=== PATIENT | female | born 1965 | race Caucasian/White ===

== ENCOUNTER 2021-03-09 13:52 | Emergency (ER) | payer OTHER, SELFPAY ==
[2021-03-09 14:05] VITALS: BP 122/69; PULSE 100; RESP 16; TEMP 38.9; O2SAT 99
--- NOTE | 2021-03-09 14:47 | ED.URI ---
HPI - URI/Sore Throat General Chief Complaint: Upper Respiratory Infection Stated Complaint: sore throat Time Seen by Provider: 03/09/21 14:50 Source: patient Mode of arrival: ambulatory Limitations: no limitations History of Present Illness HPI Narrative: 55-year-old female presented for complaint of body aches, nausea, sore throat onset today. States has been feeling bad for about 2 hours. Temperature 102.1. Has not taken anything for symptoms. She endorses her is under surveillance for COVID, awaiting his result. pt is not vaccinated for covid Related Data Allergies Allergy/AdvReac Type Severity Reaction Status Date / Time aspirin AdvReac Nausea Verified 03/09/21 15:01 Review of Systems Review of Systems: CONSTITUTIONAL: endorses body aches, fever, chills EYES: Denies visual changes, redness, or discharge. ENT: Endorses sore throat denies rhinorrhea, congestion, or otalgia. CARDIOVASCULAR: Denies chest pain, palpitations, or edema. RESPIRATORY: Denies cough or dyspnea. GASTROINTESTINAL: Denies abdominal pain, nausea, vomiting, or diarrhea. GENITOURINARY: Denies dysuria or hematuria. SKIN: Denies rash, itching, or wounds. MUSCULOSKELETAL: Denies back pain, joint pain, or myalgia. NEUROLOGIC: Denies headache, numbness, tingling, or weakness. PSYCH: Denies depression or anxiety. PMFSH Comments at time of signature, I have reviewed and agree with nursing past medical, surgical, social and family history unless otherwise noted. Please see nursing chart for further information. There is no relevant family history pertinent to the presenting complaint Exam Narrative: GENERAL: Ill-appearing, no acute distress. HEAD: Normocephalic EYES: PERRLA, conjunctivae clear ENT: Mucous membranes moist. TM pearly cho with dull light reflex bilaterally; no tragal tenderness. Oropharynx erythematous without lesions. Tonsils enlarged and without exudate, no drooling, no hoarseness, no trismus, uvula midline. NECK: Supple. No lymphadenopathy CHEST: Clear to auscultation, breath sounds equal. No wheezing, rhonchi, rales, or stridor. No respiratory distress, speaks in full sentences. HEART: Regular rate and rhythm. No murmur heard. SKIN: Warm, dry, no rash. NEURO: Alert and oriented x3. PSYCH: Normal mood and affect Course Course Emergency Course: strep neg flu neg PCR ordered Patient is aware of diagnosis, understands and agrees to treatment plan. Anticipatory guidance given. Patient agrees to follow-up as directed and is aware of reasons to seek care at the emergency department. Portions of this record may have been created with voice recognition software Level of Care: Express Care Visit Vital Signs Vital signs: Vital Signs Temperature 102.1 F H 03/09/21 14:05 Pulse Rate 100 03/09/21 14:05 Respiratory Rate 16 03/09/21 14:05 Blood Pressure 122/69 03/09/21 14:05 Pulse Oximetry 99 03/09/21 14:05 Temperature 102.8 F H 03/09/21 16:01 Pulse Rate 100 03/09/21 14:05 Respiratory Rate 16 03/09/21 14:05 Blood Pressure 122/69 03/09/21 14:05 Pulse Oximetry 99 03/09/21 14:05 reviewed MDM - URI/Sore Throat Differential Diagnosis Differential diagnosis: Likely upper respiratory infection, otitis media, viral infection and influenza Lab Data Labs: Influenza A Screen Negative Reference Range: Negative Influenza B Screen Negative Reference Range: Negative Strep Screen Presumptive Negative *(Reference Range: Negative)* Discharge Plan Discharge Clinical Impression: Viral infection Patient Disposition: Home, Self-Care Condition: Stable Instructions: Antibiotic Form, Viral Syndrome (ED), COVID-19 (Coronavirus Disease 2019) (ED) Additional Instructions: You must remain quarantined until the results of your
[2021-03-09 15:12] VITALS: TEMP 38.9
[2021-03-09] MEDS: ACETAMINOPHEN 500 MG TABLET 1000 MG PO (15:12)
[2021-03-09 16:01] VITALS: TEMP 39.3
[2021-03-09 16:45] VITALS: TEMP 39.4
[2021-03-10 21:02] LABS: SARS-CoV-2 RNA PCR Positive
== END 2021-03-09 16:48 | disposition home or self-care (01) ==
PROVIDERS: Emergency Provider Nurse Practitioner Family
DX: U07.1 COVID-19 (principal); E78.00 Pure hypercholesterolemia, unspecified; M79.7 Fibromyalgia
CPT/HCPCS: 87081; 87804; 87880; 99203; A9270; C9803; G0463; U0003; U0005

== ENCOUNTER 2021-03-15 15:07 | Emergency (ER) | payer OTHER, SELFPAY ==
[2021-03-15 15:25] VITALS: BP 126/78; PULSE 115; RESP 18; TEMP 36.4; O2SAT 99
--- NOTE | 2021-03-15 15:43 | ED.NAVMDI ---
HPI - Nausea/Vomiting/Diarrhea General Chief complaint: Nausea/Vomiting/Diarrhea Stated complaint: Nausea,headache,body aches Time Seen by Provider: 03/15/21 15:36 Source: patient and family Mode of arrival: ambulatory Limitations: no limitations History of Present Illness HPI Narrative: Jennifer is a 55-year-old female patient [facility] . Patient was diagnosed with COVID on 03/09/2021. Patient has had minor congestion and cough. Patient has had severe nausea the last few days. No vomiting. Patient complains of achiness and dizziness. States she has decreased appetite. MD elicited complaint: nausea Related Data Home Medications Medication Instructions Recorded Confirmed bupropion HCl 300 mg PO DAILY 03/15/21 03/15/21 metoprolol tartrate 50 mg PO DAILY 03/15/21 03/15/21 milnacipran [Savella] 50 mg PO DAILY 03/15/21 03/15/21 pantoprazole 40 mg PO DAILY 03/15/21 03/15/21 Allergies Allergy/AdvReac Type Severity Reaction Status Date / Time aspirin AdvReac Nausea Verified 03/15/21 15:43 Review of Systems Review of Systems: CONSTITUTIONAL: + body aches,+ fever, denies chills, or sweats. EYES: Denies visual changes, redness, or discharge. ENT: Denies rhinorrhea,+ congestion, sore throat, or otalgia. CARDIOVASCULAR: Denies chest pain, palpitations, or edema. RESPIRATORY: + cough denies dyspnea. GASTROINTESTINAL: Denies abdominal pain, +nausea, denies vomiting, or diarrhea. GENITOURINARY: Denies dysuria or hematuria. SKIN: Denies rash, itching, or wounds. MUSCULOSKELETAL: Denies back pain, joint pain, or myalgia. NEUROLOGIC: Denies headache, numbness, tingling, or weakness. PSYCH: Denies depression or anxiety. All systems reviewed & are unremarkable except as noted in HPI and below PMFSH Comments At time of signature, I have reviewed and agree with nursing past medical, surgical, social and family history unless otherwise noted. Please see nursing chart for further information. There is no relevant family history pertinent to the presenting complaint Exam Narrative: GENERAL: Well-appearing, well-nourished, appears ill. HEAD: Normocephalic, atraumatic. EYES: EOMI. No redness or drainage. Conjunctivae normal. ENT: Mucous membranes pink and minimally dry ; moist. Nares clear. No rhinorrhea. NECK: Normal AROM. Supple. No lymphadenopathy. CHEST: No respiratory distress. Clear to auscultation. HEART: Regular rate and rhythm. No murmur appreciated. Normal peripheral pulses. ABDOMEN: Soft, nontender, nondistended, normal active bowel sounds. MUSCULOSKELETAL: No bony tenderness. EXTREMITIES: Normal range of motion. No edema. SKIN: Warm, dry, no rash. Capillary refill normal. Normal skin turgor. NEURO: No focal deficits. Alert and oriented x3. Gait steady. PSYCH: Normal affect. No signs of depression or anxiety. Course Course Emergency Course: Patient was examined. Zofran 8 mg ODT was given. Patient will be given Zofran prescription. Patient is to gradually increase her fluids and food intake. Patient to follow-up as needed with her primary care. Patient to go to the ER for severe nausea and vomiting with decreased urine intake or inability to keep food or fluids down Level of Care: Express Care Visit Vital Signs Vital signs: Vital Signs Temperature 36.4 C L 03/15/21 15:25 Pulse Rate 115 H 03/15/21 15:25 Respiratory Rate 18 03/15/21 15:25 Blood Pressure 126/78 03/15/21 15:25 Pulse Oximetry 99 03/15/21 15:25 Temperature 36.4 C L 03/15/21 15:25 Pulse Rate 115 H 03/15/21 15:25 Respiratory Rate 18 03/15/21 15:25 Blood Pressure 126/78 03/15/21 15:25 Pulse Oximetry 99 03/15/21 15:25 MDM - Nausea/Vomiting/Diarrhea MDM Narrative Medical decision making narrative: Patient has COVID-19 was diagnosed on 03/09/2021. Patient is having severe nausea. Zofran 8 mg ODT was given to the patient. Patient will be given a prescription f
[2021-03-15] MEDS: ONDANSETRON HCL ODT 4 MG TABLET 8 MG SUBLINGUAL (15:47)
--- NOTE | 2021-03-15 16:21 | PC.NURSE ---
1618 pt states was only able to take 1/2 tablet becuase it was not dissolving fast enough. Pt sitting up in chair her spouse continues to do most of talking for her.
== END 2021-03-15 16:18 | disposition home or self-care (01) ==
PROVIDERS: Emergency Provider Nurse Practitioner Family
DX: U07.1 COVID-19 (principal); R11.0 Nausea; E78.00 Pure hypercholesterolemia, unspecified; M79.7 Fibromyalgia; F32.A Depression, unspecified
CPT/HCPCS: 99213; A9270; G0463

== ENCOUNTER 2022-04-01 11:48 | Emergency (ER) | payer OTHER, SELFPAY ==
[2022-04-01 11:53] VITALS: BP 116/70; PULSE 66; RESP 18; TEMP 36.7; O2SAT 99
--- NOTE | 2022-04-01 12:10 | ECG_ITS ---
Measurements Intervals [place] Rate: 75 P: 59 ND: 151 QRS: 26 QRSD: 88 T: 11 QT: 394 QTc: 440 Interpretive Statements SINUS RHYTHM NONSPECIFIC T-WAVE ABNORMALITY ABNORMAL ECG NO PREVIOUS ECG AVAILABLE FOR COMPARISON Electronically Signed On 04-01-2022 14:01:01 BOAT OPERATOR by Tk Betts M.D.
--- NOTE | 2022-04-01 12:12 | ED.CHESTPAIN ---
HPI - Chest Pain General Chief Complaint: Chest Pain Stated Complaint: cp Time Seen by Provider: 04/01/22 11:50 Source: patient, RN notes reviewed and old records reviewed Mode of arrival: ambulatory Limitations: no limitations History of Present Illness HPI narrative: 56-year-old FEMALE WHO PRESENTS TO [facility] with complaints of developing episode today at 1130 while at work of left upper chest pain radiating to her left shoulder with shoulder feeling tight;patient denies any nausea or vomiting,no diaphoresis noted or dyspnea, no radiation of pain to her back or to jaw. Pain has history of SVT and takes metoprolol daily with present heart rate 66 beats per minute MD complaint: chest pain and other (radiation to left shoulder) Pertinent past history: other (SVT) Onset (ago): hour(s) (today at 1130) Pain scale (0-10): 5 Treatment prior to arrival: none Related Data Home Medications Medication Instructions Recorded Confirmed bupropion HCl 300 mg 24 hr tablet, 300 mg PO DAILY 03/15/21 04/01/22 extended release metoprolol tartrate 50 mg tablet 50 mg PO DAILY 03/15/21 04/01/22 milnacipran 50 mg tablet (Savella) 50 mg PO DAILY 03/15/21 04/01/22 pantoprazole 40 mg tablet,delayed 40 mg PO DAILY 03/15/21 04/01/22 release pregabalin 150 mg capsule 150 mg DAILY 04/01/22 04/01/22 Allergies Allergy/AdvReac Type Severity Reaction Status Date / Time codeine Allergy Difficulty Verified 04/01/22 17:13 Breathing aspirin AdvReac Nausea Verified 04/01/22 17:13 Review of Systems Review of Systems: CONSTITUTIONAL: Denies fever, chills, or sweats. EYES: Denies visual changes, redness, or discharge. ENT: Denies rhinorrhea, congestion, sore throat, or otalgia. CARDIOVASCULAR: report left upper chest pain radiating to left shoulder with tightness feeling,no palpitations, or edema. RESPIRATORY: Denies cough or dyspnea. GASTROINTESTINAL: Denies abdominal pain, nausea, vomiting, or diarrhea. GENITOURINARY: Denies dysuria or hematuria. SKIN: Denies rash or itching. MUSCULOSKELETAL: Denies back pain, joint pain, or myalgia. NEUROLOGIC: Denies headache, numbness, or weakness. PSYCHIATRIC: Denies anxiety or depression. All systems reviewed & are unremarkable except as noted in HPI and below PMFSH Past Medical History Medical History (Updated 04/02/22 @ 12:08 by Celsa Akers NP) Atypical chest pain Hyperlipidemia SVT (supraventricular tachycardia) Surgical History Surgical History (Updated 04/02/22 @ 11:50 by Celsa Akers NP) H/O tubal ligation H/O: hysterectomy Family History Family History (Updated 04/02/22 @ 11:49 by Celsa Akers NP) Father Heart disease Acute myocardial infarction Hypertension Grandparent Heart disease Mother Stomach cancer Social History Social History (Updated 04/02/22 @ 11:56 by Celsa Akers NP) Smoking status: Former smoker Additional smoking assessment comments: quit 2006 Alcohol intake: never Substance use: never Living arrangements: with family Gender identity (if verbalized by the patient): Female Comments At time of signature, agree with nursing past medical, surgical, social and family history. There is no relevant family history pertinent to the presenting complaint Exam Narrative: GENERAL: Well-appearing, well-nourished, and in no acute distress. HEAD: Normocephalic, atraumatic. EYES: PERRLA and EOMI. ENT: Nares clear, no rhinorrhea or epistaxis. Mucous membranes moist.TM's normal with good light reflex, throat pink with no swelling NECK: Supple.no lymphadenopathy CHEST: Clear to auscultation. No respiratory distress.SAO2 99% on room air HEART: Regular rate and rhythm. No murmur heard. Normal peripheral pulses.no edema, left sided chest pain with radiation to left shoulder described as tightness, no dyspnea, no diahoresis noted ABDOMEN: Soft, nontender, nondistended, normal active bowel sounds. EXTREMITIES: Normal range of motion. No
== END 2022-04-01 12:10 | disposition short-term general hospital (02) ==
LOC: EXPCOLL 11:51
PROVIDERS: Emergency Provider Registered Nurse
DX: R07.9 Chest pain, unspecified (principal); R94.31 Abnormal electrocardiogram [ECG] [EKG]; Z87.891 Personal history of nicotine dependence; E78.5 Hyperlipidemia, unspecified
CPT/HCPCS: 93005; 99215; G0463

== ENCOUNTER 2022-04-01 12:30 | Emergency (ER) | payer OTHER, SELFPAY ==
[2022-04-01] VITALS (20 sets, daily range): BP systolic 111–131; BP diastolic 62–83; PULSE 72–85; RESP 11–22; TEMP 36.4; O2SAT 96–100
--- NOTE | ~2022-04-01 | XR_ITS ---
EXAMINATION: XR chest 2V DATE: 04/01/2022 13:16 INDICATION: Chest pain TECHNIQUE: PA and lateral views of the chest were obtained. COMPARISON: None FINDINGS: The lungs are clear with no focal airspace opacities, pulmonary edema, pleural effusion or pneumothor ax. The cardiomediastinal silhouette is normal. Visualized bones and soft tissues are unremarkable. IMPRESSION: 1. No acute cardiopulmonary disease. Reviewed, dictated and finalized at location A. PATTERN ASSEMBLER
--- NOTE | 2022-04-01 12:35 | ECG_ITS ---
Measurements Intervals [place] Rate: 72 P: 49 VA: 158 QRS: 23 QRSD: 85 T: -8 QT: 391 QTc: 429 Interpretive Statements SINUS RHYTHM LOW QRS VOLTAGE IN PRECORDIAL LEADS [QRS DEFLECTION < 1.0 mV IN CHEST LEADS] NONSPECIFIC ST & T-WAVE ABNORMALITY COMPARED TO ECG 04/01/2022 11:57:27 NO SIGNIFICANT CHANGES Electronically Signed On 04-02-2022 14:28:11 NURSE SUBSTANCE ABUSE by Mat Pickering M.D.
[2022-04-01 12:54] LABS: Basophils Absolute Auto 0.1 K/mm3 (0.0-0.1); Basophils Percent Auto 0.8 % (0.2-1.2); Eosinophils Absolute Auto 0.1 K/mm3 (0-0.3); Eosinophils Percent Auto 1.3 % (0-4.4); Hematocrit 43.3 % (37.0-47.0); Hemoglobin 14.5 g/dL (12.0-15.0); Immature Granulocyte Absolute 0.02 K/mm3 (0.00-0.031); Immature Granulocyte Percent A 0.2 % (0-0.5); Lymphocytes Absolute Auto 3.28 K/mm3 (0.9-3.2); Mean Corpuscular HGB Conc 33.5 g/dl (32-36); Mean Corpuscular Hemoglobin 30.3 pg (26-34); Mean Corpuscular Volume 90.4 fl (80-100); Mean Platelet Volume 10.3 fl (7.4-10.4); Monocytes Absolute Auto 0.6 K/mm3 (0.1-0.6); Monocytes Percent Auto 6.5 % (2.6-8.5); Neutrophils Percent Auto 55.2 % (45.5-73.1); Platelet Count Result 327 k/mm3 (150-375); Red Blood Count 4.79 M/mm3 (4.2-5.4); Red Cell Distribution Width 12.9 % (11.5-14.5); White Blood Count 9.1 K/mm3 (4.5-10.0)
[2022-04-01 13:02] LABS: Partial Thromboplastin Time 25.7 SECONDS (22.3-36.8); Prothrombin Time 13.2 Seconds (11.1-14.7)
[2022-04-01 13:04] LABS: Alanine Aminotransferase 47 U/L (6-35); Albumin Level 4.1 g/dL (3.5-5.1); Alkaline Phosphatase 79 U/L (38-126); Anion Gap 7 mmol/L (8-16); Aspartate Amino Transferase 50 U/L (14-36); Bilirubin,Total 0.7 mg/dL (0.2-1.3); Blood Urea Nitrogen 15 mg/dL (7-17); Carbon Dioxide 29 mmol/L (22-30); Chloride 103 mmol/L (98-107); Estimated Glomerular Filt Rate > 60; Glucose 135 mg/dL (65-110); Lipase 83 U/L (23-300); Potassium 4.1 mmol/L (3.4-5.0); Sodium 139 mmol/L (137-145)
[2022-04-01 13:15] LABS: Troponin I < 0.012 ng/mL (0.000-0.034)
[2022-04-01 17:41] LABS: Troponin I < 0.012 ng/mL (0.000-0.034)
--- NOTE | 2022-04-01 18:34 | ED.CHESTPAIN ---
HPI - Chest Pain General Chief Complaint: Chest Pain Stated Complaint: feels funny Time Seen by Provider: 04/01/22 18:34 Source: patient and family Mode of arrival: ambulatory Limitations: no limitations History of Present Illness HPI narrative: Patient is a 56-year-old female with a history of SVT and hyperlipidemia presenting to the emergency department for evaluation of chest pain that began around 11 AM today. Patient states that there was a weird episode where she felt very strange but then denied to be having any acute chest pain. She denied any focal lightheadedness or dizziness, states that it felt like a warmth came over her body. She denied any nausea, vomiting, shortness of breath. She denied any pleuritic chest pain. She did not pass out. Patient states that she thought she may be having a recurrent episode of SVT but then she denied any palpitation type sensation. Patient was referred here after being initially seen in urgent care. Patient without fever, chills, nausea or vomiting. Denies any infectious type symptoms. Denies any recent medication changes. Denies any recurrent symptoms and now feels well. Patient denies history of coagulopathy. No history of recent COVID infection. She denies leg swelling or calf pain. She denies recent surgery or immobility. Related Data Home Medications Medication Instructions Recorded Confirmed bupropion HCl 300 mg 24 hr tablet, 300 mg PO DAILY 03/15/21 04/01/22 extended release metoprolol tartrate 50 mg tablet 50 mg PO DAILY 03/15/21 04/01/22 milnacipran 50 mg tablet (Savella) 50 mg PO DAILY 03/15/21 04/01/22 pantoprazole 40 mg tablet,delayed 40 mg PO DAILY 03/15/21 04/01/22 release pregabalin 150 mg capsule 150 mg DAILY 04/01/22 04/01/22 Allergies Allergy/AdvReac Type Severity Reaction Status Date / Time codeine Allergy Difficulty Verified 04/01/22 17:13 Breathing aspirin AdvReac Nausea Verified 04/01/22 17:13 Review of Systems Review of Systems: CONSTITUTIONAL: Denies fever, chills, or sweats. EYES: Denies visual changes, redness, or discharge. ENT: Denies rhinorrhea, congestion, sore throat, or otalgia. CARDIOVASCULAR: Denies chest pain, palpitations, or edema. RESPIRATORY: Denies cough or dyspnea. GASTROINTESTINAL: Denies abdominal pain, nausea, vomiting, or diarrhea. GENITOURINARY: Denies dysuria or hematuria. SKIN: Denies rash or itching. MUSCULOSKELETAL: Denies back pain, joint pain, or myalgia. NEUROLOGIC: Denies headache, numbness, or weakness. [facility] Past Medical History Medical History (Updated 04/01/22 @ 19:37 by Celsa Brice MD) Atypical chest pain Hyperlipidemia SVT (supraventricular tachycardia) Social History Social History (Updated 04/01/22 @ 19:37 by Celsa Brice MD) Smoking status: Never smoker Alcohol intake: never Substance use: never Living arrangements: with family Gender identity (if verbalized by the patient): Female Exam Narrative: GENERAL: Awake, alert, conversant HEAD: Normocephalic, atraumatic. EYES: PERRLA and EOMI. ENT: Nares clear, no rhinorrhea or epistaxis. Mucous membranes moist. NECK: Supple. CHEST: No respiratory distress, breathing even and non labored HEART: Regular rate, sinus rhythm ABDOMEN:Non distended, non tender EXTREMITIES: Normal range of motion. No edema.No calf tenderness bilaterally. No erythema. SKIN: Warm, dry, no rash. NEURO:No focal deficits. Alert and oriented x3 Course Vital Signs Vital signs: Vital Signs Temperature 36.4 C 04/01/22 12:41 Pulse Rate 72 04/01/22 12:41 Respiratory Rate 19 04/01/22 12:41 Blood Pressure 130/83 04/01/22 12:41 Pulse Oximetry 100 04/01/22 12:41 Temperature 36.4 C 04/01/22 12:41 Pulse Rate 78 04/01/22 19:01 Respiratory Rate 11 L 04/01/22 19:01 Blood Pressure 123/66 04/01/22 19:00 Pulse Oximetry 98 04/01/22 19:01 MDM - Chest Pain MDM Narrative Medical decision making narrative
[2022-04-01 18:56] LABS: Troponin I < 0.012 ng/mL (0.000-0.034)
== END 2022-04-01 19:43 | disposition home or self-care (01) ==
PROVIDERS: Emergency Provider Emergency Medicine; PCP Internal Medicine Interventional Cardiology
DX: R07.89 Other chest pain (principal); E78.5 Hyperlipidemia, unspecified; R94.31 Abnormal electrocardiogram [ECG] [EKG]
CPT/HCPCS: 36415; 71046; 80053; 83690; 84484; 85025; 85610; 85730; 93005; 99284

== ENCOUNTER 2023-11-23 11:18 | Emergency (ER) | payer OTHER, SELFPAY ==
[2023-11-23 11:27] VITALS: BP 118/72; PULSE 73; RESP 16; TEMP 36.2; O2SAT 97
--- NOTE | 2023-11-23 11:36 | ED.EAR ---
HPI - Ear Problem General Chief complaint: Ear Stated complaint: ear infection Time Seen by Provider: 11/23/23 11:36 Source: patient Mode of arrival: ambulatory Limitations: no limitations History of Present Illness HPI Narrative: 58-year-old female presents with complaint of right ear pain for 2 days. Afebrile. Denies hearing changes but states she has been told recently from her coworkers that it seems like she is having difficulty hearing. Plans to discuss this with her primary care physician. Patient reports 2 weeks ago was having some sinus congestion, postnasal drainage but seem like it had resolved. No other complaints today. All systems reviewed and negative except as noted above. Related Data Home Medications Medication Instructions Recorded Confirmed bupropion HCl 300 mg 24 hr tablet, 300 mg PO DAILY 03/15/21 11/23/23 extended release metoprolol tartrate 50 mg tablet 50 mg PO DAILY 03/15/21 11/23/23 milnacipran 50 mg tablet (Savella) 50 mg PO BID 03/15/21 11/23/23 pantoprazole 40 mg tablet,delayed 40 mg PO DAILY 03/15/21 11/23/23 release pregabalin 150 mg capsule 150 mg PO BID 04/01/22 11/23/23 blood sugar diagnostic ([facility] 11/23/23 11/23/23 Verio test strips) cholecalciferol (vitamin D3) 125 125 mcg PO DAILY 11/23/23 11/23/23 mcg (5,000 unit) tablet (Vitamin D3) lancets 30 gauge (OneTouch Delica 11/23/23 11/23/23 Plus Lancet) semaglutide 3 mg tablet (Rybelsus) 3 mg PO DAILY 11/23/23 11/23/23 Allergies Allergy/AdvReac Type Severity Reaction Status Date / Time codeine Allergy Severe Difficulty Verified 11/23/23 11:25 Breathing aspirin AdvReac Intermediate Nausea Verified 11/23/23 11:25 Review of Systems Review of Systems: CONSTITUTIONAL: Denies fever, chills, or sweats. EYES: Denies visual changes, redness, or discharge. ENT: Denies rhinorrhea, congestion, sore throat . Reports right ear pain. CARDIOVASCULAR: Denies chest pain, palpitations, or edema. RESPIRATORY: Denies cough or dyspnea. GASTROINTESTINAL: Denies abdominal pain, nausea, vomiting, or diarrhea. GENITOURINARY: Denies dysuria or hematuria. SKIN: Denies rash or itching. MUSCULOSKELETAL: Denies back pain, joint pain, or myalgia. NEUROLOGIC: Denies headache, numbness, or weakness. PSYCHIATRIC: Denies anxiety or depression. All other systems reviewed are negative, except as documented in HPI. [facility] Past Medical History Medical History (Updated 11/23/23 @ 11:45 by Vaishali Romero NP) Atypical chest pain Hyperlipidemia SVT (supraventricular tachycardia) Surgical History Surgical History (Updated 04/02/22 @ 11:50 by Celsa Akers NP) H/O tubal ligation H/O: hysterectomy Family History Family History (Updated 04/02/22 @ 11:49 by Celsa Akers NP) Father Heart disease Acute myocardial infarction Hypertension Grandparent Heart disease Mother Stomach cancer Social History Social History (Updated 04/02/22 @ 11:56 by Celsa Akers NP) Smoking status: Former smoker Additional smoking assessment comments: quit 2006 Alcohol intake: never Substance use: never Living arrangements: with family Gender identity (if verbalized by the patient): Female Comments At time of signature, agree with nursing past medical, surgical, social and family history. There is no relevant family history pertinent to the presenting complaint. Exam Narrative: GENERAL: This is a well-nourished, well-developed patient, in no apparent distress. HEAD: normocephalic, atraumatic. EYES: PERRL. Sclera clear/white. Vision is grossly intact. EARS: External ears normal, auditory canals clear and without drainage, Left TM normal without perforation. Right TM is mildly erythematous with fluid. No perforation. Hearing grossly intact. NOSE: External nose normal with no obvious nasal discharge, nares without redness, no rhinorrhea. THROAT: Mucous membranes moist, posterior pharynx clear.
== END 2023-11-23 11:47 | disposition home or self-care (01) ==
PROVIDERS: Emergency Provider Nurse Practitioner Family; PCP Family Medicine Sports Medicine
DX: H65.01 Acute serous otitis media, right ear (principal); Z87.891 Personal history of nicotine dependence; E78.5 Hyperlipidemia, unspecified
CPT/HCPCS: 99213; G0463

== ENCOUNTER 2024-05-29 02:06 | Emergency (ER) | payer OTHER, SELFPAY ==
--- NOTE | ~2024-05-29 | XR_ITS ---
Portable chest x-ray Comparison: 04/01/2022 Clinical History: Heartburn Findings: Lungs are clear, without focal consolidation or pleural effusion. Cardiomediastinal silho uette is stable. Bones and soft tissues are unremarkable. Impression: Clear lungs. Reviewed, dictated and finalized at location . Impression: Clear lungs.
--- OUTSIDE RECORDS SUMMARY | 2024-05-29 02:08 | XMS_ITS | Referral Summary ---
Author Organization [facility] Address [address] [place] [address] Care Team Providers Care Chief Supply Chain Officer Name Role Phone Bhavana Castorena NP Primary Care Provider [phone] Encounters Date Type Department Care Team Description 05/02/2024 2:15 PM REMANUFACTURING TECHNICIAN Office Visit [facility] Care at [address] [phone] Kita Logan PA Diarrhea, unspecified type (Primary Dx) 03/21/2024 Telephone [facility] at [address] [phone] Bhavana Castorena NP PA for Ozempic 03/21/2024 10:30 AM REMANUFACTURING TECHNICIAN Office Visit [facility] at [address] [phone] Bhavana Castorena NP Type 2 diabetes mellitus without complication, without long-term current use of insulin (HCC) (Primary Dx); Recurrent major depressive disorder, in partial remission; Fibromyalgia; History of supraventricular tachycardia; Gastroesophageal reflux disease without esophagitis; Vitamin B12 deficiency; Vitamin D deficiency; Mixed hyperlipidemia; Visit for screening mammogram; Type 2 diabetes mellitus with hyperglycemia, without long-term current use of insulin (HCC) 03/15/[address] [address] Ira Yo MD 03/14/2024 Orders Only [facility] [address] [place] [phone] Tierra Orlando NP Fibromyalgia from Last 3 Months Allergies Active Allergy Reactions Criticality Noted Date Comments Aspirin Nausea only Low 06/02/2018 Glipizide Rash Medium 05/31/2023 Hydrocodone Shortness of breath High 09/08/2017 Itching Metformin Diarrhea Low 10/21/2022 Did not tolerate metformin ER 500 mg. Oxycodone-Acetaminophe n Anaphylaxis High 01/09/2018 Prednisone Shortness of breath High 06/02/2018 [place] Other (See comments) Low 09/08/2017 RESPIRATORY DISTRESS, SHORTNESS OF BREATH Acetaminophen-Codeine Other (See comments) Low 07/30 Makes her jittery Ondansetron Shortness of breath High 03/25/2021 Medications multivit-min/iron/ folic acid/K (ADULTS MULTIVITAMIN ORAL) Take 1 tablet by mouth daily Active cyanocobalamin, vitamin B-12, 1,000 mcg tablet extended release Take 1 tablet by mouth daily Active cholecalciferol (Vitamin D3) 5,000 unit tablet Take 1 tablet (5,000 Units total) by mouth daily Active alcohol swabs pads, medicatedIndicatio ns:Type 2 diabetes mellitus with hyperglycemia, without long-term current use of insulin (HCC) Test daily before breakfast 100 each 1 3 Active blood-glucose meter (OneTouch Verio Flex meter) miscIndications:Ty pe 2 diabetes mellitus with hyperglycemia, without long-term current use of insulin (HCC) Use 1 strip daily to test blood sugar prior to breakfast 1 each 3 Active rosuvastatin (CRESTOR) 20 mg tabletIndications: Mixed hyperlipidemia Take 1 tablet (20 mg total) by mouth daily 90 tablet 3 4 Active metoprolol tartrate (LOPRESSOR) 50 mg immediate release tabletIndications: Inappropriate sinus tachycardia Take 1 tablet (50 mg total) by mouth 2 (two) times a day 180 tablet 1 4 Active blood glucose diagnostic (glucose blood) stripIndications:T ype 2 diabetes mellitus with hyperglycemia, without long-term current use of insulin (HCC) Use 1 strip 3x to check blood sugar before meals 200 each 2 4 01/11/20 25 Active lancets (OneTouch Delica Plus Lancet) 30 gauge miscIndications:Ty pe 2 diabetes mellitus with hyperglycemia, without long-term current use of insulin ([facility]) Test blood glucose level three times daily before meals 200 each 2 4 Active milnacipran (Savella) 50 mg tabletIndications: Fibromyalgia Take 1 tablet (50 mg total) by mouth 2 (two) times a day 180 tablet 5 Active semaglutide (OZEMPIC) 0.25 mg or 0.5 mg (2 mg/3 mL) pen injector injection Inject 0.38 mL (0.2533 mg total) under the skin every 7 days 3 mL 1 5 Active pregabalin (LYRICA) 150 mg capsuleIndications :Fibromyalgia Take 1 capsule (150 mg total) by mouth 2 (two) times a day 180 capsule [address] (PROTONIX) 40 mg EC tabletIndications: Gastroesophageal reflux disease without esophagitis Take 1 tablet (40 mg total) by mouth daily 90 tablet 1 5 Active buPROPion XL (WELLBUTRIN XL) 300 mg 24 hr tabletIndications: Fibromyalgia Take 1 tablet (300 mg total) by mouth every morning 90 tablet 3 5 Active Active Problems Problem Noted Date Diagnosed Date 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 Continue pain medications. Patient does have some chronic pelvic pain issues at times but this is been stable recently Nonrheumatic mitral (valve) insufficiency 2016 Overview (04/28/2022): Trace to mild on echo cardiac and done on 04/12/2016 Type 2 diabetes mellitus wit hout complication, without long-term current use of insulin 06/17/2016 Assessment & Plan (03/21/2024 11:47 AM REMANUFACTURING TECHNICIAN): She has difficulty taking rybelsus due to schedule and she hasn't been able to increase dose due to stomach upset. I would like to try ozempic with her. Discussed starting dose of .25mg weekly. start pt on ozempic 0.25mg weekly x 2-4 wks, then increase to 0.5mg x 2-4 wks, then return to office. Demo pen used to show pt how to use the medication. Discussed that fluid in window needs to be clear, prime with the 2 dots on first use of pen only. Discussed the importance of site rotation, stay 2 fingerbreadths away from belly button. Inject until you hear the full click, then count to 5 before removing pen. Discussed the importance of cutting meals in half starting after first dose. Discussed that this will slow gastric emptying which will make pt feel full longer and fill up faster. Discussed the one bite or one gulp too much scenario that can increase nausea/vomiting. Listen to your body. Reiterated that pt does not have family or personal history of medullary thyroid cancer or pancreatitis. Assessment & Plan (09/13/2023 6:31 PM CDT): Chronic. Controlled. Tolerating the Rybelsus 3 mg daily. Given diabetes well-controlled we will see if the insurance will allow her to stay on 3 mg dose. If not covered long-term then we may have to try going up to the 7 mg dose but I do worry she could have some mild intolerance of the dose as it took her awhile to tolerate the 3. Continue working on diabetic diet, exercise and weight loss. We still need a copy of her last report Assessment & Plan (05/26/2023 7:54 PM CDT): Chronic. Poorly controlled. Control has been worsening over the last several months. Patient previously had been intolerant to metformin. She refused to try an alternative medication at last visit with a request to do 3 months of additional diet and lifestyle changes. Given control is not improving today and has actually gotten worse patient is advised that we do need to really start her on a medication. We discussed various medication options including SGLT2 medications, Rybelsus, GLP 1 injections as well as sulfonylureas like glipizide. After discussion of the risks and benefits of these options patient elected to start with glipizide. We did discuss risk for hypoglycemia, weight gain in addition to alternative side effects. She is to take daily. Encouraged patient to really work on diabetic diet, exercise and weight loss. Diabetes Education Reviewed diabetic disease process, standards of care, and possible disease complications I have discussed the following steps for improving diabetic care: diabetic diet with healthy meals that are low salt, low fat, high fiber daily 30 minutes of exercise (45-60 minutes if trying to lose weight) Encouraged to loose weight if overweight/obese, or maintain a healthy body weight if BMI normal home glucose monitoring and goals (fast 70-130 and 2 hr PP <180) HgA1C goal <7% If checking home bp, goal less than 140/90 on average, even better if <130/85 Check feet daily for sores, dryness, cracking; use daily moisturizer if needed and invest in good shoes See eye doctor at least once per year and have report sent to us KAREN (obstructive sleep apnea) 01/14/2016 Overview (08/23/2022): Not currently on CPAP due to remote intolerance. Has not had evaluation or care in many years Recurrent major depressive disorder, in partial remission 01/13/2016 Assessment & Plan (09/13/2023 6:31 PM CDT): Chronic. Mood is controlled. Continue current medication Assessment & Plan (05/26/2023 7:53 PM CDT): Chronic. Stable on bupropion. Continue. She has not currently ready to get off medication Osteopenia 01/13/2016 History of supraventricular tachycardia 10/22/19 16 Overview (01/08/2019): History of it being aborted with adenosine on 01/18/2014 with recurrent palpitations consistent with SVT status post electrophysiology study and radiofrequency ablation by Dr. Verduzco in December 2014 without recurrence. Assessment & Plan (03/21/2024 10:50 AM REMANUFACTURING TECHNICIAN): Hx SVT, has had an ablation. Currently on metoprolol 50mg bid. Still sees cardiology. - Dr Guevara Assessment & Plan (09/13/2023 6:30 PM CDT): Denies recent episodes. Continue beta-samantha. Monitor Assessment & Plan (05/26/2023 7:56 PM CDT): Chronic. No recent episodes. Remains on beta-samantha for heart rate control. Patient worries about any diabetic medications that could increase risk for heart rate elevation Sinus tachycardia 10/22/2015 Overview (04/28/2022): Nearly 70% of the time as noted on 24 hour Holter monitor, resolved on Toprol-XL 50 mg daily asymptomatic. Assessment & Plan (09/13/2023 6:31 PM CDT): Remains controlled with metoprolol. Continue. Asymptomatic Assessment & Plan (05/26/2023 7:58 PM CDT): Chronic history of intermittent sinus tachycardia. Has been controlled with beta-blockers. Continue metoprolol. Patient is afraid to consider diabetic meds if they carry any risk for elevated heart rate Solitary pulmonary nodule 10/22/2015 Overview (03/21/2024): CT scans were followed for 4 years and were stable and no further follow up recommended GERD (gastroesophageal reflux disease) 6 Assessment & Plan (03/21/2024 10:51 AM REMANUFACTURING TECHNICIAN): Stable on current medication. Continue pantoprazole as ordered. May follow up in 6 months Assessment & Plan (05/26/2023 7:59 PM CDT): Chronic. Stable. Continue Protonix. Patient likely still needs to get an EGD for screening given family history of strong symptoms and her inability to wean off PPI in the future. Encouraged her to schedule with GI Vitamin B12 deficiency 09/03/2015 Assessment & Plan (03/21/2024 10:52 AM REMANUFACTURING TECHNICIAN): Currently on oral B12 Vitamin D deficiency 09/03/2015 Assessment & Plan (03/21/2024 11:48 AM REMANUFACTURING TECHNICIAN): Continues on oral vitamin d Mixed hyperlipidemia 09/03/2015 Assessment & Plan (03/21/2024 10:52 AM REMANUFACTURING TECHNICIAN): Lipid abnormalities are stable, reviewed previous lipid levels in [facility]. Continue statin therapy. Crestor (rosuvastatin) Order for lipid panel was given today to be obtained. Pt voiced understanding of lab drawn and continuation of current medication regimen. Assessment & Plan (09/13/2023 6:31 PM CDT): Chronic. Tolerates rosuvastatin. Continue Assessment & Plan (05/26/2023 7:55 PM CDT): Chronic. Tolerates rosuvastatin. Continue/.. Plan to target LDL goal less than 70 eventually Fibromyalgia 05/12/2015 Assessment & Plan (03/21/2024 10:49 AM REMANUFACTURING TECHNICIAN): Start to wean some medication per patient request. Will decrease savella to once a day for 1-2 weeks and then discontinue. Will have her follow up in 3 months for med check. Continue lyrica. Assessment & Plan (09/13/2023 6:31 PM CDT): Chronic. Relatively stable. Continue current regimen as prescribed mentioned in HPI Assessment & Plan (05/26/2023 7:55 PM CDT): Chronic. Tolerates medications. We will go ahead and refill the Savella as well as continue the current dose of Lyrica. Encouraged to work on diet, exercise and weight loss. Advised at regular x-rays is 1 remains his maintaining control fibromyalgia which is why it is very important she tries to get a least some physical activity Resolved Problems Problem Noted Date Diagnosed Date Resolved Date Myocardial ischemia 05/04/2022 05/05/19 23 Dyspnea in pediatric patient 04/28/2022 08/23/2022 Palpitations in pediatric patient 04/28/2022 05/04/2022 Postprandial epigastric pain 04/28/2022 08/23/2022 Epigastric pain 06/25/2019 08/23/2022 Abnormal ECG 06/25/2019 08/23/2022 Nonrheumatic mitral valve regurgitation 06/25/2019 09/13/2023 Body mass index (BMI) of 31.0-31.9 in adult 12/09/2016 08/23/2022 Constipation 09/22/2016 08/23/2022 Hyperlipidemia 08/01/2016 08/23/2022 Chest pain 06/09/2016 08/23/2022 Overview (04/28/2022): /Pressure and pressure underneath her diaphragm lasting about 18 hours with normal cardiac enzymes and normal EKG is seen in the emergency department on 07/19/2017 , no symptoms with her regular exercise regimen with no scintigraphic evidence of ischemia Nausea 06/09/2016 08/23/2022 Dry mouth 06/09/2016 03/21/2024 Elevated fasting blood sugar 06/09/2016 08/23/2022 Obesity due to excess calori es with serious comorbidity 06/09/2016 03/21/2024 Assessment & Plan (09/13/2023 6:32 PM CDT): Chronic. Suboptimally controlled. Encouraged healthy diet, exercise and weight loss Assessment & Plan (05/26/2023 7:57 PM CDT): Chronic. Uncontrolled. Needs improvement. Counseled on healthy diet, exercise, weight loss. Encouraged her to work on diet and lifestyle modifications to help get BMI had in the right direction. Patient is aware the glipizide can carry some risk for slight weight gain as a side effect but declined alternative diabetic medications that can have weight loss benefits Hyperlipidemia 01/14/2016 08/23/2022 Iron deficiency 01/14/2016 08/23/2022 Pelvic adhesions 01/14/2016 03/21/2024 Well woman exam 12/10/2015 08/23/2022 Dizziness 10/22/2015 08/23/2022 Overview (04/28/2022): Associated with shortness of breath, now resolved. She had nonspecific ST abnormality during SVT had a normal Lexiscan Myoview stress test on 01/19/2014 Reactive depression (situational) 09/03/2015 08/23/2022 Snoring 09/03/2015 08/23/2022 Chronic fatigue 06/09/2015 08/23/2022 Immunizations Immunization Administration Dates Next Due Influenza, Unspecified 02/28/2023(Deferred: Nadia ent Refused) TD Preservative Free 09/03/2007 Tdap 09/03/2007 Social History Tobacco Use Types Packs/Day Years Used Date Smoking Tobacco: Former Smokeless Tobacco: Never Tobacco Cessation:Counseling Given: Not Answered Alcohol Use Standard Drinks/Week Comments Not Currently 0 (1 standard drink = 0.6 oz pur e alcohol) AUDIT-C Answer Date Recorded Q1: How often do you have a drink containing alcohol? Never 03/21/2024 Q2: How many drinks containi ng alcohol do you have on a typical day when you are drinking? Patient does not drink Q3: How often do you have si x or more drinks on one occasion? Never 03/21/2024 PHQ-2 Answer Date Recorded PHQ-2 Total Score (If total score is 3 or more points, staff should administer the PHQ-9) 0 09/13/2023 Personal Safety Answer Date Recorded Have you ever been in or are you currently in a harmful physical or emotional relationship or is someone making you feel afraid or unsafe? Denies 06/09/2022 Comments No Sex and Gender Information Value Date Recorded Sex Assigned at Not on file Legal Sex Female 8:40 AM REMANUFACTURING TECHNICIAN Gender Identity Not on file Sexual Orientation Not on file Last Filed Vital Signs Vital Sign Reading Time Taken Comments Blood Pressure 96/63 05/02/2024 2:10 PM REMANUFACTURING TECHNICIAN Pulse 89 05/02/2024 2:10 PM REMANUFACTURING TECHNICIAN Temperature 36.7 C (98 F) 05/02/2024 2:10 PM REMANUFACTURING TECHNICIAN Respiratory Rate 16 05/02/2024 2:10 PM REMANUFACTURING TECHNICIAN Oxygen Saturation 98% 05/02/2024 2:10 PM REMANUFACTURING TECHNICIAN Inhaled Oxygen Concentration - - Weight 77.6 kg (171 lb) 05/02/2024 2:10 PM REMANUFACTURING TECHNICIAN Height 149.9 cm (4' 11 ) 03/21/2024 10:32 AM REMANUFACTURING TECHNICIAN Body Mass Index 34.54 03/21/2024 10:32 AM REMANUFACTURING TECHNICIAN Plan of Treatment Not on file Procedures Procedure Name Priority Date/Time Associated Diagnosis Comments POCT HEMOGLOBIN A1C Routine 03/21/2024 10:43 AM REMANUFACTURING TECHNICIAN Type 2 diabetes mellitus with hyperglycemia, without long-term current use of insulin (HCC) THYROID FUNCTION CASCADE Routine 03/16/2024 7:45 AM REMANUFACTURING TECHNICIAN Type 2 diabetes mellitus without complication, without long-term current use of insulin (HCC) Sinus tachycardia ALBUMIN CREATININE RATIO, URINE Routine 03/16/2024 7:45 AM REMANUFACTURING TECHNICIAN Type 2 diabetes mellitus without complication, without long-term current use of insulin (HCC) CBC WITH AUTO DIFFERENTIAL Routine 03/16/2024 7:45 AM REMANUFACTURING TECHNICIAN Type 2 diabetes mellitus without complication, without long-term current use of insulin (HCC) LIPID PANEL Routine 03/16/2024 7:45 AM REMANUFACTURING TECHNICIAN Type 2 diabetes mellitus without complication, without long-term current use of insulin (HCC) Mixed hyperlipidemia COMPREHENSIVE METABOLIC PANEL Routine 03/16/2024 7:45 AM REMANUFACTURING TECHNICIAN Type 2 diabetes mellitus without complication, without long-term current use of insulin (HCC) Mixed hyperlipidemia HEPATITIS B CORE IGM Routine 03/16/2024 7:45 AM REMANUFACTURING TECHNICIAN Need for hepatitis B screening test HEPATITIS B SURFACE ANTIBODY (IMMUNE STATUS) Routine 03/16/2024 7:45 AM REMANUFACTURING TECHNICIAN Need for hepatitis B screening test HEPATITIS B SURFACE ANTIGEN Routine 03/16/2024 7:45 AM REMANUFACTURING TECHNICIAN Need for hepatitis B screening test HEPATITIS C ANTIBODY Routine 03/16/2024 7:45 AM REMANUFACTURING TECHNICIAN Encounter for hepatitis C screening test for low risk patient SCREENING MAMMOGRAM BILATERAL W SERAFIN Schedule Routine, Read Routine (OP Routine) 02/09/2023 4:24 PM REMANUFACTURING TECHNICIAN Screening mammogram, encounter for from Last 3 Months or Most Recently Relevant to Health Maintenance Results * POCT hemoglobin A1c (03/21/2024 10:43 AM REMANUFACTURING TECHNICIAN) Hemoglobin A1C, POC 7.9 4.0 - 5.6 % Blood 03/21/2024 10:4 3 AM REMANUFACTURING TECHNICIAN Bhavana Castorena NP POINT OF CARE TEST ORDERABLES Final Result * Thyroid Function [place] (03/16/2024 7:45 AM REMANUFACTURING TECHNICIAN) Pathologist [facility] TSH 1.180 0.450 - 4.500 uIU/mL [facility] - 01 Comment: No apparent thyroid disorder. Additional testing not indicated. In rare instances, Secondary Hypothyroidism as well as Subclinical Hypothyroidism have been reported in some patients with normal TSH values. Blood 03/16/2024 7:45 AM REMANUFACTURING TECHNICIAN 03/16/2024 Narrative [facility] - 03/17/2024 2:07 AM REMANUFACTURING TECHNICIAN Performed at: - [address] [id number] Lockstitch Lining Setter: Salvatore Chase PhD, Phone: [phone] Denise Regalado MD LAB BLOOD ORDERABLES F inal Result [facility] - 01 * CBC with auto differential (03/16/2024 7:45 AM REMANUFACTURING TECHNICIAN) Pathologist [facility] WBC 8.5 3.4 - 10.8 x10E3/uL [facility] - 01 RBC 4.66 3.77 - 5.28 x10E6/uL [facility] - 01 Hgb 13.7 11.1 - 15.9 g/dL [facility] - 01 Hct 42.6 34.0 - 46.6 % [facility] - 01 MCV 91 79 - 97 fL [facility] - 01 MCH 29.4 26.6 - 33.0 pg [facility] - 01 MCHC 32.2 31.5 - 35.7 g/dL [facility] - 01 Rdw 12.6 11.7 - 15.4 % [facility] - 01 Platelets 348 150 - 450 x10E3/uL [facility] - 01 Neutrophils pct 56 Not Estab. % [facility] - 01 Lymphs pct 32 Not Estab. % [facility] - 01 Monocytes pct 6 Not Estab. % [facility] - 01 Eosinophils pct 5 Not Estab. % [facility] - 01 Basophil pct 1 Not Estab. % [facility] - 01 Neutrophil abs 4.8 1.4 - 7.0 x10E3/uL [facility] - 01 Lymphs (Absolute) 2.7 0.7 - 3.1 x10E3/uL [facility] - 01 Monocyte abs 0.5 0.1 - 0.9 x10E3/uL [facility] - 01 Eosinophils, abs 0.4 0.0 - 0.4 x10E3/uL [facility] - 01 Basophils, abs 0.1 0.0 - 0.2 x10E3/uL [facility] - 01 Immature Granulocytes 0 Not Estab. % [facility] - 01 Immature Grans (Abs) 0.0 0.0 - 0.1 x10E3/uL [facility] - 01 Blood 03/16/2024 7:45 AM REMANUFACTURING TECHNICIAN 03/16/2024 Narrative [facility] - 03/17/2024 12:06 AM REMANUFACTURING TECHNICIAN Performed at: [address] [place] [id number] Lockstitch Lining Setter: Salvatore Chase PhD, Phone: [phone] Denise Regalado MD LAB BLOOD ORDERABLES F inal Result [facility] - * Hepatitis C antibody Blood (03/16/2024 7:45 AM REMANUFACTURING TECHNICIAN) [facility] [address] Hep C Ab Non Reactive Non Reactive [facility] - 01 Comment: HCV antibody alone does not differentiate between previously resolved infection and active infection. Equivocal and Reactive HCV antibody results should be followed up with an HCV RNA test to support the diagnosis of active HCV infection. Blood 03/16/2024 7:45 AM REMANUFACTURING TECHNICIAN 03/16/2024 Narrative [facility] - 03/17/2024 5:07 AM REMANUFACTURING TECHNICIAN Performed at: [address] [place] [id number] Lockstitch Lining Setter: Salvatore Chase PhD, Phone: [phone] Denise Regalado MD LAB MICROBIOLOGY - GEN ERAL ORDERABLES Final Result Performing Organization Address [facility] Co de Phone Number [facility] - * Albumin Creatinine Ratio, Urine (03/16/2024 7:45 AM REMANUFACTURING TECHNICIAN) [facility] [address] Creatinine ur 186.6 Not Estab. mg/dL [facility] - 01 Microalbumin, ur 22.6 Not Estab. ug/mL [facility] - 01 Microalbumin/cre at ratio 12 0 - 29 mg/g creat [facility] - 01 Comment: Normal: 0 - 29 Moderately increased: 30 - 300 Severely increased: >300 Urine 03/16/2024 7:45 AM REMANUFACTURING TECHNICIAN 03/16/2024 Narrative [facility] - 03/17/2024 5:07 AM REMANUFACTURING TECHNICIAN Performed at: [address] [place], [place] [id number] Lockstitch Lining Setter: Salvatore Chase PhD, Phone: [phone] Denise Regalado MD LAB URINE ORDERABLES F inal Result Performing Organization Address [facility] de Phone Number [facility] * Hepatitis B core antibody, IgM Blood (03/16/2024 7:45 AM REMANUFACTURING TECHNICIAN) [facility] [address] Hep B core IgM Negative Negative [facility] - Blood 03/16/2024 7:45 AM REMANUFACTURING TECHNICIAN 03/16/2024 Narrative [facility] - 03/17/2024 5:07 AM REMANUFACTURING TECHNICIAN Performed at: [address] [id number] Lockstitch Lining Setter: Salvatore Chase PhD, Phone: [phone] Denise Regalado MD LAB MICROBIOLOGY - GEN ERAL ORDERABLES Final Result Performing Organization Address [facility] de Phone Number [facility] * Hepatitis B surface antibody (immune status) Blood (03/16/2024 7:45 AM REMANUFACTURING TECHNICIAN) [facility] [address] HBsAb (immune status) Non Reactive [facility] - 01 Comment: Non Reactive: Not immune to HBV infection. Equivocal: Unable to determine if anti-HBs is present at levels consistent with immunity. Reactive: Anti-HBs concentration detected at greater than 10 mIU/mL. Individual is considered to be immune to infection with HBV. Blood 03/16/2024 7:45 AM REMANUFACTURING TECHNICIAN 03/16/2024 Narrative [facility] - 03/17/2024 5:07 AM REMANUFACTURING TECHNICIAN Performed at: [address] [id number] Lockstitch Lining Setter: Salvatore Chase PhD, Phone: [phone] Denise Regalado MD LAB MICROBIOLOGY - GEN ERAL ORDERABLES Final Result Performing Organization Address City/[facility] Co de Phone Number [facility] - * Hepatitis B Surface Antigen Blood (03/16/2024 7:45 AM REMANUFACTURING TECHNICIAN) HepBsAg Negative Negative [facility] - 01 Blood 03/16/2024 7:45 AM REMANUFACTURING TECHNICIAN 03/16/2024 Narrative [facility] - 03/17/2024 5:07 AM REMANUFACTURING TECHNICIAN Performed at: [address] [id number] Lockstitch Lining Setter: Salvatore Chase PhD, Phone: [phone] Denise Regalado MD LAB MICROBIOLOGY - GEN ERAL ORDERABLES Final Result Performing Organization Address City/[facility]/ZIP Co de Phone Number [facility] - * Lipid panel (03/16/2024 7:45 AM REMANUFACTURING TECHNICIAN) Cholesterol 135 100 - 199 mg/dL [facility] - 01 Triglycerides 99 0 - 149 mg/dL [facility] - 01 HDL Cholesterol 41 >39 mg/dL [facility] - 01 VLDL 19 5 - 40 mg/dL [facility] - 01 LDL, calculated 75 0 - 99 mg/dL [facility] - 01 Blood 03/16/2024 7:45 AM REMANUFACTURING TECHNICIAN 03/16/2024 Narrative [facility] - 03/17/2024 1:06 AM REMANUFACTURING TECHNICIAN Performed at: - [facility] [address] [id number] Lockstitch Lining Setter: Salvatore Chase PhD, Phone: [phone] Denise Regalado MD LAB BLOOD ORDERABLES F inal Result [facility] - 01 * (ABNORMAL) Comprehensive metabolic panel (03/16/2024 7:45 AM REMANUFACTURING TECHNICIAN) Pathologist [facility] Glucose 183(H) 70 - 99 mg/dL [facility] - 01 BUN 14 6 - 24 mg/dL [facility] - 01 Creatinine, Serum 0.98 0.57 - 1.00 mg/dL [facility] - 01 eGFR 67 >59 mL/min/1.7 3 [facility] - 01 BUN/creat ratio 14 9 - 23 [facility] - 01 Sodium 140 134 - 144 mmol/L [facility] - 01 Potassium, sr 4.9 3.5 - 5.2 mmol/L [facility] - 01 Chloride 102 96 - 106 mmol/L [facility] - 01 CO2 26 20 - 29 mmol/L [facility] - 01 Calcium 9.6 8.7 - 10.2 mg/dL [facility] - 01 Protein, sr 7.3 6.0 - 8.5 g/dL [facility] - 01 Albumin 4.3 3.8 - 4.9 g/dL [facility] - 01 Globulin, Total 3.0 1.5 - 4.5 g/dL [facility] - 01 Bilirubin, Total 0.6 0.0 - 1.2 mg/dL [facility] - 01 Alk phos 77 44 - 121 IU/L [facility] - 01 AST 31 0 - 40 IU/L [facility] - 01 ALT 26 0 - 32 IU/L [facility] - 01 Blood 03/16/2024 7:45 AM REMANUFACTURING TECHNICIAN 03/16/2024 Narrative [facility] - 03/17/2024 1:06 AM REMANUFACTURING TECHNICIAN Performed at: - [facility] [address] [id number] Lockstitch Lining Setter: Salvatore Chase PhD, Phone: [phone] Denise Regalado MD LAB BLOOD ORDERABLES F inal Result [facility] - 01 * Screening Mammogram Bilateral W Serafin (02/09/2023 4:24 PM REMANUFACTURING TECHNICIAN) Anatomical Region Laterality Modality Breast Bilateral Mammography Impressions 02/09/2023 4:33 PM REMANUFACTURING TECHNICIAN BI-RADS ATLAS category (overall): 1 - Negative There is no mammographic evidence of malignancy. A 1 year screening mammogram is recommended. The patient has been or will be contacted. We recommend annual screening mammography for women at average risk of breast cancer beginning at age 40, based on guidelines of the [employer] (ACR Practice Parameter for the Performance of Screening and Diagnostic Mammography) and [place] [employer]. For women with and elevated risk of breast cancer, please refer to the ACR Practice Parameter for specific screening recommendations. The patient will be entered into a reminder system with a target due date of 1 year for her next screening exam. Narrative 02/09/2023 4:33 PM REMANUFACTURING TECHNICIAN Screening Mammogram Bilateral W Serafin: 02/09/23 The study was acquired using full field digital technology and interpreted from soft copy. 2D digital mammographic views, as well as 3D digital tomosynthesis were performed in the CC and MLO projections. CLINICAL: Screening mammogram, encounter for. No relevant medical history has been documented for this patient. No known family history of breast cancer. COMPARISONS: 12/29/2015 Screening Mammogram Bilateral W Serafin 03/16/2013 Screening Mammogram 2D Bilateral BREAST TISSUE: The breasts have scattered areas of fibroglandular density. FINDINGS: No suspicious masses, suspicious calcifications, or other suspicious findings are seen within either breast. There has been no suspicious change. Self Screening Mammogram IMG MAMMO PROCEDURES Fi nal Result from Last 3 Months or Most Recently Relevant to Health Maintenance Insurance AETNA SIG [id number] AETNA SIG [id number] Care Teams Chief Supply Chain Officer Relationship Specialty Start Date End Date Bhavana Castorena NP [address] [address] PCP - General Family Medicine 03/21/24
--- OUTSIDE RECORDS SUMMARY | 2024-05-29 02:08 | XMS_ITS | Clinical Summary ---
Author Organization [facility] Address [address] [place] [address] Phone Care Team Providers Care Welfare Centre Manager Name Role Phone Maykel Hardwick MD Primary Care Provider Allergies Active Allergy Reactions Criticality Noted Date Comments Oxycodone-Acetaminophen Anaphylaxis 01/09/2018 Medications milnacipran (SAVELLA) 50 mg tablet Take 50 mg by mouth 2 times daily. Active pregabalin (LYRICA) 50 mg Capsule Take 50 mg by mouth every 12 hours. Active metoprolol tartrate (LOPRESSOR) 50 mg tablet Take 50 mg by mouth daily. Active BUPROPION HCL ORAL Take by mouth. Active rosuvastatin (CRESTOR) 20 mg tablet Take 20 mg by mouth daily at bedtime. Active Social History Tobacco Use Types Packs/Day Years Used Date Smoking Tobacco: Former Smokeless Tobacco: Never Alcohol Use Standard Drinks/Week Comments No 0 (1 standard drink = 0.6 oz pur e alcohol) Comments Unknown Sex and Gender Information Value Date Recorded Sex Assigned at Not on file Legal Sex Female 4:35 AM HEALTH AND FITNESS INSTRUCTOR Gender Identity Not on file Sexual Orientation Not on file Last Filed Vital Signs Vital Sign Reading Time Taken Comments Blood Pressure 99/60 01/09/2018 5:03 PM HEALTH AND FITNESS INSTRUCTOR Pulse 75 01/09/2018 5:03 PM HEALTH AND FITNESS INSTRUCTOR Temperature 36.6 C (97.9 F) 01/09/2018 3:04 PM HEALTH AND FITNESS INSTRUCTOR Respiratory Rate 21 01/09/2018 5:03 PM HEALTH AND FITNESS INSTRUCTOR Oxygen Saturation 99% 01/09/2018 5:03 PM HEALTH AND FITNESS INSTRUCTOR Inhaled Oxygen Concentration - - Weight 72.6 kg (160 lb) 01/09/2018 3:04 PM HEALTH AND FITNESS INSTRUCTOR Height 172.7 cm (5' 8 ) 01/09/2018 3:04 PM HEALTH AND FITNESS INSTRUCTOR Body Mass Index 24.33 01/09/2018 3:04 PM HEALTH AND FITNESS INSTRUCTOR Plan of Treatment Health Maintenance Due Date Last Done Comments DTAP/TDAP/TD VACCINES (1 - Tdap) 1985 HEPATITIS B VACCINES (1 of 3 - 19+ 3-dose series) 03/1985 HPV/Cotest (21-29) 06/30/1987 PAP SMEAR 06/30/1987 CERVICAL CANCER SCREENING 1996 HPV/Cotest (30-65) 1996 PAP SMEAR 1996 BREAST CANCER SCREENING 2006 COLORECTAL SCREENING 06/30/2011 Colorectal Cancer Screening 06/30/2011 FIT-DNA Q 3 years 06/30/2011 FIT/FOBT Q 1 year 06/30/2011 Flex Sig/CT Colonography Q 5 years 06/30/2011 ZOSTER VACCINE (1 of 2) 2016 INFLUENZA VACCINE (#1) 2023 Insurance [id number] ACCESS CHOICE Care Teams Welfare Centre Manager Relationship Specialty Start Date End Date Maykel Hardwick MD PCP - General Family Practice 01/09/18
--- OUTSIDE RECORDS SUMMARY | 2024-05-29 02:09 | XMS_ITS | Encounter Summary ---
Author Organization [facility] Facility Care Team Providers Care Academic Physician Name Role Phone Maykel Hardwick MD Primary Care Provi ritika Denise Regalado MD Primary Care Provider Bhavana Castorena NP Primary Care Provider [phone] Encounter Details Date Type Department Care Team (Latest Contact Info) Description 07/21/2017 Orders Only [facility] CLINCONV ProviderTom MD [address] [place] [address] Social History Tobacco Use Types Packs/Day Years Used Date Smoking Tobacco: Never Assessed Comments Unknown Sex and Gender Information Value Date Recorded Sex Assigned at Not on file Legal Sex Female 8:40 AM MARKETING CONSULTANT Gender Identity Not on file Sexual Orientation Not on file documented as of this encounter Plan of Treatment Not on file documented as of this encounter Procedures Procedure Name Priority Date/Time Associated Diagnosis Comments CARDIOLOGY REPORT 07/21/2017 12: 00 AM CDT documented in this encounter Results * CARDIOLOGY REPORT (07/21/2017 12:00 AM CDT) Anatomical Region Laterality Modality Other Narrative 07/21/2017 12:00 AM CDT Ordered by an unspecified provider. Historical Provider [facility] Final Result documented in this encounter Visit Diagnoses Not on filedocumented in this encounter Additional Health Concerns Infection Onset Date Last Indicated Resolved Time COVID: Suspected 12/22/2020 12/22/2020 12/22/2020 1:01 PM CDT Exposure, COVID-19 Comment:Added automatically based on COVID19 lab answers indicating exposure risk 07/14/2022 07/14/2022 07/24/2022 3:05 AM C DT COVID: Suspected 07/14/2022 07/14/2022 07/15/2022 2:27 AM CDT documented as of this encounter Care Teams Academic Physician Relationship Specialty Start Date End Date Maykel Hardwick MD [address] [facility] [address] [place] [address] PCP - General Family Medicine 09/13/18 09/05/22 Denise Regalado MD [address] [facility] [address] [place] [address] PCP - General Family Practice 09/06/22 03/20/24 Bhavana Castorena NP [address] [facility] [address] [place] [address] PCP - General Family Medicine 03/21/24 documented as of this encounter
--- OUTSIDE RECORDS SUMMARY | 2024-05-29 02:09 | XMS_ITS | Encounter Summary ---
Author Organization [facility] Facility Care Team Providers Care Outside Sales Name Role Phone Maykel Hardwick MD Primary Care Provi ritika Denise Regalado MD Primary Care Provider Bhavana Castorena NP Primary Care Provider [phone] Encounter Details Date Type Department Care Team (Latest Contact Info) Description 04/30/2015 Orders Only [facility] CLINCONV ProviderTom MD [address] [place] [address] Social History Tobacco Use Types Packs/Day Years Used Date Smoking Tobacco: Never Assessed Comments Unknown Sex and Gender Information Value Date Recorded Sex Assigned at Not on file Legal Sex Female 8:40 AM CLAIM SPECIALIST Gender Identity Not on file Sexual Orientation Not on file documented as of this encounter Plan of Treatment Not on file documented as of this encounter Procedures Procedure Name Priority Date/Time Associated Diagnosis Comments CARDIOLOGY REPORT 05/04/2015 12: 00 AM CLAIM SPECIALIST documented in this encounter Results * CARDIOLOGY REPORT (05/04/2015 12:00 AM CLAIM SPECIALIST) Anatomical Region Laterality Modality Other Narrative 05/04/2015 12:00 AM CLAIM SPECIALIST Ordered by an unspecified provider. Historical Provider [...] documented as of this encounter Care Teams Outside Sales Relationship Specialty Start Date End Date Maykel Hardwick MD [address] [facility] [address] [place] [address] PCP - General Family Medicine 09/13/18 09/05/22 Denise Regalado MD [address] [facility] [address] [place] [address] PCP - General Family Practice 09/06/22 03/20/24 Bhavana Castorena NP [address] [facility] [address] [place] [address] PCP - General Family Medicine 03/21/24 documented as of this encounter
--- OUTSIDE RECORDS SUMMARY | 2024-05-29 02:09 | XMS_ITS | Clinical Summary ---
Author Organization [facility] Address [address] [place] [address] Care Team Providers Care Shoe Stock Associate Name Role Phone Maykel Hardwick MD Primary Care Provi [facility] Source Comments [facility],non-owned Affiliates and Associated Physician Practices is amultiple site organization consisting of ambulatory clinics and hospital sitesin [place], [place], [place] and [place]. This disclosure is being madepursuant to the Care Everywhere program and may not contain all information available regarding this patient. Last updated 17.[facility] Allergies Active Allergy Reactions Criticality Noted Date Comments Aspirin GI Discomfort Low 08/01/2016 Prednisone 08/01/2016 Medications * Be aware that medications may not be up to date on this document. Alwaysverify current medications with the patient. Medication Sig Dispensed Refills Start Date End Date Status pantoprazole EC (PROTONIX) 20 MG tablet Take 20 mg by mouth once daily Active metoprolol tartrate (LOPRESSOR) 50 MG tablet Take 50 mg by mouth 2 times daily Active Pregabalin (LYRICA PO) Take 150 mg by mouth 2 times daily Active milnacipran (SAVELLA) 50 MG tablet Take 50 mg by mouth 2 times daily Active acetaminophen (TYLENOL) 325 MG tablet Take 325 mg by mouth every 4 hours as needed for Fever or Pain Maximum allowable Acetaminophen amount = 4 Grams (4000 mg) / 24 hours. Active rosuvastatin (CRESTOR) 10 MG tablet Take 20 mg by mouth at bedtime Active multivitamin daily (THERAGRAN) tablet Take 1 Tab by mouth 2 times daily as needed with food Active Cholecalciferol (VITAMIN D3) 5000 UNITS TBDP Take 5,000 Units by mouth Active calcium carbonate (CALCIUM 600) 600 MG tablet Take 1 Tab by mouth 2 times daily with morning and evening meal Active cyanocobalamin (VITAMIN B-12) 100 MCG tablet Take 100 mcg by mouth once daily Active nitroGLYCERIN (NITROSTAT) 0.4 MG tablet Dissolve 1 Tab under the tongue every 5 minutes as needed for Angina (Chest pain) Call for help after the second dose. 30 Tab 08/01/2016 Active buPROPion XL 24hr (WELLBUTRIN-XL) 300 MG tablet Take 300 mg by mouth every morning Active Active Problems Problem Noted Date Diagnosed Date Chest pain 08/01/2016 Diabetes mellitus type II, c ontrolled, with no complications 08/01/2016 Hyperlipidemia 08/01/2016 Fibromyalgia 08/01/2016 GERD (gastroesophageal reflux disease) 7 Family History Medical History Relation Name Comments CVA Maternal Grandfather Cancer - Stomach Mother CAD (Coronary Artery Disease) Paternal Grandmother Relation Name Status Comments Maternal Grandfather Mother Paternal Grandmother Social History Tobacco Use Types Packs/Day Years Used Date Smoking Tobacco: Never Alcohol Use Standard Drinks/Week Comments No 0 (1 standard drink = 0.6 oz pur e alcohol) Sex and Gender Information Value Date Recorded Sex Assigned at Not on file Gender Identity Not on file Sexual Orientation Not on file Last Filed Vital Signs Vital Sign Reading Time Taken Comments Blood Pressure 102/60 08/01/2016 8:35 AM CDT Pulse 69 08/01/2016 8:35 AM CDT Temperature 37.1 C (98.7 F) 08/01/2016 8:35 AM CDT Respiratory Rate 16 08/01/2016 8:35 AM CDT Oxygen Saturation 97% 08/01/2016 8:35 AM CDT Inhaled Oxygen Concentration - - Weight 75.8 kg (167 lb) 08/01/2016 3:05 AM CDT Height 152.4 cm (5') 08/01/2016 3:05 AM CDT Body Mass Index 32.61 08/01/2016 3:05 AM CDT Plan of Treatment Health Maintenance Due Date Last Done Comments COLOGUARD (AGES 45-75) - COL ON CA SCREENING 1966 COLON MONITORING 1966 COLONOSCOPY - COLON CA SCREENING 1966 CT COLONOGRAPHY - COLON CA SCREENING 1966 Colorectal Cancer Screening 1966 FIT - COLON CA SCREENING 1966 FLEX SIG - COLON CA SCREENING 1966 MAMMOGRAM 1966 PAP SMEAR 1966 HIV SCREENING 1981 HEPATITIS C SCREENING 06/24/1984 DTAP/TDAP/TD VACCINES (1 - Tdap) 1985 HEPATITIS B VACCINE (1 of 3 - 19+ 3-dose series) 1985 PNEUMOCOCCAL VACCINE (1 of 2 - PCV) 1985 PNEUMOCOCCAL VACCINE 50+ (1 of 1 - PCV) 2016 ZOSTER VACCINE (1 of 2) 2016 COVID-19 VACCINE (1 - 2023-2 5 season) 2023 INFLUENZA VACCINE (#1) 2023 DEPRESSION SCREENING 02/29/2024 HIB VACCINE Aged Out No longer eligi ble based on patient's age to complete this topic HPV VACCINE Aged Out No longer eligi ble based on patient's age to complete this topic MENINGOCOCCAL (Group B) VACC INE SHARED DECISION-MAKING Aged Out No longer eligibl e based on patient's age to complete this topic MENINGOCOCCAL GROUPS A/C/Y/W VACCINE Aged Out No longer eligible b ased on patient's age to complete this topic Advance Directives * Full Code (Latest Code Status on File) Date Activated Date Inactivated Comments 08/01/2016 2:39 AM 08/01/2016 6:49 PM Care Teams Shoe Stock Associate Relationship Specialty Start Date End Date Maykel Hardwick MD PCP - General Family Medicine 08/01/16
--- OUTSIDE RECORDS SUMMARY | 2024-05-29 02:09 | XMS_ITS | Encounter Summary ---
Author Organization [facility] Facility Care Team Providers Care Quality Auditor Name Role Phone Maykel Hardwick MD Primary Care Provi ritika Denise Regalado MD Primary Care Provider Bhavana Castorena NP Primary Care Provider [phone] Encounter Details Date Type Department Care Team (Latest Contact Info) Description 07/19/2017 Orders Only [facility] CLINCONV ProviderTom MD [address] [place] [address] Social History Tobacco Use Types Packs/Day Years Used Date Smoking Tobacco: Never Assessed Comments Unknown Sex and Gender Information Value Date Recorded Sex Assigned at Not on file Legal Sex Female 8:40 AM MANAGEMENT RECRUITER Gender Identity Not on file Sexual Orientation Not on file documented as of this encounter Plan of Treatment Not on file documented as of this encounter Procedures Procedure Name Priority Date/Time Associated Diagnosis Comments SCAN - LABS 07/19/2017 12:00 AM CDT CARDIOLOGY REPORT 07/19/2017 12: 00 AM CDT documented in this encounter Results * SCAN - LABS (07/19/2017 12:00 AM CDT) Narrative 07/19/2017 12:00 AM CDT Ordered by an unspecified provider. Historical Provider Final Res ult * CARDIOLOGY REPORT (07/19/2017 12:00 AM CDT) Anatomical Region Laterality Modality Other Narrative 07/19/2017 12:00 AM CDT Ordered by an unspecified provider. us Historical Provider [facility] WARREN [...] documented as of this encounter Care Teams Quality Auditor Relationship Specialty Start Date End Date Maykel Hardwick MD [address] [place] [address] PCP - General Family Medicine 09/13/18 09/05/22 Denise Regalado MD [address] [place] [address] PCP - General Family Practice 09/06/22 03/20/24 Bhavana Castorena NP [address] [place] [address] PCP - General Family Medicine 03/21/24 documented as of this encounter
--- OUTSIDE RECORDS SUMMARY | 2024-05-29 02:09 | XMS_ITS | Encounter Summary ---
Author Organization [facility] Facility Care Team Providers Care Roll Off Driver Name Role Phone Maykel Hardwick MD Primary Care Provi ritika Denise Regalado MD Primary Care Provider Bhavana Castorena NP Primary Care Provider [phone] Encounter Details Date Type Department Care Team (Latest Contact Info) Description 09/08/2017 Orders Only [facility]G CLINCONV ProviderTom MD [address] [place] [address] Social History Tobacco Use Types Packs/Day Years Used Date Smoking Tobacco: Never Assessed Comments Unknown Sex and Gender Information Value Date Recorded Sex Assigned at Not on file Legal Sex Female 8:40 AM SOCIAL WORK PROFESSOR Gender Identity Not on file Sexual Orientation Not on file documented as of this encounter Plan of Treatment Not on file documented as of this encounter Procedures Procedure Name Priority Date/Time Associated Diagnosis Comments PROCEDURE - RESULT 09/08/2017 12 :00 AM CDT documented in this encounter Results * PROCEDURE - RESULT (09/08/2017 12:00 AM CDT) Narrative 09/08/2017 12:00 AM CDT Ordered by an unspecified provider. us Historical Provider Final Res ult documented in this encounter Visit Diagnoses Not [...] documented as of this encounter Care Teams Roll Off Driver Relationship Specialty Start Date End Date Maykel Hardwick MD [address] [facility] [address] [place] [address] PCP - General Family Medicine 09/13/18 09/05/22 Denise Regalado MD [address] [facility] [address] [place] [address] PCP - General Family Practice 09/06/22 03/20/24 Bhavana Castorena NP [address] [facility] [address] [place] [address] PCP - General Family Medicine 03/21/24 documented as of this encounter
--- OUTSIDE RECORDS SUMMARY | 2024-05-29 02:09 | XMS_ITS | Clinical Summary ---
Author Organization [facility] Address [address] [place] [address] Care Team Providers Care Diamond Sawer Name Role Phone Bhavana Castorena NP Primary Care Provider [phone] Allergies Active Allergy Reactions Criticality Noted Date Comments Aspirin Nausea only Low 06/02/2018 Glipizide Rash Medium 05/31/2023 Hydrocodone Shortness of breath High 09/08/2017 Itching Metformin Diarrhea Low 10/21/2022 Did not tolerate metformin ER 500 mg. Oxycodone-Acetaminophe n Anaphylaxis High 01/09/2018 Prednisone Shortness of breath High 06/02/2018 [place] Other (See comments) Low 09/08/2017 RESPIRATORY DISTRESS, [...] hyperglycemia, without long-term current use of insulin ([facility]) Use 1 strip daily to test blood [...] hyperglycemia, without long-term current use of insulin ([facility]) Use 1 strip 3x to check blood sugar before meals 200 each 2 4 01/11/20 25 Active lancets (Six ApartTouch Delica Plus Lancet) 30 gauge miscIndications:Ty pe 2 diabetes mellitus with hyperglycemia, without long-term current use of insulin ([facility]) Test blood glucose level three times daily [...] 06/17/2016 Assessment & Plan (03/21/2024 11:47 AM EMERGENCY MEDICAL TECH): She has difficulty taking rybelsus due to [...] recurrence. Assessment & Plan (03/21/2024 10:50 AM EMERGENCY MEDICAL TECH): Hx SVT, has had an ablation. Currently [...] 6 Assessment & Plan (03/21/2024 10:51 AM EMERGENCY MEDICAL TECH): Stable on current medication. Continue pantoprazole as [...] 09/03/2015 Assessment & Plan (03/21/2024 10:52 AM EMERGENCY MEDICAL TECH): Currently on oral B12 Vitamin D deficiency 09/03/2015 Assessment & Plan (03/21/2024 11:48 AM EMERGENCY MEDICAL TECH): Continues on oral vitamin d Mixed hyperlipidemia 09/03/2015 Assessment & Plan (03/21/2024 10:52 AM EMERGENCY MEDICAL TECH): Lipid abnormalities are stable, reviewed previous lipid levels in [facility]. Continue statin therapy. Crestor (rosuvastatin) Order [...] 05/12/2015 Assessment & Plan (03/21/2024 10:49 AM EMERGENCY MEDICAL TECH): Start to wean some medication per patient [...] Snoring 09/03/2015 08/23/2022 Chronic fatigue 06/09/2015 08/23/2022 Encounters Date Type Department Care Team Description 05/02/2024 2:15 PM EMERGENCY MEDICAL TECH Office Visit [facility] Care at [address] [address] Kita Logan PA Diarrhea, unspecified type (Primary Dx) 03/21/2024 10:30 AM EMERGENCY MEDICAL TECH Office Visit [facility] Primary Care at [address] [address] Bhavana Castorena NP Type 2 diabetes mellitus without complication, without long-term current use of insulin (HCC) (Primary Dx); Recurrent major depressive disorder, in partial remission; Fibromyalgia; History of supraventricular tachycardia; Gastroesophageal reflux disease without esophagitis; Vitamin B12 deficiency; Vitamin D deficiency; Mixed hyperlipidemia; Visit for screening mammogram; Type 2 diabetes mellitus with hyperglycemia, without long-term current use of insulin (HCC) 03/21/2024 Telephone [facility] Primary Care at [address] [address] Bhavana Castorena NP PA for Ozempic 03/15/2024 Documentation [facility] Care [address] [place] [id number] Ira Yo MD 03/14/2024 Orders Only [address] [address] Tierra Orlando NP Fibromyalgia from Last 3 Months Immunizations Immunization Administration Dates Next Due Influenza, Unspecified 02/28/2023(Deferred: Nadia ent Refused) TD Preservative Free 09/03/2007 Tdap 09/03/2007 Surgical History Surgery Date Site/Laterality Comments HYSTERECTOMY TUBAL LIGATION ABLATION SVT Medical History Medical History Date Comments Hyperlipidemia Sleep apnea Supraventricular tachycardia Diabetes mellitus (HCC) Family History Medical History Relation Name Comments Coronary artery disease Father Diabetes Father Heart disease Maternal Grandmother gastric cancer Mother Hx of h/ pylo ri MEN1 Neg Hx Thyroid cancer Neg Hx Relation Name Status Comments Father Maternal Grandmother Mother Social History Tobacco Use Types Packs/Day Years [...] on file Legal Sex Female 8:40 AM EMERGENCY MEDICAL TECH Gender Identity Not on file Sexual Orientation Not on file Obstetrics History Para Term AB IAB SAB Ectopic Multiple Livin g Live Births 3 3 3 Date Outcome GA Total Labor Labor/2nd/3rd Weight Sex Type Anes PTL Elaine A1 A5 Name Clin Term Term Term Last Filed Vital Signs Vital Sign Reading Time Taken Comments Blood Pressure 96/63 05/02/2024 2:10 PM EMERGENCY MEDICAL TECH Pulse 89 05/02/2024 2:10 PM EMERGENCY MEDICAL TECH Temperature 36.7 C (98 F) 05/02/2024 2:10 PM EMERGENCY MEDICAL TECH Respiratory Rate 16 05/02/2024 2:10 PM EMERGENCY MEDICAL TECH Oxygen Saturation 98% 05/02/2024 2:10 PM EMERGENCY MEDICAL TECH Inhaled Oxygen Concentration - - Weight 77.6 kg (171 lb) 05/02/2024 2:10 PM EMERGENCY MEDICAL TECH Height 149.9 cm (4' 11 ) 03/21/2024 10:32 AM EMERGENCY MEDICAL TECH Body Mass Index 34.54 03/21/2024 10:32 AM EMERGENCY MEDICAL TECH Plan of Treatment Health Maintenance Due Date Last Done Comments Colon Cancer Screening-Colonoscopy 1966 Dilated Eye Exam 1966 Pneumococcal vaccine <65 (1 of 2 - PCV) 1985 Zoster Vaccine (1 of 2) 2016 DTaP/Tdap/Td Vaccine (2 - Td or Tdap) 09/02/2017 09/03/2007, 09/03/2007 Regular Well Visit/Exam 18-64 04/29/2023 04/28/2022 Breast Cancer Screening-Mammogram 02/10/2024 02/09/2023, 12/29/2015, 03/16/2013 Depression Screening 09/12/2024 09/13/2023, 08/23/2022, 10/25/2019 Foot Exam 09/12/2024 09/13/2023, 08/28, 08/23/2022 Hemoglobin A1C 09/18/2024 03/21/2024, 08/28, 05/26/2023, Additional history exists Influenza Vaccine (Season Ended) 2024 Albumin Creatinine Ratio, Urine 03/16/2025 Lipid Panel 03/16/2025 03/16/2024, 08/0 06/2022, 04/28/2022, Additional history exists eGFR 03/16/2025 03/16/2024, 08/0 06/2022, 06/09/2022, Additional history exists Hepatitis B Screening Completed 03/16/2024 Hepatitis C Screening Completed 03/16/2024 Procedures Procedure Name Priority Date/Time Associated Diagnosis Comments POCT HEMOGLOBIN A1C Routine 03/21/2024 10:43 AM EMERGENCY MEDICAL TECH Type 2 diabetes mellitus with hyperglycemia, without long-term current use of insulin (HCC) THYROID FUNCTION CASCADE Routine 03/16/2024 7:45 AM EMERGENCY MEDICAL TECH Type 2 diabetes mellitus without complication, without long-term current use of insulin (HCC) Sinus tachycardia ALBUMIN CREATININE RATIO, URINE Routine 03/16/2024 7:45 AM EMERGENCY MEDICAL TECH Type 2 diabetes mellitus without complication, without long-term current use of insulin (HCC) CBC WITH AUTO DIFFERENTIAL Routine 03/16/2024 7:45 AM EMERGENCY MEDICAL TECH Type 2 diabetes mellitus without complication, without long-term current use of insulin (HCC) LIPID PANEL Routine 03/16/2024 7:45 AM EMERGENCY MEDICAL TECH Type 2 diabetes mellitus without complication, without long-term current use of insulin (HCC) Mixed hyperlipidemia COMPREHENSIVE METABOLIC PANEL Routine 03/16/2024 7:45 AM EMERGENCY MEDICAL TECH Type 2 diabetes mellitus without complication, without long-term current use of insulin (HCC) Mixed hyperlipidemia HEPATITIS B CORE IGM Routine 03/16/2024 7:45 AM EMERGENCY MEDICAL TECH Need for hepatitis B screening test HEPATITIS B SURFACE ANTIBODY (IMMUNE STATUS) Routine 03/16/2024 7:45 AM EMERGENCY MEDICAL TECH Need for hepatitis B screening test HEPATITIS B SURFACE ANTIGEN Routine 03/16/2024 7:45 AM EMERGENCY MEDICAL TECH Need for hepatitis B screening test HEPATITIS C ANTIBODY Routine 03/16/2024 7:45 AM EMERGENCY MEDICAL TECH Encounter for hepatitis C screening test for low risk patient SCREENING MAMMOGRAM BILATERAL W SERAFIN Schedule Routine, Read Routine (OP Routine) 02/09/2023 4:24 PM EMERGENCY MEDICAL TECH Screening mammogram, encounter for from Last 3 Months or Most Recently Relevant to Health Maintenance Results * POCT hemoglobin A1c (03/21/2024 10:43 AM EMERGENCY MEDICAL TECH) Hemoglobin A1C, POC 7.9 4.0 - 5.6 % Blood 03/21/2024 10:4 3 AM EMERGENCY MEDICAL TECH Bhavana Castorena NP POINT OF CARE TEST ORDERABLES Final Result * Thyroid Function [place] (03/16/2024 7:45 AM EMERGENCY MEDICAL TECH) Pathologist [facility] TSH 1.180 0.450 - 4.500 uIU/mL [facility] - 01 Comment: No apparent thyroid disorder. Additional testing not indicated. In rare instances, Secondary Hypothyroidism as well as Subclinical Hypothyroidism have been reported in some patients with normal TSH values. Blood 03/16/2024 7:45 AM EMERGENCY MEDICAL TECH 03/16/2024 Narrative [facility] - 03/17/2024 2:07 AM EMERGENCY MEDICAL TECH Performed at: - [address] [id number] Interlocking Installer: Salvatore Chase PhD, Phone: [phone] Denise Regalado MD LAB BLOOD ORDERABLES F inal Result [facility] - 01 * CBC with auto differential (03/16/2024 7:45 AM EMERGENCY MEDICAL TECH) Pathologist [facility] WBC 8.5 3.4 - 10.8 x10E3/uL [facility] [...] [facility] - 01 Blood 03/16/2024 7:45 AM EMERGENCY MEDICAL TECH 03/16/2024 Narrative [facility] - 03/17/2024 12:06 AM EMERGENCY MEDICAL TECH Performed at: [address] [place] [id number] Interlocking Installer: Salvatore Chase PhD, Phone: [phone] Denise Regalado MD LAB BLOOD ORDERABLES F inal Result Performing Organization Address [facility] Co de Phone Number [facility] - * Hepatitis C antibody Blood (03/16/2024 7:45 AM EMERGENCY MEDICAL TECH) [facility] Hep C Ab Non Reactive Non Reactive [facility] - 01 Comment: HCV antibody alone does not differentiate between previously resolved infection and active infection. Equivocal and Reactive HCV antibody results should be followed up with an HCV RNA test to support the diagnosis of active HCV infection. Blood 03/16/2024 7:45 AM EMERGENCY MEDICAL TECH 03/16/2024 Narrative [facility] - 03/17/2024 5:07 AM EMERGENCY MEDICAL TECH Performed at: [address] [place] [id number] Interlocking Installer: Salvatore Chase PhD, Phone: [phone] Denise Regalado MD LAB MICROBIOLOGY - GEN ERAL ORDERABLES Final Result Performing Organization Address [facility] Co de Phone Number [facility] * Albumin Creatinine Ratio, Urine (03/16/2024 7:45 AM EMERGENCY MEDICAL TECH) Pathologist [facility] Creatinine ur 186.6 Not Estab. mg/dL [facility] - 01 Microalbumin, ur 22.6 Not Estab. ug/mL [facility] - 01 Microalbumin/cre at ratio 12 0 - 29 mg/g creat [facility] - 01 Comment: Normal: 0 - 29 Moderately increased: 30 - 300 Severely increased: >300 Urine 03/16/2024 7:45 AM EMERGENCY MEDICAL TECH 03/16/2024 Narrative [facility] - 03/17/2024 5:07 AM EMERGENCY MEDICAL TECH Performed at: [address] [place] [address] [id number] Interlocking Installer: Salvatore Chase PhD, Phone: [phone] Denise Regalado MD LAB URINE ORDERABLES F inal Result Performing Organization Address [facility] Co de Phone Number [facility] - * Hepatitis B core antibody, IgM Blood (03/16/2024 7:45 AM EMERGENCY MEDICAL TECH) [facility] Hep B core IgM Negative Negative [facility] - Blood 03/16/2024 7:45 AM EMERGENCY MEDICAL TECH 03/16/2024 Narrative [facility] - 03/17/2024 5:07 AM EMERGENCY MEDICAL TECH Performed at: [address] [place] [address] [id number] Interlocking Installer: Salvatore Chase PhD, Phone: [phone] Denise Regalado MD LAB MICROBIOLOGY - GEN ERAL ORDERABLES Final Result Performing Organization Address City/[facility]/ZIP Co de Phone Number [facility] - * Hepatitis B surface antibody (immune status) Blood (03/16/2024 7:45 AM EMERGENCY MEDICAL TECH) [facility] HBsAb (immune status) Non Reactive [facility] - 01 Comment: Non Reactive: Not immune to HBV infection. Equivocal: Unable to determine if anti-HBs is present at levels consistent with immunity. Reactive: Anti-HBs concentration detected at greater than 10 mIU/mL. Individual is considered to be immune to infection with HBV. Blood 03/16/2024 7:45 AM EMERGENCY MEDICAL TECH 03/16/2024 Narrative [facility] - 03/17/2024 5:07 AM EMERGENCY MEDICAL TECH Performed at: [address] [id number] Interlocking Installer: Salvatore Chase PhD, Phone: [phone] Denise Regalado MD LAB MICROBIOLOGY - GEN ERAL ORDERABLES Final Result Performing Organization Address City/[facility]/ZIP Co de Phone Number [facility] - * Hepatitis B Surface Antigen Blood (03/16/2024 7:45 AM EMERGENCY MEDICAL TECH) HepBsAg Negative Negative [facility] - Blood 03/16/2024 7:45 AM EMERGENCY MEDICAL TECH 03/16/2024 Narrative [facility] - 03/17/2024 5:07 AM EMERGENCY MEDICAL TECH Performed at: [address] [id number] Interlocking Installer: Salvatore Chase PhD, Phone: [phone] us Denise Regalado MD LAB MICROBIOLOGY - GEN ERAL ORDERABLES Final Result Performing Organization Address [facility] Co de Phone Number [facility] - * Lipid panel (03/16/2024 7:45 AM EMERGENCY MEDICAL TECH) Cholesterol 135 100 - 199 mg/dL [facility] - 01 Triglycerides 99 0 - 149 mg/dL [facility] - 01 HDL Cholesterol 41 >39 mg/dL [facility] - 01 VLDL 19 5 - 40 mg/dL [facility] - 01 LDL, calculated 75 0 - 99 mg/dL [facility] - 01 Blood 03/16/2024 7:45 AM EMERGENCY MEDICAL TECH 03/16/2024 Narrative [facility] - 03/17/2024 1:06 AM EMERGENCY MEDICAL TECH Performed at: [address] [id number] Interlocking Installer: Salvatore Chase PhD, Phone: [phone] us Denise Regalado MD LAB BLOOD ORDERABLES F inal Result Performing Organization Address City/[facility]/ZIP Co de Phone Number [facility] - 01 * (ABNORMAL) Comprehensive metabolic panel (03/16/2024 7:45 AM EMERGENCY MEDICAL TECH) Pathologist [facility] Glucose 183(H) 70 - 99 mg/dL [facility] [...] [facility] - 01 Blood 03/16/2024 7:45 AM EMERGENCY MEDICAL TECH 03/16/2024 Narrative [facility] - 03/17/2024 1:06 AM EMERGENCY MEDICAL TECH Performed at: - [address] [id number] Interlocking Installer: Salvatore Chase PhD, Phone: [phone] us Denise Regalado MD LAB BLOOD ORDERABLES F inal Result Performing Organization Address City/[facility]/ZIP Co de Phone Number [facility] - 01 * Screening Mammogram Bilateral W Serafin (02/09/2023 4:24 PM EMERGENCY MEDICAL TECH) Anatomical Region Laterality Modality Breast Bilateral Mammography Impressions 02/09/2023 4:33 PM EMERGENCY MEDICAL TECH BI-RADS ATLAS category (overall): 1 - Negative There is no mammographic evidence of malignancy. A 1 year screening mammogram is recommended. The patient has been or will be contacted. We recommend annual screening mammography for women at average risk of breast cancer beginning at age 40, based on guidelines of the [employer] (ACR Practice Parameter for the Performance of Screening and Diagnostic Mammography) and [employer]. For women with and elevated risk of breast cancer, please refer to the ACR Practice Parameter for specific screening recommendations. The patient will be entered into a reminder system with a target due date of 1 year for her next screening exam. Narrative 02/09/2023 4:33 PM EMERGENCY MEDICAL TECH Screening Mammogram Bilateral W Serafin: 02/09/23 The [...] breast. There has been no suspicious change. us Self Screening Mammogram IMG MAMMO PROCEDURES Fi nal Result from Last 3 Months or Most Recently Relevant to Health Maintenance Insurance AETNA SIG [id number] AETNA SIG [id number] Care Teams Diamond Sawer Relationship Specialty Start Date End Date Bhavana Castorena NP [address] [address] PCP - General Family Medicine 03/21/24
--- OUTSIDE RECORDS SUMMARY | 2024-05-29 02:09 | XMS_ITS | Encounter Summary ---
Author Organization [facility] Facility Care Team Providers Care Hide Cleaner Name Role Phone Maykel Hardwick MD Primary Care Provi ritika Denise Regalado MD Primary Care Provider Bhavana Castorena NP Primary Care Provider [phone] Encounter Details Date Type Department Care Team (Latest Contact Info) Description 05/27/2016 Orders Only [facility] CLIN[facility] ProviderTom MD [address] [place] [id number] Social History Tobacco Use Types Packs/Day Years Used Date Smoking Tobacco: Never Assessed Comments Unknown Sex and Gender Information Value Date Recorded Sex Assigned at Not on file Legal Sex Female 8:40 AM TUBULAR RIVETER Gender Identity Not on file Sexual Orientation Not on file documented as of this encounter Plan of Treatment Not on file documented as of this encounter Procedures Procedure Name Priority Date/Time Associated Diagnosis Comments SCAN - LABS 06/09/2016 12:00 AM CDT CARDIOLOGY REPORT 06/09/2016 12: 00 AM CDT documented in this encounter Results * SCAN - LABS (06/09/2016 12:00 AM CDT) Narrative 06/09/2016 12:00 AM CDT Ordered by an unspecified provider. Historical Provider Final Res ult * CARDIOLOGY REPORT (06/09/2016 12:00 AM CDT) Anatomical Region Laterality Modality Other Narrative 06/09/2016 12:00 AM CDT Ordered by an unspecified [...] documented as of this encounter Care Teams Hide Cleaner Relationship Specialty Start Date End Date Maykel Hardwick MD [address] [place] [address] PCP - General Family Medicine 09/13/18 09/05/22 Denise Regalado MD [address] [place] [address] PCP - General Family Practice 09/06/22 03/20/24 Bhavana Castorena NP [address] [place] [address] PCP - General Family Medicine 03/21/24 documented as of this encounter
--- OUTSIDE RECORDS SUMMARY | 2024-05-29 02:09 | XMS_ITS | Encounter Summary ---
Author Organization [facility] Facility Care Team Providers Care Log Sorter Name Role Phone Maykel Hardwick MD Primary Care Provi ritika Denise Regalado MD Primary Care Provider Bhavana Castorena NP Primary Care Provider [phone] Encounter Details Date Type Department Care Team (Latest Contact Info) Description 07/20/2017 Orders Only [facility] CLINCONV ProviderTom MD [address] [place] [address] Social History Tobacco Use Types Packs/Day Years Used Date Smoking Tobacco: Never Assessed Comments Unknown Sex and Gender Information Value Date Recorded Sex Assigned at Not on file Legal Sex Female 8:40 AM FIELD TRAINING MANAGER Gender Identity Not on file Sexual Orientation Not on file documented as of this encounter Plan of Treatment Not on file documented as of this encounter Procedures Procedure Name Priority Date/Time Associated Diagnosis Comments SCAN - LABS 07/20/2017 12:00 AM CDT documented in this encounter Results * SCAN - LABS (07/20/2017 12:00 AM CDT) Narrative 07/20/2017 12:00 AM CDT Ordered by an unspecified provider. Historical Provider Final Res ult documented in [...] documented as of this encounter Care Teams Log Sorter Relationship Specialty Start Date End Date Maykel Hardwick MD [address] [facility] [address] [place] [address] PCP - General Family Medicine 09/13/18 09/05/22 Denise Regalado MD [address] [facility] [address] [place] [address] PCP - General Family Practice 09/06/22 03/20/24 Bhavana Castorena NP [address] [facility] [address] [place] [address] PCP - General Family Medicine 03/21/24 documented as of this encounter
--- OUTSIDE RECORDS SUMMARY | 2024-05-29 02:09 | XMS_ITS | Encounter Summary ---
Author Organization [facility] Facility Care Team Providers Care Filer And Sander Name Role Phone Maykel Hardwick MD Primary Care Provi ritika Denise Regalado MD Primary Care Provider Bhavana Castorena NP Primary Care Provider Encounter Details Date Type Department Care Team (Latest Contact Info) Description 09/04/2016 Orders Only [facility] CLINCONV ProviderTom MD [address] [place] [address] Social History Tobacco Use Types Packs/Day Years Used Date Smoking Tobacco: Never Assessed Comments Unknown Sex and Gender Information Value Date Recorded Sex Assigned at Not on file Legal Sex Female 8:40 AM SUPPORT TEACHER Gender Identity Not on file Sexual Orientation Not on file documented as of this encounter Plan of Treatment Not on file documented as of this encounter Procedures Procedure Name Priority Date/Time Associated Diagnosis Comments SCAN - LABS 09/09/2016 12:00 AM CDT documented in this encounter Results * SCAN - LABS (09/09/2016 12:00 AM CDT) Narrative 09/09/2016 12:00 AM CDT Ordered by an unspecified [...] documented as of this encounter Care Teams Filer And Sander Relationship Specialty Start Date End Date Maykel Hardwick MD [address] [facility] [address] [place] [address] PCP - General Family Medicine 09/13/18 09/05/22 Denise Regalado MD [address] [facility] [address] [place] [address] PCP - General Family Practice 09/06/22 03/20/24 Bhavana Castorena NP [address] [facility] [address] [place] [address] PCP - General Family Medicine 03/21/24 documented as of this encounter
--- OUTSIDE RECORDS SUMMARY | 2024-05-29 02:09 | XMS_ITS | Encounter Summary ---
Author Organization [facility] Facility Care Team Providers Care Line Up Machine Operator Name Role Phone Maykel Hardwick MD Primary Care Provi ritika Denise Regalado MD Primary Care Provider Bhavana Castorena NP Primary Care Provider [phone] Encounter Details Date Type Department Care Team (Latest Contact Info) Description 04/12/2016 Orders Only [facility] CLINCONV ProviderTom MD [address] [place] [address] Social History Tobacco Use Types Packs/Day Years Used Date Smoking Tobacco: Never Assessed Comments Unknown Sex and Gender Information Value Date Recorded Sex Assigned at Not on file Legal Sex Female 8:40 AM GROCERY DEPARTMENT MANAGER Gender Identity Not on file Sexual Orientation Not on file documented as of this encounter Plan of Treatment Not on file documented as of this encounter Procedures Procedure Name Priority Date/Time Associated Diagnosis Comments CARDIOLOGY REPORT 04/14/2016 12: 00 AM GROCERY DEPARTMENT MANAGER documented in this encounter Results * CARDIOLOGY REPORT (04/14/2016 12:00 AM GROCERY DEPARTMENT MANAGER) Anatomical Region Laterality Modality Other Narrative 04/14/2016 12:00 AM GROCERY DEPARTMENT MANAGER Ordered by an unspecified provider. Historical Provider [...] documented as of this encounter Care Teams Line Up Machine Operator Relationship Specialty Start Date End Date Maykel Hardwick MD [address] [facility] [address] [place] [address] PCP - General Family Medicine 09/13/18 09/05/22 Denise Regalado MD [address] [facility] [address] [place] [address] PCP - General Family Practice 09/06/22 03/20/24 Bhavana Castorena NP [address] [facility] [address] [place] [address] PCP - General Family Medicine 03/21/24 documented as of this encounter
--- OUTSIDE RECORDS SUMMARY | 2024-05-29 02:09 | XMS_ITS | Clinical Summary ---
Author Organization [facility] Address [address] [place] [address] Care Team Providers Care Senior Audit Manager Name Role Phone None, Provider Primary Care Provider Unavaila ble Social History Tobacco Use Types Packs/Day Years Used Date Smoking Tobacco: Never Assessed Comments Unknown Sex and Gender Information Value Date Recorded Sex Assigned at Not on file Legal Sex Female 7:15 PM CDT Gender Identity Not on file Sexual Orientation Not on file Plan of Treatment Health Maintenance Due Date Last Done Comments Cervical Cancer Screening Pa p Smear (Age 30 to 64) Every 3 Years 1966 Colorectal Cancer Screening Colonoscopy (10 Years) 1966 Annual Physical 1969 Hepatitis C 1984 Hepatitis B Vaccines (1 of 3 - 19+ 3-dose series) 1985 Cervical Cancer Screening Pa p with HPV Testing (Age 30 to 64) Every 5 Years 1996 Cervical Cancer Screening wi th HPV 1996 Mammogram Screening 2006 Zoster Vaccines (1 of 2) 2016 DTaP, Tdap and Td Vaccines ( 3 - Td or Tdap) 09/02/2017 09/03/2007, 09/03/2007 COVID-19 Vaccine (2023-2 5 season) 2023 Influenza Adult (#1) 2023 Meningococcal B Vaccine Aged Out No l onger eligible based on patient's age to complete this topic Meningococcal Vaccine Aged Out No tomas jesi eligible based on patient's age to complete this topic Pneumococcal Vaccine: Pediatrics (0 to 5 Years) and At-Risk Patients (6 to 64 Years) Aged Out No longer eligible b ased on patient's age to complete this topic RSV Immunizations Under 20 Months Aged Out No longer eligible b ased on patient's age to complete this topic Care Teams Senior Audit Manager Relationship Specialty Start Date End Date None, Provider, PCP - General UNKNOWN PHYSICIAN SPECIALTY 03/17/22
--- NOTE | 2024-05-29 02:14 | ECG_ITS ---
Test Date: 2024-05-29 02:28:31 Measurements Intervals [place] Rate: 80 P: 78 CO: 147 QRS: 22 QRSD: 89 T: 26 QT: 355 QTc: 411 Interpretive Statements SINUS RHYTHM NONSPECIFIC T-WAVE ABNORMALITY- INFERIOR LEADS BASELINE ARTIFACT- I, II, III, AVR, AVL, AVF BORDERLINE ECG No previous ECG available for comparison Electronically Signed On 05-29-2024 06:16:58 CDT by Josias Vigil D.O.
[2024-05-29 02:26] VITALS: BP 135/82; PULSE 83; RESP 15; TEMP 36.6; O2SAT 96
[2024-05-29 02:39] LABS: Basophils Absolute Auto 0.1 K/mm3 (0.0-0.1); Basophils Percent Auto 0.6 % (0.2-1.2); Eosinophils Absolute Auto 0.3 K/mm3 (0-0.3); Eosinophils Percent Auto 2.4 % (0-4.4); Hematocrit 41.9 % (37.0-47.0); Hemoglobin 14.2 g/dL (12.0-15.0); Immature Granulocyte Absolute 0.02 K/mm3 (0.00-0.031); Immature Granulocyte Percent A 0.2 % (0-0.5); Lymphocytes Percent Auto 40.8 % (18.3-44.2); Mean Corpuscular HGB Conc 33.9 g/dl (32-36); Mean Corpuscular Hemoglobin 30.3 pg (26-34); Mean Corpuscular Volume 89.5 fl (80-100); Mean Platelet Volume 10.4 fl (7.4-10.4); Monocytes Absolute Auto 0.5 K/mm3 (0.1-0.6); Monocytes Percent Auto 4.5 % (2.6-8.5); Neutrophils Absolute Auto 5.3 K/mm3 (1.3-6.7); Neutrophils Percent Auto 51.5 % (45.5-73.1); Platelet Count Result 325 k/mm3 (150-375); Red Blood Count 4.68 M/mm3 (4.2-5.4); Red Cell Distribution Width 12.8 % (11.5-14.5); White Blood Count 10.3 K/mm3 (4.5-10.0)
[2024-05-29] MEDS: MAG HYDROX/AL HYDROX/SIMETH 30 ML UDC PO (02:40)
[2024-05-29] MEDS: KETOROLAC 15 MG/ML VIAL (*BKC) IV PUSH (02:40)
[2024-05-29] MEDS: SODIUM CHLORIDE 0.9% IV 1,000 ML 999 ML IV CONT (02:40)
[2024-05-29] MEDS: FAMOTIDINE 20 MG/2 ML VIAL IV PUSH (02:40)
--- NOTE | 2024-05-29 02:43 | ED.GENADULT ---
HPI - General Adult General Chief complaint: Unspecified Stated complaint: bad thing of acid reflux Time Seen by Provider: 05/29/24 02:14 History of Present Illness HPI narrative: 58-year-old female with a past medical history including gastroesophageal reflux disease for which she takes pantoprazole daily. She has a history of paroxysmal SVT that she takes metoprolol 4. Presents to the emergency department as she was having acid reflux and burning esophageal throat pain. She states she was otherwise in her normal state of health and then felt like she was having significant heartburn male night and sour taste in the back of her throat. She did vomit 1 time and now has burning in the back for throat and chest. Was otherwise in her normal state of health. No recent injuries or illnesses per no recent antibiotics. Tried some Tums at home without any relief. Came to the ER for evaluation. Denies any shortness a breath, fever, chills, nausea presently, chest tightness chest pressure or any exertional component to her symptoms. Related Data Home Medications ?Medication ?Instructions ?Recorded ?Confirmed ?Last Taken ?Type bupropion HCl 300 mg 24 hr tablet, 300 mg PO DAILY 03/15/21 11/23/23 Unknown History extended release metoprolol tartrate 50 mg tablet 50 mg PO DAILY 03/15/21 11/23/23 Unknown History milnacipran 50 mg tablet (Savella) 50 mg PO BID 03/15/21 11/23/23 Unknown History pantoprazole 40 mg tablet,delayed 40 mg PO DAILY 03/15/21 11/23/23 Unknown History release pregabalin 150 mg capsule 150 mg PO BID 04/01/22 11/23/23 Unknown [facility] 11/23/23 11/23/23 Unknown History Verio test strips) cholecalciferol (vitamin D3) 125 125 mcg PO DAILY 11/23/23 11/23/23 Unknown History mcg (5,000 unit) tablet (Vitamin D3) lancets 30 gauge (OneTouch Delica 11/23/23 11/23/23 Unknown History Plus Lancet) semaglutide 3 mg tablet (Rybelsus) 3 mg PO DAILY 11/23/23 11/23/23 Unknown History Allergies Allergy/AdvReac Type Severity Reaction Status Date / Time codeine Allergy Severe Difficulty Verified 11/23/23 11:25 Breathing aspirin AdvReac Intermediate Nausea Verified 11/23/23 11:25 Review of Systems Review of Systems: As reviewed above in [facility] Past Medical History Medical History Hyperlipidemia SVT (supraventricular tachycardia) Atypical chest pain Surgical History Surgical History H/O tubal ligation H/O: hysterectomy Family History Family History Father Heart disease Acute myocardial infarction Hypertension Grandparent Heart disease Mother Stomach cancer Social History Social History Smoking status: Former smoker Additional smoking assessment comments: quit 2006 Alcohol intake: never Substance use: never Living arrangements: with family Gender identity (if verbalized by the patient): Female Exam Narrative: GENERAL: [Well-appearing, well-nourished, and in no acute distress.] HEAD: [Normocephalic, atraumatic.] EYES: [PERRLA and EOMI.] ENT: Nares clear, no rhinorrhea or epistaxis. Mucous membranes moist. NECK: Supple. CHEST: [Clear to auscultation. No respiratory distress.] HEART: [Regular rate and rhythm]. No murmur heard. [Normal peripheral pulses.] ABDOMEN: [Soft, nondistended], [nontender], [No rigidity or guarding] EXTREMITIES: Normal range of motion. [No edema.] SKIN: Warm, dry, no rash. NEURO: [No focal deficits]. Alert and oriented [x3.] PSYCH: [Normal mood and affect.] Course Vital Signs Vital signs: Vital Signs Temperature 36.6 C 05/29/24 02:26 Pulse Rate 83 05/29/24 02:26 Respiratory Rate 15 05/29/24 02:26 Blood Pressure 135/82 05/29/24 02:26 Pulse Oximetry 96 05/29/24 02:26 Oxygen Delivery Room Air 05/29/24 02:26 Temperature 36.6 C 05/29/24 02:26 Pulse Rate 83 05/29/24 02:26 Respiratory Rate 15 05/29/24 02:26 Blood Pressure 135/82 05/29/24 02:26 Pulse Oximetry 96 05/29/24 02:26 Oxygen Delivery Room Air 05/29/24 02:26 Medical Decision Making MDM Narrative Medical decision making narrative: 58-year-old female with history of GERD, paroxysmal SVT on metoprolol, hyperlipidemia. She presents today with signs and symptoms of acid reflux. She states she was otherwise in her normal state of health but had a significant acid reflux flare up where she was having heartburn with burning esophageal throat pain, pain retrosternally and 1 episode of vomiting. No present nauseousness, no shortness of breath, chest tightness or chest pressure. States she took some Tums without any significant relief. She has normal vital signs, no tachycardia, fever, hypoxia blood pressure elevations. She has an unremarkable physical examination. 2+ strong pulses, warm extremities, clear breath sounds. Suspicion presently is for gastroesophageal reflux, gastritis, esophagitis, low suspicion for ACS or cardiac pathology. No present suspicion for infection such as pneumonia. Workup ordered including CBC, CMP, troponin, EKG, chest x-ray. She was given a combination medications to try including Maalox, Pepcid, Toradol, normal saline bolus. Patient was placed on cardiac cath rn and re-evaluated. Patient's workup was unremarkable. No leukocytosis or anemia. Normal platelet count. Electrolytes within normal limits, normal renal function, normal glucose, normal LFTs. Negative troponin. EKG without any acute ischemic evidence. Re-evaluation with improvement in symptoms. She is safe for discharge at this time. Will be prescribed Pepcid as well as taking her Protonix at home. Medical Records Medical records reviewed: Yes I reviewed the external patient's medical records. Vital Signs Vital Signs: Vital Signs Temperature 36.6 C 05/29/24 02:26 Pulse Rate 83 05/29/24 02:26 Respiratory Rate 15 05/29/24 02:26 Blood Pressure 135/82 05/29/24 02:26 Pulse Oximetry 96 05/29/24 02:26 Oxygen Delivery Room Air 05/29/24 02:26 Temperature 36.6 C 05/29/24 02:26 Pulse Rate 83 05/29/24 02:26 Respiratory Rate 15 05/29/24 02:26 Blood Pressure 135/82 05/29/24 02:26 Pulse Oximetry 96 05/29/24 02:26 Oxygen Delivery Room Air 05/29/24 02:26 Lab Data Lab results reviewed: Yes I reviewed the patient's lab results. 05/29/24 02:32 05/29/24 02:32 Labs: Lab Results 05/29/24 Range/Units 02:32 WBC 10.3 H (4.5-10.0) K/mm3 RBC 4.68 (4.2-5.4) M/mm3 Hgb 14.2 (12.0-15.0) g/dL Hct 41.9 (37.0-47.0) % MCV 89.5 (80-100) fl MCH 30.3 (26-34) pg MCHC 33.9 (32-36) g/dl RDW 12.8 (11.5-14.5) % Plt Count 325 (150-375) k/mm3 MPV 10.4 (7.4-10.4) fl Immature Gran % (Auto) 0.2 (0-0.5) % Neut % (Auto) 51.5 (45.5-73.1) % Lymph % (Auto) 40.8 (18.3-44.2) % [place] % (Auto) 4.5 (2.6-8.5) % Eos % (Auto) 2.4 (0-4.4) % Baso % (Auto) 0.6 (0.2-1.2) % Lymph # (Auto) 4.20 H (0.9-3.2) K/mm3 [place] # (Auto) 0.5 (0.1-0.6) K/mm3 Eos # (Auto) 0.3 (0-0.3) K/mm3 Baso # (Auto) 0.1 (0.0-0.1) K/mm3 Abs Immat Gran (auto) 0.02 (0.00-0.031) K/mm3 Absolute Neuts (auto) 5.3 (1.3-6.7) K/mm3 Absolute Nucleated RBC 0.000 (0.0-0.012) K/mm3 Nucleated RBC % 0.0 (0.0-0.2) % Sodium 139 (137-145) mmol/L Potassium 4.2 (3.4-5.0) mmol/L Chloride 104 (98-107) mmol/L Carbon Dioxide 25 (22-30) mmol/L Anion Gap 10 (4-12) mmol/L BUN 17 (7-17) mg/dL Creatinine 0.80 (0.7-1.0) mg/dL Estim Creat Clear Calc Not Reportable Estimated GFR > 60 (59 - ) Glucose 145 H (65-110) mg/dL Calcium 9.4 (8.4-10.2) mg/dL Total Bilirubin 0.4 (0.2-1.3) mg/dL AST 28 (14-36) U/L ALT 26 (6-35) U/L Alkaline Phosphatase 60 (38-126) U/L Troponin I < 0.012 (0.000-0.034) ng/mL Total Protein 7.0 (6.3-8.2) g/dL Albumin 4.1 (3.5-5.1) g/dL Imaging Data Attestation: I personally reviewed and interpreted this imaging study as follows: My impression: Chest x-ray for epigastric burning discomfort was reviewed. No evidence of consolidation, pleural effusions or pneumothorax. Change compared to prior x-ray several years ago. ECG Data EKG #1: Attestation: I personally reviewed and interpreted this ECG as follows: ECG completion date: 05/29/24 ECG completion time: 03:26 Prior ECG tracings: not available for review Interpretation: No ST segment elevations, depressions or inversions. Normal sinus rhythm, regular rate, regular rhythm, regular axis. QTC 4 left, W[place] interval 147, rate 80. QRS 89. Final interpretation normal sinus rhythm. Discharge Plan Discharge Clinical Impression: Chest pain due to GERD, Chest pain Patient Disposition: Home, Self-Care Condition: Stable Instructions: Antibiotic Form, GERD (Gastroesophageal Reflux Disease) (DC) Patient Language: Icelandic Prescriptions: New alum-mag hydroxide-simeth [Maalox Advanced] 200-200-20 mg/5 mL suspension 15 ml PO QID PRN (Reason: indigestion) Qty: 3000 0RF Rx Instructions: administer between meals and at bedtime famotidine [Pepcid] 20 mg tablet 20 mg PO BID Qty: 20 0RF No Action pantoprazole 40 mg tablet,delayed release (DR/EC) 40 mg PO DAILY metoprolol tartrate 50 mg tablet 50 mg PO DAILY bupropion HCl 300 mg tablet extended release 24 hr 300 mg PO DAILY Savella 50 mg tablet 50 mg PO BID (DME) OneTouch Verio test strips Strip MISCELLANEOUS (DME) lancets [OneTouch Delica Plus Lancet] 30 gauge misc MISCELLANEOUS Rybelsus 3 mg tablet 3 mg PO DAILY cholecalciferol (vitamin D3) [Vitamin D3] 125 mcg (5,000 unit) Tablet 125 mcg PO DAILY amoxicillin 875 mg tablet 875 mg PO Q12H 10 Days Qty: 20 0RF fluticasone propionate [Flonase Allergy Relief] 50 mcg/actuation spray,suspension 1 spray intranasal BID Qty: 16 0RF Rx Instructions: administer into each nostril loratadine [Claritin] 10 mg tablet 10 mg PO DAILY Qty: 30 0RF pregabalin 150 mg capsule 150 mg PO BID Follow-up/Referrals: PHYSICIAN,SUPERVISOR INSPECTION AND TESTING [Primary Care Provider] -
[2024-05-29 02:50] LABS: Alanine Aminotransferase 26 U/L (6-35); Albumin Level 4.1 g/dL (3.5-5.1); Alkaline Phosphatase 60 U/L (38-126); Anion Gap 10 mmol/L (4-12); Aspartate Amino Transferase 28 U/L (14-36); Bilirubin,Total 0.4 mg/dL (0.2-1.3); Blood Urea Nitrogen 17 mg/dL (7-17); Calcium 9.4 mg/dL (8.4-10.2); Carbon Dioxide 25 mmol/L (22-30); Chloride 104 mmol/L (98-107); Estimated Glomerular Filt Rate > 60; Glucose 145 mg/dL (65-110); Potassium 4.2 mmol/L (3.4-5.0); Sodium 139 mmol/L (137-145)
[2024-05-29 03:01] LABS: Troponin I < 0.012 ng/mL (0.000-0.034)
[2024-05-29] MEDS: BELLADONNA ALK/PHENOB ELIX 10 ML, MAG HYDROX/ALUMINUM HYD/SIMETH 30 ML, LIDOCAINE 2% VI... PO (03:55)
[2024-05-29 04:36] VITALS: BP 127/82; PULSE 78; RESP 15; O2SAT 100
== END 2024-05-29 04:38 | disposition home or self-care (01) ==
PROVIDERS: Emergency Provider Student in an Organized Health Care Education/Training Program
DX: R07.89 Other chest pain (principal); K21.9 Gastro-esophageal reflux disease without esophagitis; E78.5 Hyperlipidemia, unspecified
CPT/HCPCS: 36415; 71045; 80053; 84484; 85025; 93005; 96361; 96374; 96375; 99284; A9270; J1885; J7030

== ENCOUNTER 2024-06-11 19:26 | Emergency (ER) | payer OTHER, SELFPAY ==
--- NOTE | ~2024-06-11 | XR_ITS ---
XR chest 2V Ordering provider: Trinidad Mandujano History: 58 years Female with . chest pain . Comparison: May 29, 2024 FINDINGS: MEDIASTINUM: The cardiac silhouette is not enlarged. LUNGS: No infiltrates, effusions or pneumothorax. OTHER: No free air under the diaphragm. IMPRESSION: No acute cardiopulmonary pathology. Reviewed, dictated and finalized at location A.
--- OUTSIDE RECORDS SUMMARY | 2024-06-11 19:29 | XMS_ITS | Clinical Summary ---
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 Gender Identity Not on file Sexual Orientation Not on file Last Filed Vital Signs Vital Sign Reading Time Taken Comments Blood Pressure 99/60 01/09/2018 5:03 PM STEAM CRANE OPERATOR Pulse 75 01/09/2018 5:03 PM STEAM CRANE OPERATOR Temperature 36.6 C (97.9 F) 01/09/2018 3:04 PM STEAM CRANE OPERATOR Respiratory Rate 21 01/09/2018 5:03 PM STEAM CRANE OPERATOR Oxygen Saturation 99% 01/09/2018 5:03 PM STEAM CRANE OPERATOR Inhaled Oxygen Concentration - - Weight 72.6 kg (160 lb) 01/09/2018 3:04 PM STEAM CRANE OPERATOR Height 172.7 cm (5' 8 ) 01/09/2018 3:04 PM STEAM CRANE OPERATOR Body Mass Index 24.33 01/09/2018 3:04 PM STEAM CRANE OPERATOR Plan of Treatment Health Maintenance Due Date [...] 2) 2016 INFLUENZA VACCINE (#1) 2023 Insurance [employer] ACCESS CHOICE Care Teams Tree Shear Operator Relationship Specialty Start Date End Date Maykel Hardwick MD PCP - General Family Practice 01/09/18
--- OUTSIDE RECORDS SUMMARY | 2024-06-11 19:29 | XMS_ITS | Clinical Summary ---
Author Organization [facility] Address [address] [place] [address] Care Team Providers Care Expander Name Role Phone Maykel Hardwick MD Primary Care Provi [facility] Source Comments [facility],non-owned Affiliates and Associated Physician Practices is amultiple site organization consisting of ambulatory clinics and hospital sitesin [place], [place], [place] and [place]. This disclosure is being madepursuant to the Care Everywhere program and may not contain all information available regarding this patient. Last updated 17.[facility] Allergies Active Allergy Reactions Criticality Noted Date Comments Aspirin GI Discomfort Low 08/01/2016 Prednisone 08/01/2016 Medications * Be aware that medications may not be up to date on this document. Alwaysverify current medications with the patient. pantoprazole EC (PROTONIX) 20 MG tablet Take [...] times daily as needed with food Active Cholecalcifero l (VITAMIN D3) 5000 UNITS TBDP Take 5,000 [...] help after the second dose. 30 Tab 7 Active buPROPion XL 24hr (WELLBUTRIN-XL ) 300 MG tablet Take 300 mg by [...] at Not on file Legal Sex Female 12:17 AM CDT Gender Identity Not on file Sexual [...] VACCINE (1 of 2) 2016 COVID-19 VACCINE ( - 2023-2 5 season) 2023 DEPRESSION SCREENING 02/29/2024 INFLUENZA VACCINE (Season Ended) 2024 HIB VACCINE Aged Out No longer eligi [...] on patient's age to complete this topic Insurance [facility] Advance Directives * Full Code (Latest Code Status on File) Date Activated Date Inactivated Comments 08/01/2016 2:39 AM 08/01/2016 6:49 PM Care Teams Expander Relationship Specialty Start Date End Date Maykel Hardwick MD PCP - General Family Medicine 08/01/16
--- OUTSIDE RECORDS SUMMARY | 2024-06-11 19:29 | XMS_ITS | Encounter Summary ---
Author Organization [facility] Care Team Providers Care Records And Tape Recordings Engineer Name Role Phone Maykel Hardwick MD Primary Care Provi ritika Denise Regalado MD Primary Care Provider Bhavana Castorena NP Primary Care Provider [phone] Encounter Details Date Type Department Care Team (Latest Contact Info) Description 07/19/2017 Orders Only [facility]IN[facility] ProviderTom MD [address] [place] [id number] Social History Tobacco Use Types Packs/Day Years Used Date Smoking Tobacco: Never Assessed Comments Unknown Sex and Gender Information Value Date Recorded Sex Assigned at Not on file Legal Sex Female 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
--- OUTSIDE RECORDS SUMMARY | 2024-06-11 19:29 | XMS_ITS | Encounter Summary ---
Author Organization [facility] Care Team Providers Care Route Sales Trainee Name Role Phone Maykel Hardwick MD Primary Care Provi ritika Denise Regalado MD Primary Care Provider Bhavana Castorena NP Primary Care Provider [phone] Encounter Details Date Type Department Care Team (Latest Contact Info) Description 09/08/2017 Orders Only [facility] CLINCONV ProviderTom MD [address] [place] [address] Social History Tobacco Use Types Packs/Day Years Used Date Smoking Tobacco: Never Assessed Comments Unknown Sex and Gender Information Value Date Recorded Sex Assigned at Not on file Legal Sex Female 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 ASSISTANT Gender Identity Not on file Sexual Orientation [...] documented as of this encounter Care Teams Route Sales Trainee Relationship Specialty Start Date End Date Maykel Hardwick MD [address] [facility] [address] [place] [address] PCP - General Family Medicine 09/13/18 09/05/22 Denise Regalado MD [address] [facility] [address] [place] [address] PCP - General Family Practice 09/06/22 03/20/24 Bhavana Castorena NP [address] [facility] [address] [place] [address] PCP - General Family Medicine 03/21/24 documented as of this encounter
--- OUTSIDE RECORDS SUMMARY | 2024-06-11 19:29 | XMS_ITS | Encounter Summary ---
Author Organization [facility] Care Team Providers Care Mortgage Underwriter Name Role Phone Maykel Hardwick MD Primary Care Provi ritika Denise Regalado MD Primary Care Provider Bhavana Castorena NP Primary Care Provider [phone] Encounter Details Date Type Department Care Team (Latest Contact Info) Description 04/30/2015 Orders Only [facility] CLINCONV ProviderTom MD [address] [place] [id number] Social History Tobacco Use Types Packs/Day Years Used Date Smoking Tobacco: Never Assessed Comments Unknown Sex and Gender Information Value Date Recorded Sex Assigned at Not on file Legal Sex Female 8:40 AM MDS MANAGER Gender Identity Not on file Sexual Orientation Not on file documented as of this encounter Plan of Treatment Not on file documented as of this encounter Procedures Procedure Name Priority Date/Time Associated Diagnosis Comments CARDIOLOGY REPORT 05/04/2015 12: 00 AM MDS MANAGER documented in this encounter Results * CARDIOLOGY REPORT (05/04/2015 12:00 AM MDS MANAGER) Anatomical Region Laterality Modality Other Narrative 05/04/2015 12:00 AM MDS MANAGER Ordered by an unspecified provider. Historical [...] documented as of this encounter Care Teams Mortgage Underwriter Relationship Specialty Start Date End Date Maykel Hardwick MD [address] [place] [address] PCP - General Family Medicine 09/13/18 09/05/22 Denise Regalado MD [address] [place] [address] PCP - General Family Practice 09/06/22 03/20/24 Bhavana Castorena NP [address] [place] [address] PCP - General Family Medicine 03/21/24 documented as of this encounter
--- OUTSIDE RECORDS SUMMARY | 2024-06-11 19:29 | XMS_ITS | Clinical Summary ---
Author Organization [facility] Address [address] [place] [address] Care Team Providers Care Table Games Floor Supervisor Name Role Phone Bhavana Castorena NP Primary Care Provider [phone] Allergies Active Allergy Reactions Criticality Noted Date Comments Aspirin Nausea only Low 06/02/2018 Glipizide Rash Medium 05/31/2023 Hydrocodone Shortness of breath High 09/08/2017 Itching Metformin Diarrhea Low 10/21/2022 Did not tolerate metformin ER 500 mg. Oxycodone-Acetaminophe n Anaphylaxis High 01/09/2018 Prednisone Shortness of breath High 06/02/2018 [place] Other (See comments) Low 09/08/2017 RESPIRATORY DISTRESS, [...] hyperglycemia, without long-term current use of insulin ([facility]) Use 1 strip daily to test blood [...] hyperglycemia, without long-term current use of insulin ([facility]) Use 1 strip 3x to check blood sugar before meals 200 each 2 4 01/11/20 25 Active lancets ([email or web address] Delica Plus Lancet) 30 gauge miscIndications:Ty pe 2 diabetes mellitus with hyperglycemia, without long-term current use of insulin ([facility]) Test blood glucose level three times daily [...] 06/17/2016 Assessment & Plan (03/21/2024 11:47 AM MOISTURE METER READER): She has difficulty taking rybelsus due to [...] recurrence. Assessment & Plan (03/21/2024 10:50 AM MOISTURE METER READER): Hx SVT, has had an ablation. Currently [...] 6 Assessment & Plan (03/21/2024 10:51 AM MOISTURE METER READER): Stable on current medication. Continue pantoprazole as [...] 09/03/2015 Assessment & Plan (03/21/2024 10:52 AM MOISTURE METER READER): Currently on oral B12 Vitamin D deficiency 09/03/2015 Assessment & Plan (03/21/2024 11:48 AM MOISTURE METER READER): Continues on oral vitamin d Mixed hyperlipidemia 09/03/2015 Assessment & Plan (03/21/2024 10:52 AM MOISTURE METER READER): Lipid abnormalities are stable, reviewed previous lipid levels in [facility]. Continue statin therapy. Crestor (rosuvastatin) Order for [...] 05/12/2015 Assessment & Plan (03/21/2024 10:49 AM MOISTURE METER READER): Start to wean some medication per patient [...] Department Care Team Description 05/02/2024 2:15 PM MOISTURE METER READER Office Visit [facility] Care at [address] [address] Kita Logan PA Diarrhea, unspecified type (Primary Dx) 03/21/2024 10:30 AM MOISTURE METER READER Office Visit [facility] Primary Care at [address] [address] Bhavana Castorena NP Type 2 [...] current use of insulin (HCC) 03/21/2024 Telephone [facility] Primary Care at [address] [address] Bhavana Castorena NP PA for Ozempic 03/15/2024 Documentation [facility] Care [address] [place] [id number] Ira Yo MD 03/14/2024 Orders Only [address] [address] Tierra Orlando NP Fibromyalgia from [...] on file Legal Sex Female 8:40 AM MOISTURE METER READER Gender Identity Not on file Sexual Orientation Not on file Obstetrics History Para Term AB IAB SAB Ectopic Multiple Livin g Live Births 3 3 3 Date Outcome GA Total Labor Labor/2nd/3rd Weight Sex Type Anes PTL Elaine A1 A5 Name Clin Term Term Term Last Filed Vital Signs Vital Sign Reading Time Taken Comments Blood Pressure 96/63 05/02/2024 2:10 PM MOISTURE METER READER Pulse 89 05/02/2024 2:10 PM MOISTURE METER READER Temperature 36.7 C (98 F) 05/02/2024 2:10 PM MOISTURE METER READER Respiratory Rate 16 05/02/2024 2:10 PM MOISTURE METER READER Oxygen Saturation 98% 05/02/2024 2:10 PM MOISTURE METER READER Inhaled Oxygen Concentration - - Weight 77.6 kg (171 lb) 05/02/2024 2:10 PM MOISTURE METER READER Height 149.9 cm (4' 11 ) 03/21/2024 10:32 AM MOISTURE METER READER Body Mass Index 34.54 03/21/2024 10:32 AM MOISTURE METER READER Plan of Treatment Health Maintenance Due Date [...] POCT HEMOGLOBIN A1C Routine 03/21/2024 10:43 AM MOISTURE METER READER Type 2 diabetes mellitus with hyperglycemia, without long-term current use of insulin (HCC) THYROID FUNCTION CASCADE Routine 03/16/2024 7:45 AM MOISTURE METER READER Type 2 diabetes mellitus without complication, without long-term current use of insulin (HCC) Sinus tachycardia ALBUMIN CREATININE RATIO, URINE Routine 03/16/2024 7:45 AM MOISTURE METER READER Type 2 diabetes mellitus without complication, without long-term current use of insulin (HCC) CBC WITH AUTO DIFFERENTIAL Routine 03/16/2024 7:45 AM MOISTURE METER READER Type 2 diabetes mellitus without complication, without long-term current use of insulin (HCC) LIPID PANEL Routine 03/16/2024 7:45 AM MOISTURE METER READER Type 2 diabetes mellitus without complication, without long-term current use of insulin (HCC) Mixed hyperlipidemia COMPREHENSIVE METABOLIC PANEL Routine 03/16/2024 7:45 AM MOISTURE METER READER Type 2 diabetes mellitus without complication, without long-term current use of insulin (HCC) Mixed hyperlipidemia HEPATITIS B CORE IGM Routine 03/16/2024 7:45 AM MOISTURE METER READER Need for hepatitis B screening test HEPATITIS B SURFACE ANTIBODY (IMMUNE STATUS) Routine 03/16/2024 7:45 AM MOISTURE METER READER Need for hepatitis B screening test HEPATITIS B SURFACE ANTIGEN Routine 03/16/2024 7:45 AM MOISTURE METER READER Need for hepatitis B screening test HEPATITIS C ANTIBODY Routine 03/16/2024 7:45 AM MOISTURE METER READER Encounter for hepatitis C screening test for low risk patient SCREENING MAMMOGRAM BILATERAL W SERAFIN Schedule Routine, Read Routine (OP Routine) 02/09/2023 4:24 PM MOISTURE METER READER Screening mammogram, encounter for from Last 3 Months or Most Recently Relevant to Health Maintenance Results * POCT hemoglobin A1c (03/21/2024 10:43 AM MOISTURE METER READER) Hemoglobin A1C, POC 7.9 4.0 - 5.6 % Blood 03/21/2024 10:4 3 AM MOISTURE METER READER Bhavana Castorena NP POINT OF CARE TEST ORDERABLES Final Result * Thyroid Function [place] (03/16/2024 7:45 AM MOISTURE METER READER) Pathologist [facility] [place] TSH 1.180 0.450 - 4.500 uIU/mL [facility] - 01 Comment: No apparent thyroid disorder. Additional testing not indicated. In rare instances, Secondary Hypothyroidism as well as Subclinical Hypothyroidism have been reported in some patients with normal TSH values. Blood 03/16/2024 7:45 AM MOISTURE METER READER 03/16/2024 Narrative [facility] - 03/17/2024 2:07 AM MOISTURE METER READER Performed at: - [address] [id number] Solution Make Up Operator: Salvatore Chase PhD, Phone: [phone] Denise Regalado MD LAB BLOOD ORDERABLES F inal Result [facility] - 01 * CBC with auto differential (03/16/2024 7:45 AM MOISTURE METER READER) Pathologist [facility] [place] WBC 8.5 3.4 - 10.8 x10E3/uL [facility] [...] [facility] - 01 Blood 03/16/2024 7:45 AM MOISTURE METER READER 03/16/2024 Narrative [facility] - 03/17/2024 12:06 AM MOISTURE METER READER Performed at: [address] [place] [id number] Solution Make Up Operator: Salvatore Chase PhD, Phone: [phone] Denise Regalado MD LAB BLOOD ORDERABLES F inal Result Performing Organization Address [facility] Co de Phone Number [facility] - * Hepatitis C antibody Blood (03/16/2024 7:45 AM MOISTURE METER READER) [facility] Hep C Ab Non Reactive Non Reactive [facility] - 01 Comment: HCV antibody alone does not differentiate between previously resolved infection and active infection. Equivocal and Reactive HCV antibody results should be followed up with an HCV RNA test to support the diagnosis of active HCV infection. Blood 03/16/2024 7:45 AM MOISTURE METER READER 03/16/2024 Narrative [facility] - 03/17/2024 5:07 AM MOISTURE METER READER Performed at: [address] [place] [id number] Solution Make Up Operator: Salvatore Chase PhD, Phone: [phone] Denise Regalado MD LAB MICROBIOLOGY - GEN ERAL ORDERABLES Final Result Performing Organization Address [facility] Co de Phone Number [facility] * Albumin Creatinine Ratio, Urine (03/16/2024 7:45 AM MOISTURE METER READER) Pathologist [facility] [place] Creatinine ur 186.6 Not Estab. mg/dL [facility] - 01 Microalbumin, ur 22.6 Not Estab. ug/mL [facility] - 01 Microalbumin/cre at ratio 12 0 - 29 mg/g creat [facility] - 01 Comment: Normal: 0 - 29 Moderately increased: 30 - 300 Severely increased: >300 Urine 03/16/2024 7:45 AM MOISTURE METER READER 03/16/2024 Narrative [facility] - 03/17/2024 5:07 AM MOISTURE METER READER Performed at: [address] [place] [id number] Solution Make Up Operator: Salvatore Chase PhD, Phone: [phone] Denise Regalado MD LAB URINE ORDERABLES F inal Result Performing Organization Address [facility] Co de Phone Number [facility] - * Hepatitis B core antibody, IgM Blood (03/16/2024 7:45 AM MOISTURE METER READER) [facility] Hep B core IgM Negative Negative [facility] - Blood 03/16/2024 7:45 AM MOISTURE METER READER 03/16/2024 Narrative [facility] - 03/17/2024 5:07 AM MOISTURE METER READER Performed at: [address] [place] [id number] Solution Make Up Operator: Salvatore Chase PhD, Phone: [phone] Denise Regalado MD LAB MICROBIOLOGY - GEN ERAL ORDERABLES Final Result Performing Organization Address City/[facility]/ZIP Co de Phone Number [facility] - * Hepatitis B surface antibody (immune status) Blood (03/16/2024 7:45 AM MOISTURE METER READER) [facility] HBsAb (immune status) Non Reactive [facility] - 01 Comment: Non Reactive: Not immune to HBV infection. Equivocal: Unable to determine if anti-HBs is present at levels consistent with immunity. Reactive: Anti-HBs concentration detected at greater than 10 mIU/mL. Individual is considered to be immune to infection with HBV. Blood 03/16/2024 7:45 AM MOISTURE METER READER 03/16/2024 Narrative [facility] - 03/17/2024 5:07 AM MOISTURE METER READER Performed at: [address] [id number] Solution Make Up Operator: Salvatore Chase PhD, Phone: [phone] Denise Regalado MD LAB MICROBIOLOGY - GEN ERAL ORDERABLES Final Result Performing Organization Address City/[facility]/ZIP Co de Phone Number [facility] - * Hepatitis B Surface Antigen Blood (03/16/2024 7:45 AM MOISTURE METER READER) HepBsAg Negative Negative [facility] - Blood 03/16/2024 7:45 AM MOISTURE METER READER 03/16/2024 Narrative [facility] - 03/17/2024 5:07 AM MOISTURE METER READER Performed at: [address] [id number] Solution Make Up Operator: Salvatore Chase PhD, Phone: [phone] us Denise Regalado MD LAB MICROBIOLOGY - GEN ERAL ORDERABLES Final Result Performing Organization Address [facility] Co de Phone Number [facility] - * Lipid panel (03/16/2024 7:45 AM MOISTURE METER READER) Cholesterol 135 100 - 199 mg/dL [facility] - 01 Triglycerides 99 0 - 149 mg/dL [facility] - 01 HDL Cholesterol 41 >39 mg/dL [facility] - 01 VLDL 19 5 - 40 mg/dL [facility] - 01 LDL, calculated 75 0 - 99 mg/dL [facility] - 01 Blood 03/16/2024 7:45 AM MOISTURE METER READER 03/16/2024 Narrative [facility] - 03/17/2024 1:06 AM MOISTURE METER READER Performed at: [address] [id number] Solution Make Up Operator: Salvatore Chase PhD, Phone: [phone] us Denise Regalado MD LAB BLOOD ORDERABLES F inal Result Performing Organization Address City/[facility]/ZIP Co de Phone Number [facility] - 01 * (ABNORMAL) Comprehensive metabolic panel (03/16/2024 7:45 AM MOISTURE METER READER) Pathologist [facility] [place] Glucose 183(H) 70 - 99 mg/dL [facility] [...] [facility] - 01 Blood 03/16/2024 7:45 AM MOISTURE METER READER 03/16/2024 Narrative [facility] - 03/17/2024 1:06 AM MOISTURE METER READER Performed at: - [address] [id number] Solution Make Up Operator: Salvatore Chase PhD, Phone: [phone] us Denise Regalado MD LAB BLOOD ORDERABLES F inal Result Performing Organization Address City/[facility]/ZIP Co de Phone Number [facility] - 01 * Screening Mammogram Bilateral W Serafin (02/09/2023 4:24 PM MOISTURE METER READER) Anatomical Region Laterality Modality Breast Bilateral Mammography Impressions 02/09/2023 4:33 PM MOISTURE METER READER BI-RADS ATLAS category (overall): 1 - Negative There is no mammographic evidence of malignancy. A 1 year screening mammogram is recommended. The patient has been or will be contacted. We recommend annual screening mammography for women at average risk of breast cancer beginning at age 40, based on guidelines of the [employer] [place] [employer] (ACR Practice Parameter for the Performance of Screening and Diagnostic Mammography) and [place] [employer]. For women with and elevated risk of breast cancer, please refer to the ACR Practice Parameter for specific screening recommendations. The patient will be entered into a reminder system with a target due date of 1 year for her next screening exam. Narrative 02/09/2023 4:33 PM MOISTURE METER READER Screening Mammogram Bilateral W Serafin: 02/09/23 The [...] Relevant to Health Maintenance Insurance AETNA SIG [id number] AETNA SIG [id number] Care Teams Table Games Floor Supervisor Relationship Specialty Start Date End Date Bhavana Castorena NP [address] [address] PCP - General Family Medicine 03/21/24
--- OUTSIDE RECORDS SUMMARY | 2024-06-11 19:29 | XMS_ITS | Encounter Summary ---
Author Organization [facility] Facility Care Team Providers Care Tinning Machine Set Up Operator Name Role Phone Maykel Hardwick MD Primary Care Provi ritika Denise Regalado MD Primary Care Provider Bhavana Castorena NP Primary Care Provider [phone] Encounter Details Date Type Department Care Team (Latest Contact Info) Description 07/20/2017 Orders Only [facility] CLINCONV Provider, MD Tom [address] [place] [address] Social History Tobacco Use Types Packs/Day Years Used Date Smoking Tobacco: Never Assessed Comments Unknown Sex and Gender Information Value Date Recorded Sex Assigned at Not on file Legal Sex Female 8:40 AM JOB TRAINING SPECIALIST Gender Identity Not on file Sexual [...] documented as of this encounter Care Teams Tinning Machine Set Up Operator Relationship Specialty Start Date End Date Maykel Hardwick MD [address] [facility] [address] [place] [address] PCP - General Family Medicine 09/13/18 09/05/22 Denise Regalado MD [address] [facility] [address] [place] [address] PCP - General Family Practice 09/06/22 03/20/24 Bhavana Castorena NP [address] [facility] [address] [place] [address] PCP - General Family Medicine 03/21/24 documented as of this encounter
--- OUTSIDE RECORDS SUMMARY | 2024-06-11 19:29 | XMS_ITS | Encounter Summary ---
Author Organization [facility] Facility Care Team Providers Care Psychic Reader Name Role Phone Maykel Hardwick MD Primary Care Provi ritika Denise Regalado MD Primary Care Provider Bhavana Castorena NP Primary Care Provider [phone] Encounter Details Date Type Department Care Team (Latest Contact Info) Description 09/04/2016 Orders Only [facility] CLINCONV ProviderTom MD [address] [place] [address] Social History Tobacco Use Types Packs/Day Years Used Date Smoking Tobacco: Never Assessed Comments Unknown Sex and Gender Information Value Date Recorded Sex Assigned at Not on file Legal Sex Female 8:40 AM BOAT TENDER Gender Identity Not on file Sexual Orientation [...] documented as of this encounter Care Teams Psychic Reader Relationship Specialty Start Date End Date Maykel Hardwick MD [address] [facility] [address] [place] [address] PCP - General Family Medicine 09/13/18 09/05/22 Denise Regalado MD [address] [facility] [address] [place] [address] PCP - General Family Practice 09/06/22 03/20/24 Bhavana Castorena NP [address] [facility] [address] [place] [address] PCP - General Family Medicine 03/21/24 documented as of this encounter
--- OUTSIDE RECORDS SUMMARY | 2024-06-11 19:29 | XMS_ITS | Referral Summary ---
Author Organization [facility] Address [address] [place] [address] Care Team Providers Care Patient Observation Assistant Name Role Phone Bhavana Castorena NP Primary Care Provider [phone] Encounters Date Type Department Care Team Description 05/02/2024 2:15 PM WIRE SAWYER Office Visit [facility] Care at [address] [address] Kita Logan PA Diarrhea, unspecified type (Primary Dx) 03/21/2024 Telephone [facility] Primary Care at [address] [address] Bhavana Castorena NP PA for Ozempic 03/21/2024 10:30 AM WIRE SAWYER Office Visit [facility] Primary Care at [address] [address] Bhavana Castorena NP Type 2 [...] current use of insulin (HCC) 03/15/[address] [address] Ira Yo MD 03/14/2024 Orders Only [facility] Virtual Care [address] [place] [address] Tierra Orlando NP Fibromyalgia from Last 3 Months Allergies Active Allergy Reactions Criticality Noted Date Comments Aspirin Nausea only Low 06/02/2018 Glipizide Rash Medium 05/31/2023 Hydrocodone Shortness of breath High 09/08/2017 Itching Metformin Diarrhea Low 10/21/2022 Did not tolerate metformin ER 500 mg. Oxycodone-Acetaminophe n Anaphylaxis High 01/09/2018 Prednisone Shortness of breath High 06/02/2018 [place] Other (See comments) Low 09/08/2017 RESPIRATORY DISTRESS, [...] hyperglycemia, without long-term current use of insulin ([facility]) Test blood glucose level three [...] 06/17/2016 Assessment & Plan (03/21/2024 11:47 AM WIRE SAWYER): She has difficulty taking rybelsus due to [...] recurrence. Assessment & Plan (03/21/2024 10:50 AM WIRE SAWYER): Hx SVT, has had an ablation. Currently [...] 6 Assessment & Plan (03/21/2024 10:51 AM WIRE SAWYER): Stable on current medication. Continue pantoprazole as [...] 09/03/2015 Assessment & Plan (03/21/2024 10:52 AM WIRE SAWYER): Currently on oral B12 Vitamin D deficiency 09/03/2015 Assessment & Plan (03/21/2024 11:48 AM WIRE SAWYER): Continues on oral vitamin d Mixed hyperlipidemia 09/03/2015 Assessment & Plan (03/21/2024 10:52 AM WIRE SAWYER): Lipid abnormalities are stable, reviewed previous lipid levels in [facility]. Continue statin therapy. Crestor (rosuvastatin) Order for [...] 05/12/2015 Assessment & Plan (03/21/2024 10:49 AM WIRE SAWYER): Start to wean some medication per patient [...] on file Legal Sex Female 8:40 AM WIRE SAWYER Gender Identity Not on file Sexual Orientation Not on file Last Filed Vital Signs Vital Sign Reading Time Taken Comments Blood Pressure 96/63 05/02/2024 2:10 PM WIRE SAWYER Pulse 89 05/02/2024 2:10 PM WIRE SAWYER Temperature 36.7 C (98 F) 05/02/2024 2:10 PM WIRE SAWYER Respiratory Rate 16 05/02/2024 2:10 PM WIRE SAWYER Oxygen Saturation 98% 05/02/2024 2:10 PM WIRE SAWYER Inhaled Oxygen Concentration - - Weight 77.6 kg (171 lb) 05/02/2024 2:10 PM WIRE SAWYER Height 149.9 cm (4' 11 ) 03/21/2024 10:32 AM WIRE SAWYER Body Mass Index 34.54 03/21/2024 10:32 AM WIRE SAWYER Plan of Treatment Not on file Procedures Procedure Name Priority Date/Time Associated Diagnosis Comments POCT HEMOGLOBIN A1C Routine 03/21/2024 10:43 AM WIRE SAWYER Type 2 diabetes mellitus with hyperglycemia, without long-term current use of insulin (HCC) THYROID FUNCTION CASCADE Routine 03/16/2024 7:45 AM WIRE SAWYER Type 2 diabetes mellitus without complication, without long-term current use of insulin (HCC) Sinus tachycardia ALBUMIN CREATININE RATIO, URINE Routine 03/16/2024 7:45 AM WIRE SAWYER Type 2 diabetes mellitus without complication, without long-term current use of insulin (HCC) CBC WITH AUTO DIFFERENTIAL Routine 03/16/2024 7:45 AM WIRE SAWYER Type 2 diabetes mellitus without complication, without long-term current use of insulin (HCC) LIPID PANEL Routine 03/16/2024 7:45 AM WIRE SAWYER Type 2 diabetes mellitus without complication, without long-term current use of insulin (HCC) Mixed hyperlipidemia COMPREHENSIVE METABOLIC PANEL Routine 03/16/2024 7:45 AM WIRE SAWYER Type 2 diabetes mellitus without complication, without long-term current use of insulin (HCC) Mixed hyperlipidemia HEPATITIS B CORE IGM Routine 03/16/2024 7:45 AM WIRE SAWYER Need for hepatitis B screening test HEPATITIS B SURFACE ANTIBODY (IMMUNE STATUS) Routine 03/16/2024 7:45 AM WIRE SAWYER Need for hepatitis B screening test HEPATITIS B SURFACE ANTIGEN Routine 03/16/2024 7:45 AM WIRE SAWYER Need for hepatitis B screening test HEPATITIS C ANTIBODY Routine 03/16/2024 7:45 AM WIRE SAWYER Encounter for hepatitis C screening test for low risk patient SCREENING MAMMOGRAM BILATERAL W SERAFIN Schedule Routine, Read Routine (OP Routine) 02/09/2023 4:24 PM WIRE SAWYER Screening mammogram, encounter for from Last 3 Months or Most Recently Relevant to Health Maintenance Results * POCT hemoglobin A1c (03/21/2024 10:43 AM WIRE SAWYER) Hemoglobin A1C, POC 7.9 4.0 - 5.6 % Blood 03/21/2024 10:4 3 AM WIRE SAWYER Bhavana Castorena NP POINT OF CARE TEST ORDERABLES Final Result * Thyroid Function [place] (03/16/2024 7:45 AM WIRE SAWYER) Pathologist [facility] TSH 1.180 0.450 - 4.500 uIU/mL [facility] - 01 Comment: No apparent thyroid disorder. Additional testing not indicated. In rare instances, Secondary Hypothyroidism as well as Subclinical Hypothyroidism have been reported in some patients with normal TSH values. Blood 03/16/2024 7:45 AM WIRE SAWYER 03/16/2024 Narrative [facility] - 03/17/2024 2:07 AM WIRE SAWYER Performed at: - [address] [id number] Director Consumer Affairs: Salvatore Chase PhD, Phone: [phone] Denise Regalado MD LAB BLOOD ORDERABLES F inal Result [facility] - 01 * CBC with auto differential (03/16/2024 7:45 AM WIRE SAWYER) Pathologist [facility] WBC 8.5 3.4 - 10.8 x10E3/uL [facility] [...] [facility] - 01 Blood 03/16/2024 7:45 AM WIRE SAWYER 03/16/2024 Narrative [facility] - 03/17/2024 12:06 AM WIRE SAWYER Performed at: [address] [place] [id number] Director Consumer Affairs: Salvatore Chase PhD, Phone: [phone] Denise Regalado MD LAB BLOOD ORDERABLES F inal Result [facility] - * Hepatitis C antibody Blood (03/16/2024 7:45 AM WIRE SAWYER) [facility] Hep C Ab Non Reactive Non Reactive [facility] - 01 Comment: HCV antibody alone does not differentiate between previously resolved infection and active infection. Equivocal and Reactive HCV antibody results should be followed up with an HCV RNA test to support the diagnosis of active HCV infection. Blood 03/16/2024 7:45 AM WIRE SAWYER 03/16/2024 Narrative [facility] - 03/17/2024 5:07 AM WIRE SAWYER Performed at: [address] [place] [id number] Director Consumer Affairs: Salvatore Chase PhD, Phone: [phone] Denise Regalado MD LAB MICROBIOLOGY - GEN ERAL ORDERABLES Final Result Performing Organization Address [facility] Co de Phone Number [facility] - * Albumin Creatinine Ratio, Urine (03/16/2024 7:45 AM WIRE SAWYER) [facility] Creatinine ur 186.6 Not Estab. mg/dL [facility] - 01 Microalbumin, ur 22.6 Not Estab. ug/mL [facility] - 01 Microalbumin/cre at ratio 12 0 - 29 mg/g creat [facility] - 01 Comment: Normal: 0 - 29 Moderately increased: 30 - 300 Severely increased: >300 Urine 03/16/2024 7:45 AM WIRE SAWYER 03/16/2024 Narrative [facility] - 03/17/2024 5:07 AM WIRE SAWYER Performed at: [address] [place], [place] [id number] Director Consumer Affairs: Salvatore Chase PhD, Phone: [employer] Denise Regalado MD LAB URINE ORDERABLES F inal Result Performing Organization Address [facility] de Phone Number [facility] * Hepatitis B core antibody, IgM Blood (03/16/2024 7:45 AM WIRE SAWYER) [facility] Hep B core IgM Negative Negative [facility] - Blood 03/16/2024 7:45 AM WIRE SAWYER 03/16/2024 Narrative [facility] - 03/17/2024 5:07 AM WIRE SAWYER Performed at: [address] [id number] Director Consumer Affairs: Salvatore Chase PhD, Phone: [phone] Denise Regalado MD LAB MICROBIOLOGY - GEN ERAL ORDERABLES Final Result Performing Organization Address [facility] de Phone Number [facility] * Hepatitis B surface antibody (immune status) Blood (03/16/2024 7:45 AM WIRE SAWYER) [facility] HBsAb (immune status) Non Reactive [facility] - 01 Comment: Non Reactive: Not immune to HBV infection. Equivocal: Unable to determine if anti-HBs is present at levels consistent with immunity. Reactive: Anti-HBs concentration detected at greater than 10 mIU/mL. Individual is considered to be immune to infection with HBV. Blood 03/16/2024 7:45 AM WIRE SAWYER 03/16/2024 Narrative [facility] - 03/17/2024 5:07 AM WIRE SAWYER Performed at: [address] [id number] Director Consumer Affairs: Salvatore Chase PhD, Phone: [phone] Denise Regalado MD LAB MICROBIOLOGY - GEN ERAL ORDERABLES Final Result Performing Organization Address City/[facility] Co de Phone Number [facility] - * Hepatitis B Surface Antigen Blood (03/16/2024 7:45 AM WIRE SAWYER) HepBsAg Negative Negative [facility] - 01 Blood 03/16/2024 7:45 AM WIRE SAWYER 03/16/2024 Narrative [facility] - 03/17/2024 5:07 AM WIRE SAWYER Performed at: [address] [id number] Director Consumer Affairs: Salvatore Chase PhD, Phone: [phone] Denise Regalado MD LAB MICROBIOLOGY - GEN ERAL ORDERABLES Final Result Performing Organization Address City/[facility]/ZIP Co de Phone Number [facility] - * Lipid panel (03/16/2024 7:45 AM WIRE SAWYER) Cholesterol 135 100 - 199 mg/dL [facility] - 01 Triglycerides 99 0 - 149 mg/dL [facility] - 01 HDL Cholesterol 41 >39 mg/dL [facility] - 01 VLDL 19 5 - 40 mg/dL [facility] - 01 LDL, calculated 75 0 - 99 mg/dL [facility] - 01 Blood 03/16/2024 7:45 AM WIRE SAWYER 03/16/2024 Narrative [facility] - 03/17/2024 1:06 AM WIRE SAWYER Performed at: - [facility] [address] [id number] Director Consumer Affairs: Salvatore Chase PhD, Phone: [phone] Denise Regalado MD LAB BLOOD ORDERABLES F inal Result [facility] - 01 * (ABNORMAL) Comprehensive metabolic panel (03/16/2024 7:45 AM WIRE SAWYER) Pathologist [facility] Glucose 183(H) 70 - 99 mg/dL [facility] [...] [facility] - 01 Blood 03/16/2024 7:45 AM WIRE SAWYER 03/16/2024 Narrative [facility] - 03/17/2024 1:06 AM WIRE SAWYER Performed at: - [facility] [address] [id number] Director Consumer Affairs: Salvatore Chase PhD, Phone: [phone] Denise Regalado MD LAB BLOOD ORDERABLES F inal Result [facility] - 01 * Screening Mammogram Bilateral W Serafin (02/09/2023 4:24 PM WIRE SAWYER) Anatomical Region Laterality Modality Breast Bilateral Mammography Impressions 02/09/2023 4:33 PM WIRE SAWYER BI-RADS ATLAS category (overall): 1 - Negative There is no mammographic evidence of malignancy. A 1 year screening mammogram is recommended. The patient has been or will be contacted. We recommend annual screening mammography for women at average risk of breast cancer beginning at age 40, based on guidelines of the [employer] (ACR Practice Parameter for the Performance of Screening and Diagnostic Mammography) and [employer]. For women with and elevated risk of breast cancer, please refer to the ACR Practice Parameter for specific screening recommendations. The patient will be entered into a reminder system with a target due date of 1 year for her next screening exam. Narrative 02/09/2023 4:33 PM WIRE SAWYER Screening Mammogram Bilateral W Serafin: 02/09/23 The [...] Relevant to Health Maintenance Insurance AETNA SIG [id number] AETNA SIG [id number] Care Teams Patient Observation Assistant Relationship Specialty Start Date End Date Bhavana Castorena NP [address] [address] PCP - General Family Medicine 03/21/24
--- OUTSIDE RECORDS SUMMARY | 2024-06-11 19:29 | XMS_ITS | Encounter Summary ---
Author Organization [facility] Facility Care Team Providers Care Aged Or Disabled Carer Name Role Phone Maykel Hardwick MD Primary Care Provi ritika Denise Regalado MD Primary Care Provider Bhavana Castorena NP Primary Care Provider [phone] Encounter Details Date Type Department Care Team (Latest Contact Info) Description 04/12/2016 Orders Only [facility] CLINCON[facility] ProviderTom MD [address] [place] [address] Social History Tobacco Use Types Packs/Day Years Used Date Smoking Tobacco: Never Assessed Comments Unknown Sex and Gender Information Value Date Recorded Sex Assigned at Not on file Legal Sex Female 8:40 AM DELINQUENCY PREVENTION OFFICER Gender Identity Not on file Sexual Orientation Not on file documented as of this encounter Plan of Treatment Not on file documented as of this encounter Procedures Procedure Name Priority Date/Time Associated Diagnosis Comments CARDIOLOGY REPORT 04/14/2016 12: 00 AM DELINQUENCY PREVENTION OFFICER documented in this encounter Results * CARDIOLOGY REPORT (04/14/2016 12:00 AM DELINQUENCY PREVENTION OFFICER) Anatomical Region Laterality Modality Other Narrative 04/14/2016 12:00 AM DELINQUENCY PREVENTION OFFICER Ordered by an unspecified provider. Historical Provider [...] documented as of this encounter Care Teams Aged Or Disabled Carer Relationship Specialty Start Date End Date Maykel Hardwick MD [address] [facility] [address] [place] [address] PCP - General Family Medicine 09/13/18 09/05/22 Denise Regalado MD [address] [facility] [address] [place] [address] PCP - General Family Practice 09/06/22 03/20/24 Bhavana Castorena NP [address] [facility] [address] [place] [address] PCP - General Family Medicine 03/21/24 documented as of this encounter
--- OUTSIDE RECORDS SUMMARY | 2024-06-11 19:29 | XMS_ITS | Encounter Summary ---
Author Organization [facility] Facility Care Team Providers Care Journeyman Molder Name Role Phone Maykel Hardwick MD Primary Care Provi ritika Denise Regalado MD Primary Care Provider Bhavana Castorena NP Primary Care Provider [phone] Encounter Details Date Type Department Care Team (Latest Contact Info) Description 05/27/2016 Orders Only [facility] CLINCON[facility] ProviderTom MD [address] [place] [address] Social History Tobacco Use Types Packs/Day Years Used Date Smoking Tobacco: Never Assessed Comments Unknown Sex and Gender Information Value Date Recorded Sex Assigned at Not on file Legal Sex Female 8:40 AM STRAPPER Gender Identity Not on file Sexual Orientation [...] documented as of this encounter Care Teams Journeyman Molder Relationship Specialty Start Date End Date Maykel Hardwick MD [address] [place] [address] PCP - General Family Medicine 09/13/18 09/05/22 Denise Regalado MD [address] [place] [address] PCP - General Family Practice 09/06/22 03/20/24 Bhavana Castorena NP [address] [place] [address] PCP - General Family Medicine 03/21/24 documented as of this encounter
--- OUTSIDE RECORDS SUMMARY | 2024-06-11 19:29 | XMS_ITS | Encounter Summary ---
Author Organization [facility] Facility Care Team Providers Care Technology Solutions Architect Name Role Phone Maykel Hardwick MD Primary Care Provi ritika Denise Regalado MD Primary Care Provider Bhavana Castorena NP Primary Care Provider [phone] Encounter Details Date Type Department Care Team (Latest Contact Info) Description 07/21/2017 Orders Only [facility] CLINCONV ProviderTom MD [address] [place] [address] Social History Tobacco Use Types Packs/Day Years Used Date Smoking Tobacco: Never Assessed Comments Unknown Sex and Gender Information Value Date Recorded Sex Assigned at Not on file Legal Sex Female 8:40 AM HEALTH THERAPIST Gender Identity Not on file Sexual Orientation [...] documented as of this encounter Care Teams Technology Solutions Architect Relationship Specialty Start Date End Date Maykel Hardwick MD [address] [facility] [address] [place] [address] PCP - General Family Medicine 09/13/18 09/05/22 Denise Regalado MD [address] [facility] [address] [place] [address] PCP - General Family Practice 09/06/22 03/20/24 Bhavana Castorena NP [address] [facility] [address] [place] [address] PCP - General Family Medicine 03/21/24 documented as of this encounter
--- OUTSIDE RECORDS SUMMARY | 2024-06-11 19:29 | XMS_ITS | Clinical Summary ---
Author Organization [facility] / [facility] Address [address] [place] [address] Care Team Providers Care Inhalation Therapy Aides Teacher Name Role Phone None, Provider Primary Care [...] 09/03/2007 COVID-19 Vaccine (2023-2 5 season) 2023 Meningococcal B Vaccine Aged Out No l onger eligible based on patient's age to complete this topic Meningococcal Vaccine Aged Out No tomas jesi eligible based on patient's age to complete this topic Pneumococcal Vaccine: Pediatrics (0 to 5 Years) and At-Risk Patients (6 to 49 Years) Aged Out No longer eligible b ased on patient's age to complete this topic RSV Immunizations Under 20 Months Aged Out No longer eligible b ased on patient's age to complete this topic Care Teams Inhalation Therapy Aides Teacher Relationship Specialty Start Date End Date None, Provider, PCP - General UNKNOWN PHYSICIAN SPECIALTY 03/17/22
[2024-06-11 19:40] VITALS: BP 114/69; PULSE 78; RESP 14; TEMP 36.6; O2SAT 100
--- NOTE | 2024-06-11 19:40 | ECG_ITS ---
Test Date: 2024-06-11 19:54:13 Measurements Intervals [place] Rate: 74 P: 55 FL: 164 QRS: 31 QRSD: 82 T: 30 QT: 397 QTc: 443 Interpretive Statements SINUS RHYTHM VOLTAGE CRITERIA FOR LVH BORDERLINE ST-T WAVE ABNORMALITY- ANTEROLAT/INF LEADS BORDERLINE ECG Compared to ECG 05/29/2024 02:28:31 NO SIGNIFICANT CHANGE Electronically Signed On 06-11-2024 19:56:22 CDT by Josias Vigil D.O.
[2024-06-11 20:11] LABS: Basophils Absolute Auto 0.1 K/mm3 (0.0-0.1); Basophils Percent Auto 1.2 % (0.2-1.2); Eosinophils Absolute Auto 0.3 K/mm3 (0-0.3); Eosinophils Percent Auto 2.8 % (0-4.4); Hematocrit 39.9 % (37.0-47.0); Hemoglobin 13.3 g/dL (12.0-15.0); Immature Granulocyte Absolute 0.02 K/mm3 (0.00-0.031); Immature Granulocyte Percent A 0.2 % (0-0.5); Lymphocytes Absolute Auto 4.25 K/mm3 (0.9-3.2); Lymphocytes Percent Auto 45.9 % (18.3-44.2); Mean Corpuscular HGB Conc 33.3 g/dl (32-36); Mean Corpuscular Hemoglobin 30.4 pg (26-34); Mean Corpuscular Volume 91.3 fl (80-100); Mean Platelet Volume 10.3 fl (7.4-10.4); Monocytes Absolute Auto 0.5 K/mm3 (0.1-0.6); Monocytes Percent Auto 5.2 % (2.6-8.5); Neutrophils Absolute Auto 4.1 K/mm3 (1.3-6.7); Neutrophils Percent Auto 44.7 % (45.5-73.1); Platelet Count Result 328 k/mm3 (150-375); Red Blood Count 4.37 M/mm3 (4.2-5.4); Red Cell Distribution Width 12.7 % (11.5-14.5); White Blood Count 9.3 K/mm3 (4.5-10.0)
[2024-06-11 20:23] LABS: Alanine Aminotransferase 28 U/L (6-35); Albumin Level 4.3 g/dL (3.5-5.1); Alkaline Phosphatase 69 U/L (38-126); Anion Gap 8 mmol/L (4-12); Aspartate Amino Transferase 33 U/L (14-36); Bilirubin,Total 0.6 mg/dL (0.2-1.3); Blood Urea Nitrogen 13 mg/dL (7-17); Calcium 9.1 mg/dL (8.4-10.2); Carbon Dioxide 27 mmol/L (22-30); Chloride 106 mmol/L (98-107); Estimated Glomerular Filt Rate > 60; Glucose 107 mg/dL (65-110); Lipase 110 U/L (23-300); Potassium 3.8 mmol/L (3.4-5.0); Prothrombin Time 13.1 Seconds (11.1-14.7); Sodium 141 mmol/L (137-145)
[2024-06-11 20:24] LABS: Partial Thromboplastin Time 26.5 Seconds (22.3-36.8)
[2024-06-11 20:33] LABS: Troponin I < 0.012 ng/mL (0.000-0.034)
[2024-06-11 22:08] VITALS: BP 125/76; PULSE 85; PULSE 87; RESP 16; O2SAT 100
[2024-06-11 22:25] VITALS: O2SAT 97
--- OUTSIDE RECORDS SUMMARY | 2024-06-11 22:33 | XMS_ITS | Clinical Summary ---
Author Organization [facility] Address [address] [place] [address] Phone Care Team Providers Care Methods Time Analyst Name Role Phone Maykel Hardwick MD Primary [...] on file Legal Sex Female 4:[address] FLUSHER DRIVER Gender Identity Not on file Sexual Orientation Not on file Last Filed Vital Signs Vital Sign Reading Time Taken Comments Blood Pressure 99/60 01/09/2018 5:[address] FLUSHER DRIVER Pulse 75 01/09/2018 5:[address] FLUSHER DRIVER Temperature 36.6 C (97.9 F) 01/09/2018 3:[address] FLUSHER DRIVER Respiratory Rate 21 01/09/2018 5:[address] FLUSHER DRIVER Oxygen Saturation 99% 01/09/2018 5:[address] FLUSHER DRIVER Inhaled Oxygen Concentration - - Weight 72.6 kg (160 lb) 01/09/2018 3:[address] FLUSHER DRIVER Height 172.7 cm (5' 8 ) 01/09/2018 3:[address] FLUSHER DRIVER Body Mass Index 24.33 01/09/2018 3:[address] FLUSHER DRIVER Plan of Treatment Health Maintenance Due Date [...] 2) 2016 INFLUENZA VACCINE (#1) 2023 Insurance [employer] ACCESS CHOICE Care Teams Methods Time Analyst Relationship Specialty Start Date End Date Maykel Hardwick MD PCP - General Family Practice 01/09/18
--- OUTSIDE RECORDS SUMMARY | 2024-06-11 22:34 | XMS_ITS | Encounter Summary ---
Author Organization [facility] Facility Care Team Providers Care Service Counter Cashier Name Role Phone Maykel Hardwick MD Primary Care Provi ritika Denise Regalado MD Primary Care Provider Bhavana Castorena NP Primary Care Provider [phone] Encounter Details Date Type Department Care Team (Latest Contact Info) Description 07/20/2017 Orders Only [facility] CLINCONV Provider, MD Tom [address] [place] [address] Social History Tobacco Use Types Packs/Day Years Used Date Smoking Tobacco: Never Assessed Comments Unknown Sex and Gender Information Value Date Recorded Sex Assigned at Not on file Legal Sex Female 8:40 AM FOREIGN AGENT Gender Identity Not on file Sexual Orientation [...] documented as of this encounter Care Teams Service Counter Cashier Relationship Specialty Start Date End Date Maykel Hardwick MD [address] [facility] [address] [place] [address] PCP - General Family Medicine 09/13/18 09/05/22 Denise Regalado MD [address] [facility] [address] [place] [address] PCP - General Family Practice 09/06/22 03/20/24 Bhavana Castorena NP [address] [facility] [address] [place] [address] PCP - General Family Medicine 03/21/24 documented as of this encounter
--- OUTSIDE RECORDS SUMMARY | 2024-06-11 22:34 | XMS_ITS | Encounter Summary ---
Author Organization [facility] Facility Care Team Providers Care Furniture Painter Name Role Phone Maykel Hardwick MD Primary Care Provi ritika Denise Regalado MD Primary Care Provider Bhavana Castorena NP Primary Care Provider [phone] Encounter Details Date Type Department Care Team (Latest Contact Info) Description 04/12/2016 Orders Only [facility] CLINCONV ProviderTom MD [address] [place] [address] Social History Tobacco Use Types Packs/Day Years Used Date Smoking Tobacco: Never Assessed Comments Unknown Sex and Gender Information Value Date Recorded Sex Assigned at Not on file Legal Sex Female 8:40 AM UNIT DIRECTOR Gender Identity Not on file Sexual Orientation Not on file documented as of this encounter Plan of Treatment Not on file documented as of this encounter Procedures Procedure Name Priority Date/Time Associated Diagnosis Comments CARDIOLOGY REPORT 04/14/2016 12: 00 AM UNIT DIRECTOR documented in this encounter Results * CARDIOLOGY REPORT (04/14/2016 12:00 AM UNIT DIRECTOR) Anatomical Region Laterality Modality Other Narrative 04/14/2016 12:00 AM UNIT DIRECTOR Ordered by an unspecified provider. Historical Provider [...] documented as of this encounter Care Teams Furniture Painter Relationship Specialty Start Date End Date Maykel Hardwick MD [address] [facility] [address] [place] [address] PCP - General Family Medicine 09/13/18 09/05/22 Denise Regalado MD [address] [facility] [address] [place] [address] PCP - General Family Practice 09/06/22 03/20/24 Bhavana Castorena NP [address] [facility] [address] [place] [address] PCP - General Family Medicine 03/21/24 documented as of this encounter
--- OUTSIDE RECORDS SUMMARY | 2024-06-11 22:34 | XMS_ITS | Encounter Summary ---
Author Organization [facility] Facility Care Team Providers Care Industrial Gas Fitter Name Role Phone Maykel Hardwick MD Primary Care Provi ritika Denise Regalado MD Primary Care Provider Bhavana Castorena NP Primary Care Provider [phone] Encounter Details Date Type Department Care Team (Latest Contact Info) Description 07/19/2017 Orders Only [facility] CLINCONV ProviderTom MD [address] [place] [address] Social History Tobacco Use Types Packs/Day Years Used Date Smoking Tobacco: Never Assessed Comments Unknown Sex and Gender Information Value Date Recorded Sex Assigned at Not on file Legal Sex Female 8:40 AM BIGHT MAKER Gender Identity Not on file Sexual Orientation [...] documented as of this encounter Care Teams Industrial Gas Fitter Relationship Specialty Start Date End Date Maykel Hardwick MD [address] [facility] [address] [place] [address] PCP - General Family Medicine 09/13/18 09/05/22 Denise Regalado MD [address] [facility] [address] [place] [address] PCP - General Family Practice 09/06/22 03/20/24 Bhavana Castorena NP [address] [place] [address] PCP - General Family Medicine 03/21/24 documented as of this encounter
--- OUTSIDE RECORDS SUMMARY | 2024-06-11 22:34 | XMS_ITS | Encounter Summary ---
Author Organization [facility] Facility Care Team Providers Care Museum Curator Name Role Phone Maykel Hardwick MD Primary Care Provi ritika Denise Regalado MD Primary Care Provider Bhavana Castorena NP Primary Care Provider [phone] Encounter Details Date Type Department Care Team (Latest Contact Info) Description 09/04/2016 Orders Only [facility] CLINCONV ProviderTom MD [address] [place] [address] Social History Tobacco Use Types Packs/Day Years Used Date Smoking Tobacco: Never Assessed Comments Unknown Sex and Gender Information Value Date Recorded Sex Assigned at Not on file Legal Sex Female 8:40 AM TIMBER MANAGEMENT ASSISTANT Gender Identity Not on file Sexual [...] documented as of this encounter Care Teams Museum Curator Relationship Specialty Start Date End Date Maykel Hardwick MD [address] [facility] [address] [place] [address] PCP - General Family Medicine 09/13/18 09/05/22 Denise Regalado MD [address] [facility] [address] [place] [address] PCP - General Family Practice 09/06/22 03/20/24 Bhavana Castorena NP [address] [facility] [address] [place] [address] PCP - General Family Medicine 03/21/24 documented as of this encounter
--- OUTSIDE RECORDS SUMMARY | 2024-06-11 22:34 | XMS_ITS | Clinical Summary ---
Author Organization [facility] Address [address] [place] [address] Care Team Providers Care Personnel Specialist Name Role Phone Maykel Hardwick MD Primary Care Provi [facility] Source Comments [facility],non-owned Affiliates and Associated Physician Practices is amultiple site organization consisting of ambulatory clinics and hospital sitesin [place], [place], [place] and [place]. This disclosure is being madepursuant to the Care Everywhere program and may not contain all information available regarding this patient. Last updated 17.[facility] Allergies Active Allergy Reactions Criticality Noted Date [...] - COLON CA SCREENING 1966 MAMMOGRAM 1966 HIV SCREENING 1981 HEPATITIS C SCREENING 06/24/1984 DTAP/TDAP/TD VACCINES (1 - Tdap) 1985 HEPATITIS B VACCINE (1 of 3 - 19+ 3-dose series) 1985 PNEUMOCOCCAL VACCINE 50+ (1 of 1 - PCV) 2016 ZOSTER VACCINE (1 of 2) 2016 COVID-19 VACCINE (1 - 2023-2 5 season) 2023 DEPRESSION SCREENING [...] patient's age to complete this topic Insurance ANTH Advance Directives * Full Code (Latest Code Status on File) Date Activated Date Inactivated Comments 08/01/2016 2:39 AM 08/01/2016 6:49 PM Care Teams Personnel Specialist Relationship Specialty Start Date End Date Maykel Hardwick MD PCP - General Family Medicine 08/01/16
--- OUTSIDE RECORDS SUMMARY | 2024-06-11 22:34 | XMS_ITS | Clinical Summary ---
Author Organization [facility] Address [address] [place] [address] Care Team Providers Care Grain Elevator Clerk Name Role Phone Bhavana Castorena NP Primary Care Provider [phone] Allergies Active Allergy Reactions Criticality Noted Date Comments Aspirin Nausea only Low 06/02/2018 Glipizide Rash Medium 05/31/2023 Hydrocodone Shortness of breath High 09/08/2017 Itching Metformin Diarrhea Low 10/21/2022 Did not tolerate metformin ER 500 mg. Oxycodone-Acetaminophe n Anaphylaxis High 01/09/2018 Prednisone Shortness of breath High 06/02/2018 [place] Other (See comments) Low 09/08/2017 RESPIRATORY DISTRESS, [...] hyperglycemia, without long-term current use of insulin ([facility]) Use 1 strip daily to test blood [...] hyperglycemia, without long-term current use of insulin ([facility]) Use 1 strip 3x to check blood sugar before meals 200 each 2 4 01/11/20 25 Active lancets (MimecastTouch Delica Plus Lancet) 30 gauge miscIndications:Ty pe 2 diabetes mellitus with hyperglycemia, without long-term current use of insulin ([facility]) Test blood glucose level three times daily [...] 06/17/2016 Assessment & Plan (03/21/2024 11:47 AM CHAIR FINISHER): She has difficulty taking rybelsus due to [...] recurrence. Assessment & Plan (03/21/2024 10:50 AM CHAIR FINISHER): Hx SVT, has had an ablation. Currently [...] 6 Assessment & Plan (03/21/2024 10:51 AM CHAIR FINISHER): Stable on current medication. Continue pantoprazole as [...] 09/03/2015 Assessment & Plan (03/21/2024 10:52 AM CHAIR FINISHER): Currently on oral B12 Vitamin D deficiency 09/03/2015 Assessment & Plan (03/21/2024 11:48 AM CHAIR FINISHER): Continues on oral vitamin d Mixed hyperlipidemia 09/03/2015 Assessment & Plan (03/21/2024 10:52 AM CHAIR FINISHER): Lipid abnormalities are stable, reviewed previous lipid levels in [facility]. Continue statin therapy. Crestor (rosuvastatin) Order for [...] 05/12/2015 Assessment & Plan (03/21/2024 10:49 AM CHAIR FINISHER): Start to wean some medication per patient [...] Department Care Team Description 05/02/2024 2:15 PM CHAIR FINISHER Office Visit [facility] Care at [address] [address] Kita Logan PA Diarrhea, unspecified type (Primary Dx) 03/21/2024 10:30 AM CHAIR FINISHER Office Visit [facility] Primary Care at [address] [address] Bhavana Castorena NP Type 2 [...] current use of insulin (HCC) 03/21/2024 Telephone [facility] Primary Care at [address] [address] Bhavana Castorena NP PA for Ozempic 03/15/2024 Documentation [facility] Care [address] [place] [address] Ira Yo MD 03/14/2024 Orders Only [address] [address] Tierra Orlando NP Fibromyalgia from [...] on file Legal Sex Female 8:40 AM CHAIR FINISHER Gender Identity Not on file Sexual Orientation Not on file Obstetrics History Para Term AB IAB SAB Ectopic Multiple Livin g Live Births 3 3 3 Date Outcome GA Total Labor Labor/2nd/3rd Weight Sex Type Anes PTL Elaine A1 A5 Name Clin Term Term Term Last Filed Vital Signs Vital Sign Reading Time Taken Comments Blood Pressure 96/63 05/02/2024 2:10 PM CHAIR FINISHER Pulse 89 05/02/2024 2:10 PM CHAIR FINISHER Temperature 36.7 C (98 F) 05/02/2024 2:10 PM CHAIR FINISHER Respiratory Rate 16 05/02/2024 2:10 PM CHAIR FINISHER Oxygen Saturation 98% 05/02/2024 2:10 PM CHAIR FINISHER Inhaled Oxygen Concentration - - Weight 77.6 kg (171 lb) 05/02/2024 2:10 PM CHAIR FINISHER Height 149.9 cm (4' 11 ) 03/21/2024 10:32 AM CHAIR FINISHER Body Mass Index 34.54 03/21/2024 10:32 AM CHAIR FINISHER Plan of Treatment Health Maintenance Due Date [...] POCT HEMOGLOBIN A1C Routine 03/21/2024 10:43 AM CHAIR FINISHER Type 2 diabetes mellitus with hyperglycemia, without long-term current use of insulin (HCC) THYROID FUNCTION CASCADE Routine 03/16/2024 7:45 AM CHAIR FINISHER Type 2 diabetes mellitus without complication, without long-term current use of insulin (HCC) Sinus tachycardia ALBUMIN CREATININE RATIO, URINE Routine 03/16/2024 7:45 AM CHAIR FINISHER Type 2 diabetes mellitus without complication, without long-term current use of insulin (HCC) CBC WITH AUTO DIFFERENTIAL Routine 03/16/2024 7:45 AM CHAIR FINISHER Type 2 diabetes mellitus without complication, without long-term current use of insulin (HCC) LIPID PANEL Routine 03/16/2024 7:45 AM CHAIR FINISHER Type 2 diabetes mellitus without complication, without long-term current use of insulin (HCC) Mixed hyperlipidemia COMPREHENSIVE METABOLIC PANEL Routine 03/16/2024 7:45 AM CHAIR FINISHER Type 2 diabetes mellitus without complication, without long-term current use of insulin (HCC) Mixed hyperlipidemia HEPATITIS B CORE IGM Routine 03/16/2024 7:45 AM CHAIR FINISHER Need for hepatitis B screening test HEPATITIS B SURFACE ANTIBODY (IMMUNE STATUS) Routine 03/16/2024 7:45 AM CHAIR FINISHER Need for hepatitis B screening test HEPATITIS B SURFACE ANTIGEN Routine 03/16/2024 7:45 AM CHAIR FINISHER Need for hepatitis B screening test HEPATITIS C ANTIBODY Routine 03/16/2024 7:45 AM CHAIR FINISHER Encounter for hepatitis C screening test for low risk patient SCREENING MAMMOGRAM BILATERAL W SERAFIN Schedule Routine, Read Routine (OP Routine) 02/09/2023 4:24 PM CHAIR FINISHER Screening mammogram, encounter for from Last 3 Months or Most Recently Relevant to Health Maintenance Results * POCT hemoglobin A1c (03/21/2024 10:43 AM CHAIR FINISHER) Hemoglobin A1C, POC 7.9 4.0 - 5.6 % Blood 03/21/2024 10:4 3 AM CHAIR FINISHER Bhavana Castorena NP POINT OF CARE TEST ORDERABLES Final Result * Thyroid Function [place] (03/16/2024 7:45 AM CHAIR FINISHER) Pathologist [facility] TSH 1.180 0.450 - 4.500 uIU/mL [facility] - 01 Comment: No apparent thyroid disorder. Additional testing not indicated. In rare instances, Secondary Hypothyroidism as well as Subclinical Hypothyroidism have been reported in some patients with normal TSH values. Blood 03/16/2024 7:45 AM CHAIR FINISHER 03/16/2024 Narrative [facility] - 03/17/2024 2:07 AM CHAIR FINISHER Performed at: - [address] [id number] Street Cleaner: Salvatore Chase PhD, Phone: [phone] Denise Regalado MD LAB BLOOD ORDERABLES F inal Result [facility] - 01 * CBC with auto differential (03/16/2024 7:45 AM CHAIR FINISHER) Pathologist [facility] WBC 8.5 [...] [facility] - 01 Blood 03/16/2024 7:45 AM CHAIR FINISHER 03/16/2024 Narrative [facility] - 03/17/2024 12:06 AM CHAIR FINISHER Performed at: [address] [place] [id number] Cleaner: Salvatore Chase PhD, Phone: [phone] Denise Regalado MD LAB BLOOD ORDERABLES F inal Result Performing Organization Address [facility] Co de Phone Number [facility] - * Hepatitis C antibody Blood (03/16/2024 7:45 AM CHAIR FINISHER) [facility] Hep C Ab Non Reactive Non Reactive [facility] - 01 Comment: HCV antibody alone does not differentiate between previously resolved infection and active infection. Equivocal and Reactive HCV antibody results should be followed up with an HCV RNA test to support the diagnosis of active HCV infection. Blood 03/16/2024 7:45 AM CHAIR FINISHER 03/16/2024 Narrative [facility] - 03/17/2024 5:07 AM CHAIR FINISHER Performed at: [address] [place] [id number] Cleaner: Salvatore Chase PhD, Phone: [phone] Denise Regalado MD LAB MICROBIOLOGY - GEN ERAL ORDERABLES Final Result Performing Organization Address [facility] Co de Phone Number [facility] * Albumin Creatinine Ratio, Urine (03/16/2024 7:45 AM CHAIR FINISHER) Pathologist [facility] Creatinine ur 186.6 Not Estab. mg/dL [facility] - 01 Microalbumin, ur 22.6 Not Estab. ug/mL [facility] - 01 Microalbumin/cre at ratio 12 0 - 29 mg/g creat [facility] - 01 Comment: Normal: 0 - 29 Moderately increased: 30 - 300 Severely increased: >300 Urine 03/16/2024 7:45 AM CHAIR FINISHER 03/16/2024 Narrative [facility] - 03/17/2024 5:07 AM CHAIR FINISHER Performed at: [address] [place] [id number] Cleaner: Salvatore Chase PhD, Phone: [phone] Denise Regalado MD LAB URINE ORDERABLES F inal Result Performing Organization Address [facility] Co de Phone Number [facility] - * Hepatitis B core antibody, IgM Blood (03/16/2024 7:45 AM CHAIR FINISHER) [facility] Hep B core IgM Negative Negative [facility] - Blood 03/16/2024 7:45 AM CHAIR FINISHER 03/16/2024 Narrative [facility] - 03/17/2024 5:07 AM CHAIR FINISHER Performed at: [address] [place] [id number] Cleaner: Salvatore Chase PhD, Phone: [phone] Denise Regalado MD LAB MICROBIOLOGY - GEN ERAL ORDERABLES Final Result Performing Organization Address City/[facility]/ZIP Co de Phone Number [facility] - * Hepatitis B surface antibody (immune status) Blood (03/16/2024 7:45 AM CHAIR FINISHER) [facility] HBsAb (immune status) Non Reactive [facility] - 01 Comment: Non Reactive: Not immune to HBV infection. Equivocal: Unable to determine if anti-HBs is present at levels consistent with immunity. Reactive: Anti-HBs concentration detected at greater than 10 mIU/mL. Individual is considered to be immune to infection with HBV. Blood 03/16/2024 7:45 AM CHAIR FINISHER 03/16/2024 Narrative [facility] - 03/17/2024 5:07 AM CHAIR FINISHER Performed at: [facility] [id number] Street Cleaner: Salvatore Chase PhD, Phone: [phone] Denise Regalado MD LAB MICROBIOLOGY - GEN ERAL ORDERABLES Final Result Performing Organization Address City/[facility]/ZIP Co de Phone Number [facility] - * Hepatitis B Surface Antigen Blood (03/16/2024 7:45 AM CHAIR FINISHER) HepBsAg Negative Negative [facility] - Blood 03/16/2024 7:45 AM CHAIR FINISHER 03/16/2024 Narrative [facility] - 03/17/2024 5:07 AM CHAIR FINISHER Performed at: [address] [id number] Street Cleaner: Salvatore Chase PhD, Phone: [phone] us Denise Regalado MD LAB MICROBIOLOGY - GEN ERAL ORDERABLES Final Result Performing Organization Address [facility] Co de Phone Number [facility] - * Lipid panel (03/16/2024 7:45 AM CHAIR FINISHER) Cholesterol 135 100 - 199 mg/dL [facility] - 01 Triglycerides 99 0 - 149 mg/dL [facility] - 01 HDL Cholesterol 41 >39 mg/dL [facility] - 01 VLDL 19 5 - 40 mg/dL [facility] - 01 LDL, calculated 75 0 - 99 mg/dL [facility] - 01 Blood 03/16/2024 7:45 AM CHAIR FINISHER 03/16/2024 Narrative [facility] - 03/17/2024 1:06 AM CHAIR FINISHER Performed at: [address] [id number] Street Cleaner: Salvatore Chase PhD, Phone: [phone] us Denise Regalado MD LAB BLOOD ORDERABLES F inal Result Performing Organization Address [facility]/ZIP Co de Phone Number [facility] - 01 * (ABNORMAL) Comprehensive metabolic panel (03/16/2024 7:45 AM CHAIR FINISHER) Pathologist [facility] Glucose 183(H) [...] [facility] - 01 Blood 03/16/2024 7:45 AM CHAIR FINISHER 03/16/2024 Narrative [facility] - 03/17/2024 1:06 AM CHAIR FINISHER Performed at: - [facility] [id number] [address] Cleaner: Salvatore Chase PhD, Phone: [phone] us Denise Regalado MD LAB BLOOD ORDERABLES F inal Result Performing Organization Address City/[facility]/ZIP Co de Phone Number [facility] - 01 * Screening Mammogram Bilateral W Serafin (02/09/2023 4:24 PM CHAIR FINISHER) Anatomical Region Laterality Modality Breast Bilateral Mammography Impressions 02/09/2023 4:33 PM CHAIR FINISHER BI-RADS ATLAS category (overall): 1 - Negative There is no mammographic evidence of malignancy. A 1 year screening mammogram is recommended. The patient has been or will be contacted. We recommend annual screening mammography for women at average risk of breast cancer beginning at age 40, based on guidelines of the [employer] (ACR Practice Parameter for the Performance of Screening and Diagnostic Mammography) and [employer]. For women with and elevated risk of breast cancer, please refer to the ACR Practice Parameter for specific screening recommendations. The patient will be entered into a reminder system with a target due date of 1 year for her next screening exam. Narrative 02/09/2023 4:33 PM CHAIR FINISHER Screening Mammogram Bilateral W Serafin: 02/09/23 The [...] Relevant to Health Maintenance Insurance AETNA SIG [id number] AETNA SIG [id number] Care Teams Grain Elevator Clerk Relationship Specialty Start Date End Date Bhavana Castorena NP [address] [address] PCP - General Family Medicine 03/21/24
--- OUTSIDE RECORDS SUMMARY | 2024-06-11 22:34 | XMS_ITS | Encounter Summary ---
Author Organization [facility] Facility Care Team Providers Care Supervisor Tank House Name Role Phone Maykel Hardwick MD Primary Care Provi ritika Denise Regalado MD Primary Care Provider Bhavana Castorena NP Primary Care Provider [phone] Encounter Details Date Type Department Care Team (Latest Contact Info) Description 05/27/2016 Orders Only [facility] CLINCONV ProviderTom MD [address] [place] [address] Social History Tobacco Use Types Packs/Day Years Used Date Smoking Tobacco: Never Assessed Comments Unknown Sex and Gender Information Value Date Recorded Sex Assigned at Not on file Legal Sex Female 8:40 AM CORPORATE SECURITY OFFICER Gender Identity Not on file Sexual [...] documented as of this encounter Care Teams Supervisor Tank House Relationship Specialty Start Date End Date Maykel Hardwick MD [address] [place] [address] PCP - General Family Medicine 09/13/18 09/05/22 Denise Regalado MD [address] [place] [address] PCP - General Family Practice 09/06/22 03/20/24 Bhavana Castorena NP [address] [place] [address] PCP - General Family Medicine 03/21/24 documented as of this encounter
--- OUTSIDE RECORDS SUMMARY | 2024-06-11 22:34 | XMS_ITS | Referral Summary ---
Author Organization [facility] Address [address] [place] [address] Care Team Providers Care Cinder Snapper Name Role Phone Bhavana Castorena NP Primary Care Provider [phone] Encounters Date Type Department Care Team Description 05/02/2024 2:15 PM WORKERS' COMPENSATION MEDIATOR Office Visit [facility] Care at [address] [address] Kita Logan PA Diarrhea, unspecified type (Primary Dx) 03/21/2024 Telephone [facility] Primary Care at [address] [address] Bhavana Castorena NP PA for Ozempic 03/21/2024 10:30 AM WORKERS' COMPENSATION MEDIATOR Office Visit [facility] Primary Care at [address] [address] Bhavana Castorena NP Type 2 [...] current use of insulin (HCC) 03/15/[address] [address] Ira Yo MD 03/14/2024 Orders Only [facility] Virtual Care [address] [place] [phone] Tierra Orlando NP Fibromyalgia from Last 3 Months Allergies Active Allergy Reactions Criticality Noted Date Comments Aspirin Nausea only Low 06/02/2018 Glipizide Rash Medium 05/31/2023 Hydrocodone Shortness of breath High 09/08/2017 Itching Metformin Diarrhea Low 10/21/2022 Did not tolerate metformin ER 500 mg. Oxycodone-Acetaminophe n Anaphylaxis High 01/09/2018 Prednisone Shortness of breath High 06/02/2018 [place] Other (See comments) Low 09/08/2017 RESPIRATORY DISTRESS, [...] long-term current use of insulin ([facility]) Test blood glucose level three times daily [...] 06/17/2016 Assessment & Plan (03/21/2024 11:47 AM WORKERS' COMPENSATION MEDIATOR): She has difficulty taking rybelsus due to [...] recurrence. Assessment & Plan (03/21/2024 10:50 AM WORKERS' COMPENSATION MEDIATOR): Hx SVT, has had an ablation. Currently [...] 6 Assessment & Plan (03/21/2024 10:51 AM WORKERS' COMPENSATION MEDIATOR): Stable on current medication. Continue pantoprazole as [...] 09/03/2015 Assessment & Plan (03/21/2024 10:52 AM WORKERS' COMPENSATION MEDIATOR): Currently on oral B12 Vitamin D deficiency 09/03/2015 Assessment & Plan (03/21/2024 11:48 AM WORKERS' COMPENSATION MEDIATOR): Continues on oral vitamin d Mixed hyperlipidemia 09/03/2015 Assessment & Plan (03/21/2024 10:52 AM WORKERS' COMPENSATION MEDIATOR): Lipid abnormalities are stable, reviewed [facility] lipid [facility] in [facility]. Continue statin therapy. Crestor (rosuvastatin) Order [...] 05/12/2015 Assessment & Plan (03/21/2024 10:49 AM WORKERS' COMPENSATION MEDIATOR): Start to wean some medication per patient [...] on file Legal Sex Female 8:40 AM WORKERS' COMPENSATION MEDIATOR Gender Identity Not on file Sexual Orientation Not on file Last Filed Vital Signs Vital Sign Reading Time Taken Comments Blood Pressure 96/63 05/02/2024 2:10 PM WORKERS' COMPENSATION MEDIATOR Pulse 89 05/02/2024 2:10 PM WORKERS' COMPENSATION MEDIATOR Temperature 36.7 C (98 F) 05/02/2024 2:10 PM WORKERS' COMPENSATION MEDIATOR Respiratory Rate 16 05/02/2024 2:10 PM WORKERS' COMPENSATION MEDIATOR Oxygen Saturation 98% 05/02/2024 2:10 PM WORKERS' COMPENSATION MEDIATOR Inhaled Oxygen Concentration - - Weight 77.6 kg (171 lb) 05/02/2024 2:10 PM WORKERS' COMPENSATION MEDIATOR Height 149.9 cm (4' 11 ) 03/21/2024 10:32 AM WORKERS' COMPENSATION MEDIATOR Body Mass Index 34.54 03/21/2024 10:32 AM WORKERS' COMPENSATION MEDIATOR Plan of Treatment Not on file Procedures Procedure Name Priority Date/Time Associated Diagnosis Comments POCT HEMOGLOBIN A1C Routine 03/21/2024 10:43 AM WORKERS' COMPENSATION MEDIATOR Type 2 diabetes mellitus with hyperglycemia, without long-term current use of insulin (HCC) THYROID FUNCTION CASCADE Routine 03/16/2024 7:45 AM WORKERS' COMPENSATION MEDIATOR Type 2 diabetes mellitus without complication, without long-term current use of insulin (HCC) Sinus tachycardia ALBUMIN CREATININE RATIO, URINE Routine 03/16/2024 7:45 AM WORKERS' COMPENSATION MEDIATOR Type 2 diabetes mellitus without complication, without long-term current use of insulin (HCC) CBC WITH AUTO DIFFERENTIAL Routine 03/16/2024 7:45 AM WORKERS' COMPENSATION MEDIATOR Type 2 diabetes mellitus without complication, without long-term current use of insulin (HCC) LIPID PANEL Routine 03/16/2024 7:45 AM WORKERS' COMPENSATION MEDIATOR Type 2 diabetes mellitus without complication, without long-term current use of insulin (HCC) Mixed hyperlipidemia COMPREHENSIVE METABOLIC PANEL Routine 03/16/2024 7:45 AM WORKERS' COMPENSATION MEDIATOR Type 2 diabetes mellitus without complication, without long-term current use of insulin (HCC) Mixed hyperlipidemia HEPATITIS B CORE IGM Routine 03/16/2024 7:45 AM WORKERS' COMPENSATION MEDIATOR Need for hepatitis B screening test HEPATITIS B SURFACE ANTIBODY (IMMUNE STATUS) Routine 03/16/2024 7:45 AM WORKERS' COMPENSATION MEDIATOR Need for hepatitis B screening test HEPATITIS B SURFACE ANTIGEN Routine 03/16/2024 7:45 AM WORKERS' COMPENSATION MEDIATOR Need for hepatitis B screening test HEPATITIS C ANTIBODY Routine 03/16/2024 7:45 AM WORKERS' COMPENSATION MEDIATOR Encounter for hepatitis C screening test for low risk patient SCREENING MAMMOGRAM BILATERAL W SERAFIN Schedule Routine, Read Routine (OP Routine) 02/09/2023 4:24 PM WORKERS' COMPENSATION MEDIATOR Screening mammogram, encounter for from Last 3 Months or Most Recently Relevant to Health Maintenance Results * POCT hemoglobin A1c (03/21/2024 10:43 AM WORKERS' COMPENSATION MEDIATOR) Hemoglobin A1C, POC 7.9 4.0 - 5.6 % Blood 03/21/2024 10:4 3 AM WORKERS' COMPENSATION MEDIATOR Bhavana Castorena NP POINT OF CARE TEST ORDERABLES Final Result * Thyroid Function [place] (03/16/2024 7:45 AM WORKERS' COMPENSATION MEDIATOR) Pathologist [facility] TSH 1.180 0.450 - 4.500 uIU/mL [facility] - 01 Comment: No apparent thyroid disorder. Additional testing not indicated. In rare instances, Secondary Hypothyroidism as well as Subclinical Hypothyroidism have been reported in some patients with normal TSH values. Blood 03/16/2024 7:45 AM WORKERS' COMPENSATION MEDIATOR 03/16/2024 Narrative [facility] - 03/17/2024 2:07 AM WORKERS' COMPENSATION MEDIATOR Performed at: - [address] [id number] Indoor Landscape Architect: Salvatore Chase PhD, Phone: [phone] Denise Regalado MD LAB BLOOD ORDERABLES F inal Result [facility] - 01 * CBC with auto differential (03/16/2024 7:45 AM WORKERS' COMPENSATION MEDIATOR) Pathologist [facility] WBC 8.5 3.4 [...] [facility] - 01 Blood 03/16/2024 7:45 AM WORKERS' COMPENSATION MEDIATOR 03/16/2024 Narrative [facility] - 03/17/2024 12:06 AM WORKERS' COMPENSATION MEDIATOR Performed at: [address] [place] [id number] Indoor Landscape Architect: Salvatore Chase PhD, Phone: [phone] Denise Regalado MD LAB BLOOD ORDERABLES F inal Result [facility] - * Hepatitis C antibody Blood (03/16/2024 7:45 AM WORKERS' COMPENSATION MEDIATOR) [facility] Hep C Ab Non Reactive Non Reactive [facility] - 01 Comment: HCV antibody alone does not differentiate between previously resolved infection and active infection. Equivocal and Reactive HCV antibody results should be followed up with an HCV RNA test to support the diagnosis of active HCV infection. Blood 03/16/2024 7:45 AM WORKERS' COMPENSATION MEDIATOR 03/16/2024 Narrative [facility] - 03/17/2024 5:07 AM WORKERS' COMPENSATION MEDIATOR Performed at: [address] [place] [id number] Indoor Landscape Architect: Salvatore Chase PhD, Phone: [phone] Denise Regalado MD LAB MICROBIOLOGY - GEN ERAL ORDERABLES Final Result Performing Organization Address [facility] Co de Phone Number [facility] - * Albumin Creatinine Ratio, Urine (03/16/2024 7:45 AM WORKERS' COMPENSATION MEDIATOR) [facility] Creatinine ur 186.6 Not Estab. mg/dL [facility] - 01 Microalbumin, ur 22.6 Not Estab. ug/mL [facility] - 01 Microalbumin/cre at ratio 12 0 - 29 mg/g creat [facility] - 01 Comment: Normal: 0 - 29 Moderately increased: 30 - 300 Severely increased: >300 Urine 03/16/2024 7:45 AM WORKERS' COMPENSATION MEDIATOR 03/16/2024 Narrative [facility] - 03/17/2024 5:07 AM WORKERS' COMPENSATION MEDIATOR Performed at: [address] [place], [place] [id number] Indoor Landscape Architect: Salvatore Chase PhD, Phone: [employer] Denise Regalado MD LAB URINE ORDERABLES F inal Result Performing Organization Address [facility] de Phone Number [facility] * Hepatitis B core antibody, IgM Blood (03/16/2024 7:45 AM WORKERS' COMPENSATION MEDIATOR) [facility] Hep B core IgM Negative Negative [facility] - Blood 03/16/2024 7:45 AM WORKERS' COMPENSATION MEDIATOR 03/16/2024 Narrative [facility] - 03/17/2024 5:07 AM WORKERS' COMPENSATION MEDIATOR Performed at: [address] [id number] Indoor Landscape Architect: Salvatore Chase PhD, Phone: [phone] Denise Regalado MD LAB MICROBIOLOGY - GEN ERAL ORDERABLES Final Result Performing Organization Address [facility] de Phone Number [facility] * Hepatitis B surface antibody (immune status) Blood (03/16/2024 7:45 AM WORKERS' COMPENSATION MEDIATOR) [facility] HBsAb (immune status) Non Reactive [facility] - 01 Comment: Non Reactive: Not immune to HBV infection. Equivocal: Unable to determine if anti-HBs is present at levels consistent with immunity. Reactive: Anti-HBs concentration detected at greater than 10 mIU/mL. Individual is considered to be immune to infection with HBV. Blood 03/16/2024 7:45 AM WORKERS' COMPENSATION MEDIATOR 03/16/2024 Narrative [facility] - 03/17/2024 5:07 AM WORKERS' COMPENSATION MEDIATOR Performed at: [address] [id number] Indoor Landscape Architect: Salvatore Chase PhD, Phone: [phone] Denise Regalado MD LAB MICROBIOLOGY - GEN ERAL ORDERABLES Final Result Performing Organization Address [facility] Co de Phone Number [facility] - * Hepatitis B Surface Antigen Blood (03/16/2024 7:45 AM WORKERS' COMPENSATION MEDIATOR) HepBsAg Negative Negative [facility] - 01 Blood 03/16/2024 7:45 AM WORKERS' COMPENSATION MEDIATOR 03/16/2024 Narrative [facility] - 03/17/2024 5:07 AM WORKERS' COMPENSATION MEDIATOR Performed at: [address] [id number] Indoor Landscape Architect: Salvatore Chase PhD, Phone: [phone] Denise Regalado MD LAB MICROBIOLOGY - GEN ERAL ORDERABLES Final Result Performing Organization Address [facility]/ZIP Co de Phone Number [facility] - * Lipid panel (03/16/2024 7:45 AM WORKERS' COMPENSATION MEDIATOR) Cholesterol 135 100 - 199 mg/dL [facility] - 01 Triglycerides 99 0 - 149 mg/dL [facility] - 01 HDL Cholesterol 41 >39 mg/dL [facility] - 01 VLDL 19 5 - 40 mg/dL [facility] - 01 LDL, calculated 75 0 - 99 mg/dL [facility] - 01 Blood 03/16/2024 7:45 AM WORKERS' COMPENSATION MEDIATOR 03/16/2024 Narrative [facility] - 03/17/2024 1:06 AM WORKERS' COMPENSATION MEDIATOR Performed at: - [facility] [address] [id number] Indoor Landscape Architect: Salvatore Chase PhD, Phone: [phone] Denise Regalado MD LAB BLOOD ORDERABLES F inal Result [facility] - 01 * (ABNORMAL) Comprehensive metabolic panel (03/16/2024 7:45 AM WORKERS' COMPENSATION MEDIATOR) Pathologist [facility] Glucose 183(H) 70 [...] [facility] - 01 Blood 03/16/2024 7:45 AM WORKERS' COMPENSATION MEDIATOR 03/16/2024 Narrative [facility] - 03/17/2024 1:06 AM WORKERS' COMPENSATION MEDIATOR Performed at: - [facility] [address] [id number] Indoor Landscape Architect: Salvatore Chase PhD, Phone: [phone] Denise Regalado MD LAB BLOOD ORDERABLES F inal Result [facility] - 01 * Screening Mammogram Bilateral W Serafin (02/09/2023 4:24 PM WORKERS' COMPENSATION MEDIATOR) Anatomical Region Laterality Modality Breast Bilateral Mammography Impressions 02/09/2023 4:33 PM WORKERS' COMPENSATION MEDIATOR BI-RADS ATLAS category (overall): 1 - Negative There is no mammographic evidence of malignancy. A 1 year screening mammogram is recommended. The patient has been or will be contacted. We recommend annual screening mammography for women at average risk of breast cancer beginning at age 40, based on guidelines of the [employer] (ACR Practice Parameter for the Performance of Screening and Diagnostic Mammography) and [employer]. For women with and elevated risk of breast cancer, please refer to the ACR Practice Parameter for specific screening recommendations. The patient will be entered into a reminder system with a target due date of 1 year for her next screening exam. Narrative 02/09/2023 4:33 PM WORKERS' COMPENSATION MEDIATOR Screening Mammogram Bilateral W Serafin: 02/09/23 The [...] Relevant to Health Maintenance Insurance AETNA SIG [id number] AETNA SIG [id number] Care Teams Cinder Snapper Relationship Specialty Start Date End Date Bhavana Castorena NP [address] [address] PCP - General Family Medicine 03/21/24
--- OUTSIDE RECORDS SUMMARY | 2024-06-11 22:34 | XMS_ITS | Encounter Summary ---
Author Organization [facility] Facility Care Team Providers Care Woods Rider Name Role Phone Maykel Hardwick MD Primary Care Provi ritika Denise Regalado MD Primary Care Provider Bhavana Castorena NP Primary Care Provider [phone] Encounter Details Date Type Department Care Team (Latest Contact Info) Description 04/30/2015 Orders Only [facility] ProviderTom MD [address] [place] [id number] Social History Tobacco Use Types Packs/Day Years Used Date Smoking Tobacco: Never Assessed Comments Unknown Sex and Gender Information Value Date Recorded Sex Assigned at Not on file Legal Sex Female 8:40 AM ASSISTANT CASINO SHIFT MANAGER Gender Identity Not on file Sexual Orientation Not on file documented as of this encounter Plan of Treatment Not on file documented as of this encounter Procedures Procedure Name Priority Date/Time Associated Diagnosis Comments CARDIOLOGY REPORT 05/04/2015 12: 00 AM ASSISTANT CASINO SHIFT MANAGER documented in this encounter Results * CARDIOLOGY REPORT (05/04/2015 12:00 AM ASSISTANT CASINO SHIFT MANAGER) Anatomical Region Laterality Modality Other Narrative 05/04/2015 12:00 AM ASSISTANT CASINO SHIFT MANAGER Ordered by an unspecified provider. Historical [...] documented as of this encounter Care Teams Woods Rider Relationship Specialty Start Date End Date Maykel Hardwick MD [address] [facility] [address] [place] [address] PCP - General Family Medicine 09/13/18 09/05/22 Denise Regalado MD [address] [facility] [address] [place] [address] PCP - General Family Practice 09/06/22 03/20/24 Bhavana Castorena NP [address] [facility] [address] [place] [address] PCP - General Family Medicine 03/21/24 documented as of this encounter
--- OUTSIDE RECORDS SUMMARY | 2024-06-11 22:34 | XMS_ITS | Clinical Summary ---
Author Organization [facility] Address [address] [place] [address] Care Team Providers Care Mri Ct Tech Name Role Phone None, Provider Primary Care [...] age to complete this topic Care Teams Mri Ct Tech Relationship Specialty Start Date End Date None, Provider, PCP - General UNKNOWN PHYSICIAN SPECIALTY 03/17/22
--- OUTSIDE RECORDS SUMMARY | 2024-06-11 22:34 | XMS_ITS | Encounter Summary ---
Author Organization [facility] Facility Care Team Providers Care Record Retrieval Specialist Name Role Phone Maykel Hardwick MD Primary Care Provi ritika Denise Regalado MD Primary Care Provider Bhavana Castorena NP Primary Care Provider [phone] Encounter Details Date Type Department Care Team (Latest Contact Info) Description 07/21/2017 Orders Only [facility]INCON[facility] ProviderTom MD [address] [place] [address] Social History Tobacco Use Types Packs/Day Years Used Date Smoking Tobacco: Never Assessed Comments Unknown Sex and Gender Information Value Date Recorded Sex Assigned at Not on file Legal Sex Female 8:40 AM OCEAN LIFEGUARD Gender Identity Not on file Sexual Orientation [...] documented as of this encounter Care Teams Record Retrieval Specialist Relationship Specialty Start Date End Date Maykel Hardwick MD [address] [facility] [address] [place] [address] PCP - General Family Medicine 09/13/18 09/05/22 Denise Regalado MD [address] [facility] [address] [place] [address] PCP - General Family Practice 09/06/22 03/20/24 Bhavana Castorena NP [address] [facility] [address] [place] [address] PCP - General Family Medicine 03/21/24 documented as of this encounter
--- OUTSIDE RECORDS SUMMARY | 2024-06-11 22:34 | XMS_ITS | Encounter Summary ---
Author Organization [facility] Facility Care Team Providers Care Ammunition Assembly I Laborer Name Role Phone Maykel Hardwick MD Primary Care Provi ritika Denise Regalado MD Primary Care Provider Bhavana Castorena NP Primary Care Provider [phone] Encounter Details Date Type Department Care Team (Latest Contact Info) Description 09/08/2017 Orders Only [facility]INCON[facility] ProviderTom MD [address] [place] [address] Social History Tobacco Use Types Packs/Day Years Used Date Smoking Tobacco: Never Assessed Comments Unknown Sex and Gender Information Value Date Recorded Sex Assigned at Not on file Legal Sex Female 8:40 AM MANAGER TRANSPORTATION Gender Identity Not on file Sexual Orientation [...] documented as of this encounter Care Teams Ammunition Assembly I Laborer Relationship Specialty Start Date End Date Maykel Hardwick MD [address] [facility] [address] [place] [address] PCP - General Family Medicine 09/13/18 09/05/22 Denise Regalado MD [address] [facility] [address] [place] [address] PCP - General Family Practice 09/06/22 03/20/24 Bhavana Castorena NP [address] [facility] [address] [place] [address] PCP - General Family Medicine 03/21/24 documented as of this encounter
--- NOTE | 2024-06-11 22:44 | ECG_ITS ---
Test Date: 2024-06-11 22:51:40 Measurements Intervals [place] Rate: 68 P: 50 MS: 166 QRS: 24 QRSD: 88 T: 29 QT: 389 QTc: 416 Interpretive Statements SINUS RHYTHM VOLTAGE CRITERIA FOR LVH MINIMAL Q WAVES- HIGH LATERAL LEADS BORDERLINE ST-T WAVE ABNORMALITY- ANT/INF LEADS BASELINE ARTIFACT- I, III, AVR, AVL BORDERLINE ECG Compared to ECG 06/11/2024 19:54:13 NO SIGNIFICANT CHANGE Electronically Signed On 06-12-2024 06:24:20 CDT by Josias Vigil D.O.
--- NOTE | 2024-06-11 23:12 | ED_ITS ---
HPI - Chest Pain General Chief Complaint: Chest Pain Stated Complaint: sudden left arm pain, r chest pain Time Seen by Provider: 06/11/24 22:19 Source: patient Mode of arrival: ambulatory Limitations: no limitations History of Present Illness HPI narrative: This is a 58-year-old female with PMH of SVT, HLD who presents to the ED for chief complaint of sudden-onset left arm pain that started around 6:00 p.m. tonight. Patient states that this was a squeezing, cramping type pain to the left biceps triceps area the left arm. States that the pain lasted for couple hours and felt like it was slowly releasing. States that she had no chest pain. Denies associated nausea, vomiting, syncope, diaphoresis, numbness, weakness. Denies CAD but does endorse a history of SVT. Denies palpitations, leg swelling, shortness of breath. Related Data Home Medications ?Medication ?Instructions ?Recorded ?Confirmed ?Last Taken ?Type bupropion HCl 300 mg 24 hr tablet, 300 mg PO DAILY 03/15/21 11/23/23 Unknown History extended release metoprolol tartrate 50 mg tablet 50 mg PO DAILY 03/15/21 11/23/23 Unknown History milnacipran 50 mg tablet (Savella) 50 mg PO BID 03/15/21 11/23/23 Unknown History pantoprazole 40 mg tablet,delayed 40 mg PO DAILY 03/15/21 11/23/23 Unknown History release pregabalin 150 mg capsule 150 mg PO BID 04/01/22 11/23/23 Unknown History blood sugar diagnostic (OneTouch 11/23/23 11/23/23 Unknown History Verio test strips) cholecalciferol (vitamin D3) 125 125 mcg PO DAILY 11/23/23 11/23/23 Unknown History mcg (5,000 unit) tablet (Vitamin D3) lancets 30 gauge (OneTouch Delica 11/23/23 11/23/23 Unknown History Plus Lancet) semaglutide 3 mg tablet (Rybelsus) 3 mg PO DAILY 11/23/23 11/23/23 Unknown History Allergies Allergy/AdvReac Type Severity Reaction Status Date / Time codeine Allergy Severe Difficulty Verified 11/23/23 11:25 Breathing aspirin AdvReac Intermediate Nausea Verified 11/23/23 11:25 Review of Systems 2 Review of Systems: All systems as dictated in HPI [facility] Past Medical History Medical History Hyperlipidemia SVT (supraventricular tachycardia) Atypical chest pain Surgical History Surgical History H/O tubal ligation H/O: hysterectomy Family History Family History Father Heart disease Acute myocardial infarction Hypertension Grandparent Heart disease Mother Stomach cancer Social History Social History Smoking status: Former smoker Additional smoking assessment comments: quit 2007 Alcohol intake: never Substance use: never Living arrangements: with family Gender identity (if verbalized by the patient): Female Exam 2 Narrative: GENERAL: Well-appearing, well-nourished, and in no acute distress. HEAD: Normocephalic, atraumatic. EYES: PERRLA and EOMI. ENT: Nares clear, no rhinorrhea or epistaxis. Mucous membranes moist. Oropharynx without tonsillar hypertrophy exudate or other lesions. NECK: Supple. No adenopathy or masses. CHEST: No respiratory distress. Clear to auscultation. No wheezes rales or rhonchi HEART: Regular rate and rhythm. No murmur heard. Normal peripheral pulses. ABDOMEN: Soft, nontender, nondistended, normal active bowel sounds. MSK: Normal range of motion. No edema. SKIN: Warm, dry, no rash. NEURO: Alert and oriented x4. No focal deficits. PSYCH: Normal mood and affect. Course Vital Signs Vital signs: Vital Signs Temperature 97.8 F 06/11/24 19:40 Pulse Rate 78 06/11/24 19:40 Respiratory Rate 14 06/11/24 19:40 Blood Pressure 114/69 06/11/24 19:40 Pulse Oximetry 100 06/11/24 19:40 Oxygen Delivery Room Air 06/11/24 19:40 Temperature 97.8 F 06/11/24 19:40 Pulse Rate 83 06/11/24 23:44 Respiratory Rate 18 06/11/24 23:44 Blood Pressure 117/79 06/11/24 23:44 Pulse Oximetry 99 06/11/24 23:44 Oxygen Delivery Room Air 06/11/24 22:25 MDM - Chest Pain MDM Narrative Medical decision making narrative: This is a 58-year-old female presents to the ED for chief complaint of left arm pain onset today. Vitals are normal. Exam is unremarkable overall. Lab work shows normal troponin at the 0 and 3 are martin. Heart score is 2. Chest x-ray shows no acute findings. Presentation most likely consistent with musculoskeletal type pain. She did not have any chest pain in the ER or repeat of her arm pain. She feels comfortable with discharge home and follow-up with PCP. Patient will be discharged in stable condition. Supportive measures discussed and return precautions given. Patient is understanding and agreeable with plan for discharge with PCP follow-up. Lab Data 06/11/24 20:01 06/11/24 20:01 Labs: Lab Results 06/11/24 06/11/24 Range/Units 20:01 22:47 WBC 9.3 (4.5-10.0) K/mm3 RBC 4.37 (4.2-5.4) M/mm3 Hgb 13.3 (12.0-15.0) g/dL Hct 39.9 (37.0-47.0) % MCV 91.3 (80-100) fl MCH 30.4 (26-34) pg MCHC 33.3 (32-36) g/dl RDW 12.7 (11.5-14.5) % Plt Count 328 (150-375) k/mm3 MPV 10.3 (7.4-10.4) fl Immature Gran % (Auto) 0.2 (0-0.5) % Neut % (Auto) 44.7 L (45.5-73.1) % Lymph % (Auto) 45.9 H (18.3-44.2) % [place] % (Auto) 5.2 (2.6-8.5) % Eos % (Auto) 2.8 (0-4.4) % Baso % (Auto) 1.2 (0.2-1.2) % Lymph # (Auto) 4.25 H (0.9-3.2) K/mm3 [place] # (Auto) 0.5 (0.1-0.6) K/mm3 Eos # (Auto) 0.3 (0-0.3) K/mm3 Baso # (Auto) 0.1 (0.0-0.1) K/mm3 Abs Immat Gran (auto) 0.02 (0.00-0.031) K/mm3 Absolute Neuts (auto) 4.1 (1.3-6.7) K/mm3 Absolute Nucleated RBC 0.000 (0.0-0.012) K/mm3 Nucleated RBC % 0.0 (0.0-0.2) % PT 13.1 (11.1-14.7) Seconds INR 1.0 APTT 26.5 (22.3-36.8) Seconds Sodium 141 (137-145) mmol/L Potassium 3.8 (3.4-5.0) mmol/L Chloride 106 (98-107) mmol/L Carbon Dioxide 27 (22-30) mmol/L Anion Gap 8 (4-12) mmol/L BUN 13 (7-17) mg/dL Creatinine 0.85 (0.7-1.0) mg/dL Estim Creat Clear Calc Not Reportable Estimated GFR > 60 (59 - ) Glucose 107 (65-110) mg/dL Calcium 9.1 (8.4-10.2) mg/dL Total Bilirubin 0.6 (0.2-1.3) mg/dL AST 33 (14-36) U/L ALT 28 (6-35) U/L Alkaline Phosphatase 69 (38-126) U/L Troponin I < 0.012 < 0.012 (0.000-0.034) ng/mL Total Protein 8.0 (6.3-8.2) g/dL Albumin 4.3 (3.5-5.1) g/dL Lipase 110 (23-300) U/L ECG Data EKG #1: ECG completion date: 06/11/24 ECG completion time: 19:40 Prior ECG tracings: available for review Interpretation: Sinus rhythm Rate 74 Normal QRS Normal QTC No acute ischemic findings EKG #2: ECG completion date: 06/11/24 ECG completion time: 22:51 Prior ECG tracings: available for review Interpretation: Sinus rhythm Rate 60 Unchanged from previous ECG this evening Discharge Plan Discharge Clinical Impression: Left upper arm pain Patient Disposition: Home Condition: Stable Instructions: Antibiotic Form Additional Instructions: Your exam and imaging today are reassuring overall. Please follow-up with your PCP on this issue. If you have any bouts of pain, take Tylenol and ibuprofen every 6 hours as needed. If you have any new or worsening symptoms please return to the ER for further evaluation. Patient Language: Nigerian Prescriptions: No Action pantoprazole 40 mg tablet,delayed release (DR/EC) 40 mg PO DAILY metoprolol tartrate 50 mg tablet 50 mg PO DAILY bupropion HCl 300 mg tablet extended release 24 hr 300 mg PO DAILY Savella 50 mg tablet 50 mg PO BID (DME) OneTouch Verio test strips Strip MISCELLANEOUS (DME) lancets [OneTouch Delica Plus Lancet] 30 gauge misc MISCELLANEOUS Rybelsus 3 mg tablet 3 mg PO DAILY cholecalciferol (vitamin D3) [Vitamin D3] 125 mcg (5,000 unit) Tablet 125 mcg PO DAILY amoxicillin 875 mg tablet 875 mg PO Q12H 10 Days Qty: 20 0RF fluticasone propionate [Flonase Allergy Relief] 50 mcg/actuation spray,suspension 1 spray intranasal BID Qty: 16 0RF Rx Instructions: administer into each nostril loratadine [Claritin] 10 mg tablet 10 mg PO DAILY Qty: 30 0RF pregabalin 150 mg capsule 150 mg PO BID alum-mag hydroxide-simeth [Maalox Advanced] 200-200-20 mg/5 mL suspension 15 ml PO QID PRN (Reason: indigestion) Qty: 3000 0RF Rx Instructions: administer between meals and at bedtime famotidine [Pepcid] 20 mg tablet 20 mg PO BID Qty: 20 0RF Follow-up/Referrals: PHYSICIAN NOT ON STAFF,NONSTAFF [Primary Care Provider] - Time of Disposition: 23:29 Quality HEART score for chest pain patients History: slightly suspicious ECG: normal Age: > 45 and < 65 years Risk factors: 1 or 2 risk factors Troponin: < or = to 1x normal limit Heart score: 2
[2024-06-11 23:14] LABS: Troponin I < 0.012 ng/mL (0.000-0.034)
[2024-06-11 23:43] VITALS: BP 117/79; PULSE 83; RESP 18; O2SAT 99
[2024-06-11 23:44] VITALS: BP 117/79; PULSE 83; RESP 18; O2SAT 99
== END 2024-06-11 23:45 | disposition home or self-care (01) ==
PROVIDERS: Student in an Organized Health Care Education/Training Program; Emergency Provider Physician Assistant
DX: M79.622 Pain in left upper arm (principal); E78.5 Hyperlipidemia, unspecified; Z87.891 Personal history of nicotine dependence; Z90.710 Acquired absence of both cervix and uterus; R94.31 Abnormal electrocardiogram [ECG] [EKG]
CPT/HCPCS: 36415; 71046; 80053; 83690; 84484; 85025; 85610; 85730; 93005; 99284